=== PATIENT | female | born 1935 | race Caucasian/White ===

== ENCOUNTER 2017-08-23 11:43 | Emergency (ER) | payer MEDICARE, BC ==
[2017-08-23 11:58] VITALS: RESP 18; TEMP 98
[2017-08-23] MEDS ORDERED: SODIUM CHLORIDE 0.9% 500 ML IV STA (12:00)
--- NOTE | 2017-08-23 12:04 | ED ---
General Adult HPI - General Chief complaint: Recheck/Abnormal Lab/Rx Stated complaint: UTI Time Seen by Provider: 08/23/17 11:45 Source: patient, family, RN notes reviewed, old records reviewed Mode of arrival: EMS Limitations: physical limitation - History of Present Illness Initial comments: 81-year-old female presents for evaluation of fatigue and generalized weakness. Patient has been treated for a UTI over the past 2 days with Macrobid. 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 Patient states she has had subjective fever. She also complains of a mild cough. She has had one fall in the past week, she did receive x-rays at her primary care physician's office and was noted to have a small likely subacute fracture within the pelvis and she has outpatient follow- up with orthopedics regarding this fracture. She is nonambulatory at baseline. No vomiting, no diarrhea. - Related Data Home Medications Medication Instructions Recorded Confirmed Aspirin EC [Ecotrin] 325 mg PO DAILY 08/23/17 08/23/17 Atenolol [Tenormin] 50 mg PO BID 08/23/17 08/23/17 Calcium Carbonate [Calcium] 600 mg PO DAILY 08/23/17 08/23/17 Cholecalciferol (Vitamin D3) 2,000 unit PO DAILY 08/23/17 08/23/17 [Vitamin D3] Cranberry Fruit Concentrate 450 mg PO DAILY 08/23/17 08/23/17 [Cranberry] Gabapentin 600 mg PO TID 08/23/17 08/23/17 Nitrofurantoin Monohyd/M-Cryst 100 mg PO Q12HR 08/23/17 08/23/17 [Macrobid] Polyethylene Glycol 3350 [Miralax] 17 gm PO HS 08/23/17 08/23/17 Ranitidine HCl [Zantac] 150 mg PO BID 08/23/17 08/23/17 Super B Complex 1 tab PO DAILY 08/23/17 08/23/17 amLODIPine [Norvasc] 5 mg PO DAILY 08/23/17 08/23/17 Allergies Allergy/AdvReac Type Severity Reaction Status Date / Time Penicillins AdvReac Rash/Hives Verified 08/23/17 11:58 Sulfa (Sulfonamide AdvReac Rash/Hives Verified 08/23/17 11:58 Antibiotics) Review of Systems ROS Statement: Those systems with pertinent positive or pertinent negative responses have been documented in the HPI. ROS Other: All systems not noted in ROS Statement are negative. Past Medical History Past Medical History: CVA/TIA, GERD/Reflux, Hyperlipidemia, Hypertension Additional Past Medical History / Comment(s): uti, leg atrophy History of Any Multi-Drug Resistant Organisms: None Reported Past Surgical History: Appendectomy, Back Surgery Additional Past Surgical History / Comment(s): cervical, cataracts Past Psychological History: No Psychological Hx Reported Smoking Status: Never smoker Past Alcohol Use History: None Reported Past Drug Use History: None Reported General Exam Limitations: physical limitation General appearance: alert, in no apparent distress Head exam: Present: atraumatic, normocephalic Eye exam: Present: normal appearance, PERRL ENT exam: Present: normal exam Neck exam: Present: normal inspection. Absent: tenderness, meningismus Respiratory exam: Present: normal lung sounds bilaterally. Absent: respiratory distress, wheezes Cardiovascular Exam: Present: regular rate, normal rhythm GI/Abdominal exam: Present: soft, distended. Absent: tenderness Extremities exam: Present: other (Bilateral lower extremity atrophy and deformity, no edema warm bilaterally) Neurological exam: Present: alert, oriented X3, CN II-XII intact. Absent: motor sensory deficit Psychiatric exam: Present: normal affect, normal mood Skin exam: Present: warm, dry, intact. Absent: cyanosis, diaphoretic Course Vital Signs 08/23/17 11:43 Temperature 98.0 F Pulse Rate 88 Respiratory 18 Rate Blood Pressure 156/81 O2 Sat by Pulse 97 Oximetry Medical Decision Making - Medical Decision Making 81-year-old female presenting with concerns for continued UTI despite outpatient antibiotics. Patient complained of fatigue and generalized weakness. Laboratory studies were obtained, white blood cell count 10.7, hemoglobin 10.8. Electrolytes shows mild hyponatremia 132, creatinine normal influenza negative, chest x-ray negative for focal pneumonia. UA shows 8 white blood cells which in and 81 -year-old female who straight caths is essentially a negative urine, she is on Macrobid urine cultures from August 21 are positive for greater than 100,000 CFU per mL of E. coli and greater than 100, 000 CFU per mL enterococcus, both of these are susceptible to nitrofurantoin which is medication the patient is currently on. ANTONELLA of 32, this is discussed with the pharmacist and given normal kidney function nitrofurantoin is acceptable. Patient will continue her outpatient antibiotic, she will also continue MiraLAX for some constipation issues and will maintain her appointment both with her primary care physician and with orthopedics regarding her known pelvic fracture. - Lab Data Result diagrams: 08/23/17 12:41 08/23/17 12:41 Lab Results 08/23/17 08/23/17 08/23/17 Range/Units 12:32 12:41 12:41 WBC 10.7 H (3.8-10.6) k/uL RBC 3.37 L (3.80-5.40) m/uL Hgb 10.8 L (11.4-16.0) gm/dL Hct 31.5 L (34.0-46.0) % MCV 93.4 (80.0-100.0) fL MCH 32.1 (25.0-35.0) pg MCHC 34.4 (31.0-37.0) g/dL RDW 14.1 (11.5-15.5) % Plt Count 156 (150-450) k/uL Neutrophils % 82 % Lymphocytes % 7 % Monocytes % 8 % Eosinophils % 1 % Basophils % 1 % Neutrophils # 8.8 H (1.3-7.7) k/uL Lymphocytes # 0.7 L (1.0-4.8) k/uL Monocytes # 0.9 (0-1.0) k/uL Eosinophils # 0.1 (0-0.7) k/uL Basophils # 0.1 (0-0.2) k/uL PT (9.0-12.0) sec INR (<1.2) APTT (22.0-30.0) sec Sodium 132 L (137-145) mmol/L Potassium 4.0 (3.5-5.1) mmol/L Chloride 96 L (98-107) mmol/L Carbon Dioxide 26 (22-30) mmol/L Anion Gap 10 mmol/L BUN 19 H (7-17) mg/dL Creatinine 0.56 (0.52-1.04) mg/dL Est GFR (MDRD) Af Amer >60 (>60 ml/min/1.73 sqM) Est GFR (MDRD) Non-Af >60 (>60 ml/min/1.73 sqM) Glucose 122 H (74-99) mg/dL Plasma Lactic Acid Cole (0.7-2.0) mmol/L Calcium 9.9 (8.4-10.2) mg/dL Magnesium 1.8 (1.6-2.3) mg/dL Total Bilirubin 1.4 H (0.2-1.3) mg/dL AST 38 H (14-36) U/L ALT 40 (9-52) U/L Alkaline Phosphatase 59 (38-126) U/L Troponin I (0.000-0.034) ng/mL Total Protein 6.6 (6.3-8.2) g/dL Albumin 3.9 (3.5-5.0) g/dL Urine Color Urine Appearance (Clear) Urine pH (5.0-8.0) Ur Specific Lawson (1.001-1.035) Urine Protein (Negative) Urine Glucose (UA) (Negative) Urine Ketones (Negative) Urine Blood (Negative) Urine Nitrite (Negative) Urine Bilirubin (Negative) Urine Urobilinogen (<2.0) mg/dL Ur Leukocyte Esterase (Negative) Urine RBC (0-5) /hpf Urine WBC (0-5) /hpf Ur Squamous Epith Cells (0-4) /hpf Amorphous Sediment (None) /hpf Urine Bacteria (None) /hpf Urine Mucus (None) /hpf Influenza Type A RNA Not Detected (Not Detectd) Influenza Type B (PCR) Not Detected (Not Detectd) 08/23/17 08/23/17 08/23/17 Range/Units 12:41 12:41 12:41 WBC (3.8-10.6) k/uL RBC (3.80-5.40) m/uL Hgb (11.4-16.0) gm/dL Hct (34.0-46.0) % MCV (80.0-100.0) fL MCH (25.0-35.0) pg MCHC (31.0-37.0) g/dL RDW (11.5-15.5) % Plt Count (150-450) k/uL Neutrophils % % Lymphocytes % % Monocytes % % Eosinophils % % Basophils % % Neutrophils # (1.3-7.7) k/uL Lymphocytes # (1.0-4.8) k/uL Monocytes # (0-1.0) k/uL Eosinophils # (0-0.7) k/uL Basophils # (0-0.2) k/uL PT 10.9 (9.0-12.0) sec INR 1.1 (<1.2) APTT 23.2 (22.0-30.0) sec Sodium (137-145) mmol/L Potassium (3.5-5.1) mmol/L Chloride (98-107) mmol/L Carbon Dioxide (22-30) mmol/L Anion Gap mmol/L BUN (7-17) mg/dL Creatinine (0.52-1.04) mg/dL Est GFR (MDRD) Af Amer (>60 ml/min/1.73 sqM) Est GFR (MDRD) Non-Af (>60 ml/min/1.73 sqM) Glucose (74-99) mg/dL Plasma Lactic Acid Cole 1.0 (0.7-2.0) mmol/L Calcium (8.4-10.2) mg/dL Magnesium (1.6-2.3) mg/dL Total Bilirubin (0.2-1.3) mg/dL AST (14-36) U/L ALT (9-52) U/L Alkaline Phosphatase (38-126) U/L Troponin I 0.028 (0.000-0.034) ng/mL Total Protein (6.3-8.2) g/dL Albumin (3.5-5.0) g/dL Urine Color Urine Appearance (Clear) Urine pH (5.0-8.0) Ur Specific Lawson (1.001-1.035) Urine Protein (Negative) Urine Glucose (UA) (Negative) Urine Ketones (Negative) Urine Blood (Negative) Urine Nitrite (Negative) Urine Bilirubin (Negative) Urine Urobilinogen (<2.0) mg/dL Ur Leukocyte Esterase (Negative) Urine RBC (0-5) /hpf Urine WBC (0-5) /hpf Ur Squamous Epith Cells (0-4) /hpf Amorphous Sediment (None) /hpf Urine Bacteria (None) /hpf Urine Mucus (None) /hpf Influenza Type A RNA (Not Detectd) Influenza Type B (PCR) (Not Detectd) 08/23/17 Range/Units 13:28 WBC (3.8-10.6) k/uL RBC (3.80-5.40) m/uL Hgb (11.4-16.0) gm/dL Hct (34.0-46.0) % MCV (80.0-100.0) fL MCH (25.0-35.0) pg MCHC (31.0-37.0) g/dL RDW (11.5-15.5) % Plt Count (150-450) k/uL Neutrophils % % Lymphocytes % % Monocytes % % Eosinophils % % Basophils % % Neutrophils # (1.3-7.7) k/uL Lymphocytes # (1.0-4.8) k/uL Monocytes # (0-1.0) k/uL Eosinophils # (0-0.7) k/uL Basophils # (0-0.2) k/uL PT (9.0-12.0) sec INR (<1.2) APTT (22.0-30.0) sec Sodium (137-145) mmol/L Potassium (3.5-5.1) mmol/L Chloride (98-107) mmol/L Carbon Dioxide (22-30) mmol/L Anion Gap mmol/L BUN (7-17) mg/dL Creatinine (0.52-1.04) mg/dL Est GFR (MDRD) Af Amer (>60 ml/min/1.73 sqM) Est GFR (MDRD) Non-Af (>60 ml/min/1.73 sqM) Glucose (74-99) mg/dL Plasma Lactic Acid Cole (0.7-2.0) mmol/L Calcium (8.4-10.2) mg/dL Magnesium (1.6-2.3) mg/dL Total Bilirubin (0.2-1.3) mg/dL AST (14-36) U/L ALT (9-52) U/L Alkaline Phosphatase (38-126) U/L Troponin I (0.000-0.034) ng/mL Total Protein (6.3-8.2) g/dL Albumin (3.5-5.0) g/dL Urine Color Yellow Urine Appearance Cloudy H (Clear) Urine pH 7.0 (5.0-8.0) Ur Specific Lawson 1.015 (1.001-1.035) Urine Protein Trace H (Negative) Urine Glucose (UA) Negative (Negative) Urine Ketones Negative (Negative) Urine Blood Negative (Negative) Urine Nitrite Negative (Negative) Urine Bilirubin Negative (Negative) Urine Urobilinogen 2.0 (<2.0) mg/dL Ur Leukocyte Esterase Trace H (Negative) Urine RBC <1 (0-5) /hpf Urine WBC 8 H (0-5) /hpf Ur Squamous Epith Cells 6 H (0-4) /hpf Amorphous Sediment Occasional H (None) /hpf Urine Bacteria Rare H (None) /hpf Urine Mucus Rare H (None) /hpf Influenza Type A RNA (Not Detectd) Influenza Type B (PCR) (Not Detectd) Disposition Clinical Impression: UTI (urinary tract infection) Disposition: HOME SELF-CARE Condition: Fair Referrals: Corbin Browne DO [Primary Care Provider] - 1-2 days Angelo Baker DO [Doctor of Osteopathic Medicine] - 1-2 days Time of Disposition: 14:10
[2017-08-23 12:55] LABS: Basophils # (A) 0.1 k/uL (0-0.2); Basophils % (A) 1 %; Eosinophils # (A) 0.1 k/uL (0-0.7); Eosinophils % (A) 1 %; HCT 31.5 % (34.0-46.0); HGB 10.8 gm/dL (11.4-16.0); Lymphocytes # (A) 0.7 k/uL (1.0-4.8); Lymphocytes % (A) 7 %; MCH 32.1 pg (25.0-35.0); MCHC 34.4 g/dL (31.0-37.0); MCV 93.4 fL (80.0-100.0); Mean Platelet Volume 8.2; Monocytes # (A) 0.9 k/uL (0-1.0); Monocytes % (A) 8 %; Neutrophils # (A) 8.8 k/uL (1.3-7.7); Neutrophils % (A) 82 %; Platelet Count 156 k/uL (150-450); RBC 3.37 m/uL (3.80-5.40); RDW 14.1 % (11.5-15.5); WBC 10.7 k/uL (3.8-10.6)
[2017-08-23 13:06] LABS: ALT 40 U/L (9-52); AST 38 U/L (14-36); Albumin 3.9 g/dL (3.5-5.0); Alkaline Phosphatase 59 U/L (38-126); Anion Gap 10 mmol/L; Blood Urea Nitrogen 19 mg/dL (7-17); Calcium 9.9 mg/dL (8.4-10.2); Carbon Dioxide 26 mmol/L (22-30); Chloride 96 mmol/L (98-107); Glucose 122 mg/dL (74-99); Magnesium 1.8 mg/dL (1.6-2.3); Sodium 132 mmol/L (137-145); Total Bilirubin 1.4 mg/dL (0.2-1.3); Total Protein 6.6 g/dL (6.3-8.2)
[2017-08-23 13:11] LABS: INR 1.1 (<1.2); Partial Thromboplastin Time 23.2 sec (22.0-30.0); Prothrombin Time 10.9 sec (9.0-12.0)
--- NOTE | 2017-08-23 13:34 | XR ---
EXAMINATION TYPE: XR chest 2V DATE OF EXAM: 08/23/2017 HISTORY: Weakness. REFERENCE: NONE. FINDINGS: Heart is mildly enlarged. The lungs are overinflated. There are senescent changes within th e lungs. There is no focal pneumonia or edema. IMPRESSION: 1. COPD. 2. MILD CARDIOMEGALY.
[2017-08-23 14:03] LABS: Amorphous Sediment,Urine Occasional /hpf; Appearance,Urine Cloudy (Clear); Bacteria,Urine Rare /hpf; Bilirubin,Urine Negative (Negative); Blood,Urine Negative (Negative); Color,Urine Yellow; Glucose,Urine (UA) Negative (Negative); Ketones,Urine Negative (Negative); Leukocyte Esterase,Urine Trace (Negative); Mucus,Urine Rare /hpf; Nitrite,Urine Negative (Negative); Protein,Urine Trace (Negative); RBC,Urine <1 /hpf (0-5); Specific Gravity,Urine 1.015 (1.001-1.035); Squamous Epithelial Cell,Urine 6 /hpf (0-4); WBC,Urine 8 /hpf (0-5)
[2017-08-23 14:36] VITALS: BP 179/69; PULSE 74
== END 2017-08-23 14:34 | disposition home or self-care (01) ==
LOC: EC 11:43
DX: N39.0 Urinary tract infection, site not specified (principal); E87.1 Hypo-osmolality and hyponatremia; M62.562 Muscle wasting and atrophy, not elsewhere classified, left lower leg; M62.561 Muscle wasting and atrophy, not elsewhere classified, right lower leg; R53.83 Other fatigue; R53.1 Weakness; R50.9 Fever, unspecified; R05 Cough; I10 Essential (primary) hypertension; K21.9 Gastro-esophageal reflux disease without esophagitis; Z79.82 Long term (current) use of aspirin; Z79.899 Other long term (current) drug therapy; Z88.0 Allergy status to penicillin; Z88.2 Allergy status to sulfonamides
CPT/HCPCS: 36415; 71046; 80053; 81001; 83605; 83735; 84484; 85025; 85610; 85730; 87040; 87086; 87502; 96360; 96361; 99285

== ENCOUNTER → 2017-10-28 | Outpatient (CLI) | payer MEDICARE, BC ==
[2017-10-28 13:04] LABS: HCT 35.9 % (34.0-46.0); HGB 11.6 gm/dL (11.4-16.0); MCH 29.9 pg (25.0-35.0); MCHC 32.3 g/dL (31.0-37.0); MCV 92.7 fL (80.0-100.0); Platelet Count 282 k/uL (150-450); RBC 3.87 m/uL (3.80-5.40); WBC 7.7 k/uL (3.8-10.6)
[2017-10-28 20:25] LABS: Iron Saturation 17.73 (12.00-45.00)
== END | disposition home or self-care (01) ==
LOC: LABWHC1 12:42
PROVIDERS: ATTEND Family Medicine
DX: D64.9 Anemia, unspecified (principal)
CPT/HCPCS: 36415; 82728; 83540; 83550; 85027

== ENCOUNTER 2019-01-13 00:20 | Emergency (ER) | payer MEDICARE, BC, OTHER ==
[2019-01-13 00:57] VITALS: RESP 18; TEMP 98.1
[2019-01-13] MEDS ORDERED: DIPH,PERTUS(ACELL)TETVAC-LF 0.5 ML VIAL IM ONE (01:14)
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
--- NOTE | 2019-01-13 01:54 | CT ---
EXAM: CT Head Without Intravenous Contrast CLINICAL HISTORY: ITS.REASON CT Reason: fall TECHNIQUE: Axial computed tomography images of the head/brain without intravenous contrast. CTDI is 45 mGy and DLP is 1047 mGy-cm. This CT exam was performed using one or more of the following dose reduction techniques: automated exposure control, adjustment of the mA and/or kV according to patient size, and/or use of iterative reconstruction technique. COMPARISON: 09/02/17 CT head FINDINGS: Brain: No hemorrhage, large hypodensity, or mass effect. Chronic microvascular ischemic changes. Ventricles: No hydrocephalus. Age-appropriate cerebral volume loss. Bones/joints: Unremarkable. Soft tissues: Unremarkable. Sinuses: Unremarkable. Mastoid air cells: Clear. IMPRESSION: No acute hemorrhage, hydrocephalus, or mass effect. EXAM: CT Cervical Spine Without Intravenous Contrast CLINICAL HISTORY: ITS.REASON CT Reason: fall TECHNIQUE: Axial computed tomography images of the cervical spine without intravenous contrast. CTDI is 12 mGy and DLP is 317 mGy-cm. This CT exam was performed using one or more of the following dose reduction techniques: automated exposure control, adjustment of the mA and/or kV according to patient size, and/or use of iterative reconstruction technique. COMPARISON: No relevant prior studies available. FINDINGS: Vertebrae: No acute fracture. Discs/spinal canal/neural foramina: Severe multilevel degenerative disc disease. CPPD at the dens. Mild spinal canal stenosis at C6-7 secondary to 4 mm anterolisthesis. 2 mm anterolisthesis at C4-5. Soft tissues: Unremarkable. IMPRESSION: No acute fracture or subluxation.
[2019-01-13] MEDS ORDERED: LIDOCAINE 1% INJ 10MG/ML (20 ML MDV) SQ ONE (02:59)
[2019-01-13 05:00] VITALS: BP 181/86; PULSE 69
--- NOTE | 2019-01-14 04:58 | CDI ---
Documentation Clarification OP Dear Alf COOMBS MD Please do addendum to ED report for missing Physical examination. Thank you, Balbir Caballero Carrot Buncher If you have any questions, please contact Laboratory Asst at [phone] [facility]
== END 2019-01-13 04:58 | disposition home or self-care (01) ==
LOC: EC 00:20
DX: S01.81XA Laceration without foreign body of other part of head, initial encounter (principal); K21.9 Gastro-esophageal reflux disease without esophagitis; I10 Essential (primary) hypertension; Z23 Encounter for immunization; Z86.14 Personal history of Methicillin resistant Staphylococcus aureus infection; Z79.899 Other long term (current) drug therapy; Z88.0 Allergy status to penicillin; Z88.2 Allergy status to sulfonamides; Z86.73 Personal history of transient ischemic attack (TIA), and cerebral infarction without residual deficits; W05.0XXA Fall from non-moving wheelchair, initial encounter; Y92.129 Unspecified place in nursing home as the place of occurrence of the external cause
CPT/HCPCS: 99284; 12013; 90471; 72125; 70450; 90715; J2001

== ENCOUNTER 2019-01-16 16:14 | Inpatient (IN) | payer MEDICARE, BC, OTHER ==
--- NOTE | 2019-01-16 17:25 | ED ---
General Adult HPI - General Chief complaint: Weakness Stated complaint: Weakness Time Seen by Provider: 01/16/19 16:27 Source: patient, EMS, RN notes reviewed Mode of arrival: EMS Limitations: no limitations - History of Present Illness Initial comments: Dictation was produced using [employer] dictation software. please excuse any grammatical, word or spelling errors. Chief Complaint: 83-year-old female multiple comorbidities presents with generalized weakness. History of Present Illness: 83-year-old female she has multiple comorbidities. She presents today with generalized weakness. She was transferred to our emergency Department from residential. Patient recently just completed a course of antibiotics for severe urinary tract infection. 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 She requires frequent catheterizations. Patient is accompanied by daughter who states that she was placed in a wheelchair. She was seen dozing off and slouching forward. Patient reports that she does not have the strength to sit up. Patient denies any focal neurologic deficits. Daughter believes that patient's weakness is secondary to completion of antibiotics. Patient has history of what appears to be a PICC line in the right upper extremity His PICC line was used to administer IV medications. Chart review shows that patient was positive for Proteus seen on a urine culture from 14 days ago. Daughter reports the patient hasn't been her usual self and is been a little bit more confused than usual. The ROS documented in this emergency department record has been reviewed and confirmed by me. Those systems with pertinent positive or negative responses have been documented in the HPI. All other systems are other negative and/or noncontributory. PHYSICAL EXAM: General Impression: Alert and oriented x3, not in acute distress HEENT: Normocephalic atraumatic, extra-ocular movements intact, pupils equal and reactive to light bilaterally, mucous membranes moist. Cardiovascular: Heart regular rate and rhythm, S1&S2 audible, no murmurs, rubs or gallops Chest: Lungs clear to auscultation bilaterally, no rhonchi, no wheeze, no rales Abdomen: Bowel sounds present, abdomen soft, non-tender, non-distended, no organomegaly Musculoskeletal: Pulses present and equal in all extremities, no peripheral edema Motor: no focal deficits noted Neurological: CN II-XII grossly intact, no focal motor or sensory deficits noted Skin: Intact with no visualized rashes Psych: Normal affect and mood ED course: 83-year-old female presents with generalized weakness and mild mental status changes.. Signs upon arrival are within acceptable limits.Nursing was called patient just completed a course of ertapenem Laboratory evaluation obtained. CBC, coag panel, metabolic panel is unremarkable. Troponin is elevated 0.048. Urinalysis shows 8 white blood cells. Urine culture pending. Chest x-ray is nonacute. Pelvis x-ray and CT head is nonacute. CT angio obtained as patient had fallen recently and didn't exhibit signs of confusion to daughter. There is concern for delayed bleed. CT however is unremarkable. Chest x-ray shows cardiac mainly with mild in terstitial edema suggest CHF. Patient reevaluated bedside and denies any chest pain or shortness of breath currently. Clinical presentation is concerning for non-ST segment elevation MT. Patient given aspirin and started on heparin drip. We will have patient admitted with cardiology consultation. Discussed patient case with Dr. Welch who is willing to accept care for patient. EKG interpretation: Ventricular rate 64, sinus rhythm,. Interval to 22, QS 90, QTC 466. No [place] prolongation, no QTC prolongation, no ST or T-wave changes noted. EKG compared to Gen. 2017 showing no changes. Overall, this EKG is unremarkable - Related Data Home Medications Medication Instructions Recorded Confirmed Ranitidine HCl [Zantac] 150 mg PO BID@0600,2100 08/23/17 01/16/19 Acetaminophen Tab [Tylenol Tab] 650 mg PO Q6H PRN 01/16/19 01/16/19 Aspirin EC [Ecotrin] 325 mg PO DAILY@0901/16/19 01/16/19 Atenolol 100 mg PO DAILY@89901/16/19 01/16/19 Bethanechol Chloride 25 mg PO TID@1000,1300,1800 01/16/19 01/16/19 Calcium Carbonate/Vitamin D3 1 tab PO BID@0900,1700 01/16/19 01/16/19 [Calcium 600-Vit D3 400 [place]] Celecoxib [CeleBREX] 200 mg PO DAILY@0900 01/16/19 01/16/19 Ferrous Sulfate [Feosol] 325 mg PO DAILY@0601/16/19 01/16/19 Fexofenadine HCl 60 mg PO DAILY@0900 01/16/19 01/16/19 Furosemide [Lasix] 20 mg PO DAILY@0601/16/19 01/16/19 Gabapentin [Neurontin] 200 mg PO TID@0600,1300,2100 01/16/19 01/16/19 Levothyroxine Sodium [Synthroid] 75 mcg PO DAILY@0600 01/16/19 01/16/19 Lovastatin [Altoprev] 40 mg PO HS@2100 01/16/19 01/16/19 Multivitamins, Thera [Multivitamin 1 tab PO DAILY@0901/16/19 01/16/19 (formulary)] Potassium Chloride ER [K-Dur 20] 20 meq PO BID@0900,1700 01/16/19 01/16/19 Sertraline [Zoloft] 50 mg PO DAILY@0901/16/19 01/16/19 guaiFENesin-DM 100-10MG/5ML 10 ml PO Q4H PRN 01/16/19 01/16/19 [Robitussin DM] hydrALAZINE HCL [Apresoline] 25 mg PO DAILY PRN 01/16/19 01/16/19 Allergies Allergy/AdvReac Type Severity Reaction Status Date / Time ciprofloxacin [From Cipro] Allergy Unknown Verified 01/16/19 16:40 codeine Allergy Unknown Verified 01/16/19 16:40 morphine Allergy Unknown Verified 01/16/19 16:40 Penicillins Allergy Rash/Hives Verified 01/16/19 16:40 shellfish derived [Shellfish] Allergy Unknown Verified 01/16/19 16:40 strawberry Allergy Unknown Verified 01/16/19 16:40 Sulfa (Sulfonamide Allergy Rash/Hives Verified 01/16/19 16:40 Antibiotics) Review of Systems ROS Statement: Those systems with pertinent positive or pertinent negative responses have been documented in the HPI. ROS Other: All systems not noted in ROS Statement are negative. Past Medical History Past Medical History: CVA/TIA, GERD/Reflux, Hyperlipidemia, Hypertension, Osteoarthritis (OA) Additional Past Medical History / Comment(s): uti, leg atrophy, past blood clot after back sx. WOUND TO LT BUTTOCK, self caths for over 40 years History of Any Multi-Drug Resistant Organisms: ESBL, MRSA Date of last positivie culture/infection: ESBL 12/18/18 MRSA 03/14/18 MDRO Source:: MRSA / ESBL URINE Past Surgical History: Appendectomy, Back Surgery, Tonsillectomy Additional Past Surgical History / Comment(s): cervical spine sx, cataracts-lens implants Past Anesthesia/Blood Transfusion Reactions: Postoperative Nausea & Vomiting (PONV) Additional Past Anesthesia/Blood Transfusion Reaction / Comment(s): past blood transfusion-no reaction Past Psychological History: Depression Smoking Status: Never smoker Past Alcohol Use History: Occasional Past Drug Use History: None Reported - Past Family History Mother History Unknown: Yes Additional Family Medical History / Comment(s): mom in her sleep, unk cause Father Family Medical History: Myocardial Infarction (MT) General Exam Limitations: no limitations Course Vital Signs 01/16/19 01/16/19 01/16/19 16:16 16:30 17:00 Temperature 97.3 F L Pulse Rate 65 Respiratory 18 Rate Blood Pressure 123/67 123/67 119/75 O2 Sat by Pulse 100 98 98 Oximetry 01/16/19 01/16/19 01/16/19 17:30 18:00 18:30 Temperature Pulse Rate Respiratory 18 Rate Blood Pressure 126/79 130/73 124/66 O2 Sat by Pulse 100 97 100 Oximetry Medical Decision Making - Lab Data Result diagrams: 01/16/19 17:57 01/16/19 16:20 Lab Results 01/16/19 01/16/19 01/16/19 Range/Units 16:20 16:20 16:20 WBC (3.8-10.6) k/uL RBC (3.80-5.40) m/uL Hgb (11.4-16.0) gm/dL Hct (34.0-46.0) % MCV (80.0-100.0) fL MCH (25.0-35.0) pg MCHC (31.0-37.0) g/dL RDW (11.5-15.5) % Plt Count (150-450) k/uL Neutrophils % % Lymphocytes % % Monocytes % % Eosinophils % % Basophils % % Neutrophils # (1.3-7.7) k/uL Lymphocytes # (1.0-4.8) k/uL Monocytes # (0-1.0) k/uL Eosinophils # (0-0.7) k/uL Basophils # (0-0.2) k/uL PT 10.7 (9.0-12.0) sec INR 1.0 (<1.2) Sodium 137 (137-145) mmol/L Potassium 4.9 (3.5-5.1) mmol/L Chloride 104 (98-107) mmol/L Carbon Dioxide 24 (22-30) mmol/L Anion Gap 9 mmol/L BUN 31 H (7-17) mg/dL Creatinine 1.04 (0.52-1.04) mg/dL Est GFR (CKD-EPI)AfAm 57 (>60 ml/min/1.73 sqM) Est GFR (CKD-EPI)NonAf 49 (>60 ml/min/1.73 sqM) Glucose 105 H (74-99) mg/dL Plasma Lactic Acid Cole (0.7-2.0) mmol/L Calcium 10.1 (8.4-10.2) mg/dL Magnesium 2.0 (1.6-2.3) mg/dL Total Bilirubin 0.2 (0.2-1.3) mg/dL AST 34 (14-36) U/L ALT 20 (9-52) U/L Alkaline Phosphatase 103 (38-126) U/L Ammonia (<30) umol/L Troponin I (0.000-0.034) ng/mL NT-Pro-B Natriuret Pep pg/mL Total Protein 6.8 (6.3-8.2) g/dL Albumin 4.0 (3.5-5.0) g/dL Urine Color Urine Appearance (Clear) Urine pH (5.0-8.0) Ur Specific [place] (1.001-1.035) Urine Protein (Negative) Urine Glucose (UA) (Negative) Urine Ketones (Negative) Urine Blood (Negative) Urine Nitrite (Negative) Urine Bilirubin (Negative) Urine Urobilinogen (<2.0) mg/dL Ur Leukocyte Esterase (Negative) Urine RBC (0-5) /hpf Urine WBC (0-5) /hpf Ur Squamous Epith Cells (0-4) /hpf Urine Bacteria (None) /hpf Hyaline Casts (0-2) /lpf Urine Mucus (None) /hpf 01/16/19 01/16/19 01/16/19 Range/Units 16:20 17:28 17:57 WBC 7.4 (3.8-10.6) k/uL RBC 3.91 (3.80-5.40) m/uL Hgb 11.7 (11.4-16.0) gm/dL Hct 37.0 (34.0-46.0) % MCV 94.7 (80.0-100.0) fL MCH 30.0 (25.0-35.0) pg MCHC 31.7 (31.0-37.0) g/dL RDW 13.8 (11.5-15.5) % Plt Count 264 (150-450) k/uL Neutrophils % 74 % Lymphocytes % 12 % Monocytes % 6 % Eosinophils % 6 % Basophils % 0 % Neutrophils # 5.5 (1.3-7.7) k/uL Lymphocytes # 0.9 L (1.0-4.8) k/uL Monocytes # 0.5 (0-1.0) k/uL Eosinophils # 0.4 (0-0.7) k/uL Basophils # 0.0 (0-0.2) k/uL PT (9.0-12.0) sec INR (<1.2) Sodium (137-145) mmol/L Potassium (3.5-5.1) mmol/L Chloride (98-107) mmol/L Carbon Dioxide (22-30) mmol/L Anion Gap mmol/L BUN (7-17) mg/dL Creatinine (0.52-1.04) mg/dL Est GFR (CKD-EPI)AfAm (>60 ml/min/1.73 sqM) Est GFR (CKD-EPI)NonAf (>60 ml/min/1.73 sqM) Glucose (74-99) mg/dL Plasma Lactic Acid Cole 1.1 (0.7-2.0) mmol/L Calcium (8.4-10.2) mg/dL Magnesium (1.6-2.3) mg/dL Total Bilirubin (0.2-1.3) mg/dL AST (14-36) U/L ALT (9-52) U/L Alkaline Phosphatase (38-126) U/L Ammonia <9 (<30) umol/L Troponin I 0.048 H* (0.000-0.034) ng/mL NT-Pro-B Natriuret Pep pg/mL Total Protein (6.3-8.2) g/dL Albumin (3.5-5.0) g/dL Urine Color Urine Appearance (Clear) Urine pH (5.0-8.0) Ur Specific [place] (1.001-1.035) Urine Protein (Negative) Urine Glucose (UA) (Negative) Urine Ketones (Negative) Urine Blood (Negative) Urine Nitrite (Negative) Urine Bilirubin (Negative) Urine Urobilinogen (<2.0) mg/dL Ur Leukocyte Esterase (Negative) Urine RBC (0-5) /hpf Urine WBC (0-5) /hpf Ur Squamous Epith Cells (0-4) /hpf Urine Bacteria (None) /hpf Hyaline Casts (0-2) /lpf Urine Mucus (None) /hpf 01/16/19 01/16/19 Range/Units 17:57 18:30 WBC (3.8-10.6) k/uL RBC (3.80-5.40) m/uL Hgb (11.4-16.0) gm/dL Hct (34.0-46.0) % MCV (80.0-100.0) fL MCH (25.0-35.0) pg MCHC (31.0-37.0) g/dL RDW (11.5-15.5) % Plt Count (150-450) k/uL Neutrophils % % Lymphocytes % % Monocytes % % Eosinophils % % Basophils % % Neutrophils # (1.3-7.7) k/uL Lymphocytes # (1.0-4.8) k/uL Monocytes # (0-1.0) k/uL Eosinophils # (0-0.7) k/uL Basophils # (0-0.2) k/uL PT (9.0-12.0) sec INR (<1.2) Sodium (137-145) mmol/L Potassium (3.5-5.1) mmol/L Chloride (98-107) mmol/L Carbon Dioxide (22-30) mmol/L Anion Gap mmol/L BUN (7-17) mg/dL Creatinine (0.52-1.04) mg/dL Est GFR (CKD-EPI)AfAm (>60 ml/min/1.73 sqM) Est GFR (CKD-EPI)NonAf (>60 ml/min/1.73 sqM) Glucose (74-99) mg/dL Plasma Lactic Acid Cole (0.7-2.0) mmol/L Calcium (8.4-10.2) mg/dL Magnesium (1.6-2.3) mg/dL Total Bilirubin (0.2-1.3) mg/dL AST (14-36) U/L ALT (9-52) U/L Alkaline Phosphatase (38-126) U/L Ammonia (<30) umol/L Troponin I (0.000-0.034) ng/mL NT-Pro-B Natriuret Pep 1120 pg/mL Total Protein (6.3-8.2) g/dL Albumin (3.5-5.0) g/dL Urine Color Light Yellow Urine Appearance Clear (Clear) Urine pH 5.5 (5.0-8.0) Ur Specific [place] 1.010 (1.001-1.035) Urine Protein Negative (Negative) Urine Glucose (UA) Negative (Negative) Urine Ketones Negative (Negative) Urine Blood Negative (Negative) Urine Nitrite Negative (Negative) Urine Bilirubin Negative (Negative) Urine Urobilinogen <2.0 (<2.0) mg/dL Ur Leukocyte Esterase Moderate H (Negative) Urine RBC 1 (0-5) /hpf Urine WBC 8 H (0-5) /hpf Ur Squamous Epith Cells 2 (0-4) /hpf Urine Bacteria Rare H (None) /hpf Hyaline Casts 1 (0-2) /lpf Urine Mucus Rare H (None) /hpf Disposition Clinical Impression: NSTEMI (non-ST elevated myocardial infarction) Disposition: ADMITTED IP TO THIS [facility] Condition: Fair Referrals: Lynn Harris MD [Primary Care Provider] - 1-2 days Decision Time: 20:55
[2019-01-16 17:34] LABS: Prothrombin Time 10.7 sec (9.0-12.0)
[2019-01-16 17:35] LABS: Calcium 10.1 mg/dL (8.4-10.2); Potassium 4.9 mmol/L (3.5-5.1); Total Bilirubin 0.2 mg/dL (0.2-1.3); Total Protein 6.8 g/dL (6.3-8.2)
[2019-01-16 17:46] LABS: Ammonia <9 umol/L (<30); Lactic Acid, Venous 1.1 mmol/L (0.7-2.0)
[2019-01-16 18:03] LABS: Basophils % (A) 0 %; Eosinophils # (A) 0.4 k/uL (0-0.7); Eosinophils % (A) 6 %; HGB 11.7 gm/dL (11.4-16.0); Lymphocytes # (A) 0.9 k/uL (1.0-4.8); Lymphocytes % (A) 12 %; MCHC 31.7 g/dL (31.0-37.0); MCV 94.7 fL (80.0-100.0); Mean Platelet Volume 6.8; Monocytes # (A) 0.5 k/uL (0-1.0); Monocytes % (A) 6 %; Neutrophils # (A) 5.5 k/uL (1.3-7.7); Neutrophils % (A) 74 %; Platelet Count 264 k/uL (150-450); RBC 3.91 m/uL (3.80-5.40); RDW 13.8 % (11.5-15.5); WBC 7.4 k/uL (3.8-10.6)
--- NOTE | 2019-01-16 18:06 | XR ---
EXAMINATION TYPE: XR pelvis AP view DATE OF EXAM: 01/16/2019 CLINICAL HISTORY: Increased weakness and pelvic pain TECHNIQUE: A single AP view of the pelvis is obtained. COMPARISON: CT abdomen and pelvis September 02, 2017 FINDINGS: Osseous structures are demineralized which is noted to lower radiographic sensitivity. The re is no acute fracture/dislocation evident in the pelvis. There are old healed fractures through the right superior and inferior pelvic rami. The sacroiliac joints appear symmetric and unremarkable. Mo derate superior joint space loss in both hips is redemonstrated with mild to moderate acetabular spur ring The overlying soft tissue appears unremarkable. IMPRESSION: There are old fractures right superior and inferior pelvic rami. No new acute fracture c learly seen.
--- NOTE | 2019-01-16 18:08 | XR ---
EXAMINATION TYPE: XR chest 2V DATE OF EXAM: 01/16/2019 COMPARISON: Chest x-ray September 02, 2017 HISTORY: Fall injury with pain. TECHNIQUE: Frontal and lateral views of the chest are obtained. FINDINGS: Low lung volumes and cardiomegaly with atherosclerotic and ectatic aorta is redemonstrated. Tracheal deviation to the right is noted . Some increased markings bilaterally without new focal co nsolidation, pleural effusion, or pneumothorax. The osseous structures are demineralized. Degenerativ e change throughout the spine and both shoulders is present. IMPRESSION: Low lung volumes and cardiomegaly with mild interstitial edema suspected. Correlate clin ically for fluid overload state and/or CHF exacerbation
--- NOTE | 2019-01-16 18:12 | CT ---
EXAMINATION TYPE: CT brain cspine wo con DATE OF EXAM: 01/16/2019 COMPARISON: CT brain and cervical spine 3 days ago HISTORY: Pt fall. Bruising bilateral orbits CT DLP: 1217 mGycm. Automated Exposure Control for Dose Reduction was Utilized. TECHNIQUE: CT scan of the head and cervical spine are performed without contrast. FINDINGS: There is no acute intracranial hemorrhage or midline shift identified. Diffuse ventricula r and sulcal prominence is redemonstrated. The calvarium is intact. The globes are intact and the vis ualized sinuses are clear. Cervical spine is visualized in its entirety from C1 through upper thoracic levels and demonstrates s table alignment without evidence of acute fracture or dislocation. There is slight grade 1 retrolisth esis of T1 on T2 and C6 on C7 redemonstrated with grade 1 anterolisthesis C3 on C4 and C4 on C5 again seen. Osseous structures are demineralized. There is advanced disc space narrowing C5-C6 level. Ther e is moderate to advanced disc space narrowing with moderate anterior spurring C6-C7 level. There is [id number] disc space narrowing and spurring C7-T1 level. There is multilevel disc space narrow ing and spurring in the upper thoracic spine. Prevertebral soft tissue appears within normal limits. The C1-C2 articulation shows left greater than right spurring and narrowing on the coronal images. There is marked thickening of the posterior longitudinal ligament at foramen magnum effacing anterior spinal canal. Axial images show multilevel uncovertebral facet degenerative changes contributing to multilevel neural foraminal narrowing. There is ossific fusion bilateral posterior C3-C4 elements red emonstrated. Moderate multilevel anterior spurring is again seen. Lung apices show peripheral reticul ation and fibrosis. Moderate calcified plaque bilateral carotid bulb level, right greater than the le ft is redemonstrated. IMPRESSION: 1. There is no acute fracture or dislocation evident in the cervical spine. Multilevel spondylolisthe sis and degenerative changes as detailed above without significant interval change. 2. No acute intracranial hemorrhage or midline shift is seen. Moderate diffuse cerebral atrophy and c hronic small vessel ischemic change is redemonstrated.
[2019-01-16] MEDS ORDERED: ASPIRIN 81 MG PO STA (18:46)
[2019-01-16 19:05] LABS: Appearance,Urine Clear (Clear); Bacteria,Urine Rare /hpf; Bilirubin,Urine Negative (Negative); Blood,Urine Negative (Negative); Color,Urine Light Yellow; Glucose,Urine (UA) Negative (Negative); Hyaline Casts,Urine 1 /lpf (0-2); Ketones,Urine Negative (Negative); Leukocyte Esterase,Urine Moderate (Negative); Mucus,Urine Rare /hpf; Nitrite,Urine Negative (Negative); PH, Urine 5.5 (5.0-8.0); Protein,Urine Negative (Negative); RBC,Urine 1 /hpf (0-5); Squamous Epithelial Cell,Urine 2 /hpf (0-4); Urobilinogen,Urine <2.0 mg/dL (<2.0); WBC,Urine 8 /hpf (0-5)
[2019-01-16] MEDS ORDERED: HEPARIN SODIUM,PORCINE 5,000 UNIT/ML 1 ML VIAL IV PRN (20:04)
[2019-01-16] MEDS ORDERED: HEPARIN SODIUM,PORCINE 5,000 UNIT/ML 1 ML VIAL IV ONE (20:04)
[2019-01-16] MEDS: HEPARIN SOD,PORK IN 0.45% NACL 25,000 UNIT in 0.45% NACL 1 250ML.BAG IV SCH (20:52)
[2019-01-16] MEDS ORDERED: NITROGLYCERIN SL TABS 0.4 MG TAB SUBLINGUAL PRN (20:55)
[2019-01-17] MEDS ORDERED: ACETAMINOPHEN TAB 325 MG TAB PO PRN ×2 (00:16→12:09)
[2019-01-17 01:33] LABS: Cholesterol 154 mg/dL (<200); HDL Cholesterol 41 mg/dL (40-60); LDL Cholesterol,Calculated 80 mg/dL (0-99); Triglycerides 165 mg/dL (<150)
[2019-01-17] MEDS: FUROSEMIDE 20 MG TAB PO SCH (06:24)
[2019-01-17 08:11] VITALS: RESP 20
[2019-01-17] MEDS: ASPIRIN 325 MG TAB PO SCH (08:11)
[2019-01-17] MEDS: ATENOLOL 50 MG TAB PO SCH (08:11)
--- NOTE | 2019-01-17 08:35 | P.CRDCN ---
History of Present Illness Consult date: 01/17/19 Requesting physician: Lynn Harris Reason for Consult (text): Abnormal troponins Chief complaint: Weakness History of present illness: This is a pleasant 83-year-old female with history of hypertension, hyperlipidemia, who had a recent fall earlier this month, she incurred significant amount of ecchymosis around the right orbital area. Does have family history of coronary artery disease but herself has never had any cardiac issues in the past. She presents to the hospital on this occasion with symptoms of weakness and generalized malaise, she denies any chest discomfort, no nausea, she does state that approximately a week ago she was dealing with some diarrhea. Patient does have chronic UTIs for which she has been receiving IV antibiotics and since then in general has not been feeling well. Chest x-ray was performed on admission here which did not reveal any acute findings. CT of the brain was performed which did not reveal any acute changes. No acute fractures in the pelvis area. EKG shows a normal sinus rhythm with nonspecific ST-T wave changes. Repeat EKG this morning shows a normal sinus rhythm with first-degree AV block and nonspecific changes Blood pressure 148/60 with a heart rate in the 70s, 98% on room air. White blood cell count 7.4, hemoglobin 11.7, platelet count 264. Sodium 137, potassium 4.9, BUN 31 and creatinine 1.0. BNP level 1120. Troponin is 0.048, 0.041, 0.053. Urine shows moderate amount of leukocyte Estrace. At the time of my examination this morning, patient has no complaints other than she just feels mildly weak. Past Medical History Past Medical History: CVA/TIA, GERD/Reflux, Hyperlipidemia, Hypertension, Osteoarthritis (OA) Additional Past Medical History / Comment(s): uti, leg atrophy, past blood clot after back sx. self caths for over 40 years,RECENT FALL @ [facility], SUTURES TO R FOREHEAD AND STERI STRIPS TO LEFT FOREARM. History of Any Multi-Drug Resistant Organisms: ESBL, MRSA Date of last positivie culture/infection: ESBL 12/18/18 MRSA 03/14/18 MDRO Source:: MRSA / ESBL URINE Past Surgical History: Appendectomy, Back Surgery, Tonsillectomy Additional Past Surgical History / Comment(s): cervical spine sx, cataracts-lens implants Past Anesthesia/Blood Transfusion Reactions: Postoperative Nausea & Vomiting (PONV) Additional Past Anesthesia/Blood Transfusion Reaction / Comment(s): past blood transfusion-no reaction Past Psychological History: Depression Additional Psychological History / Comment(s): PT CURRENTLY LIVES AT [facility]. Smoking Status: Never smoker Past Alcohol Use History: Occasional Past Drug Use History: None Reported - Past Family History Mother History Unknown: Yes Additional Family Medical History / Comment(s): mom in her sleep, unk cause Father Family Medical History: Myocardial Infarction ([place]) Medications and Allergies Home Medications Medication Instructions Recorded Confirmed Type Ranitidine HCl [Zantac] 150 mg PO BID@0600,2100 08/23/17 01/16/19 History Acetaminophen Tab [Tylenol Tab] 650 mg PO Q6H PRN 01/16/19 01/16/19 History Aspirin EC [Ecotrin] 325 mg PO DAILY@0901/16/19 01/16/19 History Atenolol 100 mg PO DAILY@0901/16/19 01/16/19 History Bethanechol Chloride 25 mg PO TID@1000,1300,1800 01/16/19 01/16/19 History Calcium Carbonate/Vitamin D3 1 tab PO BID@0900,1700 01/16/19 01/16/19 History [Calcium 600-Vit D3 400 Caplet] Celecoxib [CeleBREX] 200 mg PO DAILY@89901/16/19 01/16/19 History Ferrous Sulfate [Feosol] 325 mg PO DAILY@59901/16/19 01/16/19 History Fexofenadine HCl 60 mg PO DAILY@0901/16/19 01/16/19 History Furosemide [Lasix] 20 mg PO DAILY@59901/16/19 01/16/19 History Gabapentin [Neurontin] 200 mg PO TID@0600,1300,2100 01/16/19 01/16/19 History Levothyroxine Sodium [Synthroid] 75 mcg PO DAILY@59901/16/19 01/16/19 History Lovastatin [Altoprev] 40 mg PO HS@209901/16/19 01/16/19 History Multivitamins, Thera [Multivitamin 1 tab PO DAILY@0900 01/16/19 01/16/19 History (formulary)] Potassium Chloride ER [K-Dur 20] 20 meq PO BID@0900,1700 01/16/19 01/16/19 History Sertraline [Zoloft] 50 mg PO DAILY@0900 01/16/19 01/16/19 History guaiFENesin-DM 100-10MG/5ML 10 ml PO Q4H PRN 01/16/19 01/16/19 History [Robitussin DM] hydrALAZINE HCL [Apresoline] 25 mg PO DAILY PRN 01/16/19 01/16/19 History Allergies Allergy/AdvReac Type Severity Reaction Status Date / Time ciprofloxacin [From Cipro] Allergy Unknown Verified 01/16/19 16:40 codeine Allergy Unknown Verified 01/16/19 16:40 morphine Allergy Unknown Verified 01/16/19 16:40 Penicillins Allergy Rash/Hives Verified 01/16/19 16:40 shellfish derived [Shellfish] Allergy Unknown Verified 01/16/19 16:40 strawberry Allergy Unknown Verified 01/16/19 16:40 Sulfa (Sulfonamide Allergy Rash/Hives Verified 01/16/19 16:40 Antibiotics) Physical Exam Vitals: Vital Signs Temp Pulse Pulse Resp BP BP Pulse Ox 01/17/19 07:45 98.0 F 70 20 149/67 98 01/17/19 03:08 97.5 F L 65 24 136/81 92 L 01/17/19 00:00 64 18 01/16/19 23:30 97.8 F 67 18 160/67 98 01/16/19 21:30 69 18 125/77 100 01/16/19 20:30 16 143/82 01/16/19 20:00 17 137/69 01/16/19 19:30 16 139/79 01/16/19 18:30 18 124/66 100 01/16/19 18:00 130/73 97 01/16/19 17:30 126/79 100 01/16/19 17:00 119/75 98 01/16/19 16:30 123/67 98 01/16/19 16:16 97.3 F L 65 18 123/67 100 Intake and Output 01/16/19 01/17/19 01/17/19 22:59 06:59 14:59 Intake Total 64.653 Output Total 400 700 Balance -400 -635.347 Intake: Intake, IV Titration 64.653 Amount Heparin Sod,Pork in 0.45% 64.653 NaCl 25,000 unit In 0.45 % NaCl 1 250ml.bag @ 12 UNITS/KG/HR 7.403 mls/hr IV .Q24H [facility] Rx#: [id number] Output: Urine 400 700 Straight 400 Other: Voiding Method Self-Catheterization Weight 61.689 kg 63.5 kg PHYSICAL EXAMINATION: GENERAL: 83-year-old female in no acute distress at the time of my examination HEENT: Head is atraumatic, normocephalic. Significant ecchymosis noted to the facial area primarily in the right orbital area. Pupils equal, round. Sclera anicteric. Conjunctiva are clear. Mucous membranes of the mouth are moist. Neck is supple. There is no elevated jugular venous pressure. No carotid bruit is heard. HEART EXAMINATION: Heart S1 and S2 with soft systolic murmur is heard CHEST EXAMINATION: Lungs are clear with mild diminished air entry to the bases. ABDOMEN: Soft, nontender. Bowel sounds are heard. No organomegaly noted. EXTREMITIES: 2+ peripheral pulses with no evidence of peripheral edema and no calf tenderness noted. PICC line in place to right arm antecubital area NEUROLOGIC patient is awake, alert and oriented 3 . . Results 01/16/19 17:57 01/16/19 16:20 Cardiac Enzymes 01/16/19 01/16/19 01/16/19 Range/Units 16:20 16:20 22:32 AST 34 (14-36) U/L Troponin I 0.048 H* 0.041 H* (0.000-0.034) ng/mL 01/17/19 Range/Units 03:38 AST (14-36) U/L Troponin I 0.053 H* (0.000-0.034) ng/mL Coagulation 01/16/19 01/17/19 Range/Units 16:20 02:05 PT 10.7 (9.0-12.0) sec APTT 101.6 H* (22.0-30.0) sec Lipids 01/16/19 Range/Units 16:20 Triglycerides 165 H (<150) mg/dL Cholesterol 154 (<200) mg/dL HDL Cholesterol 41 (40-60) mg/dL CBC 01/16/19 Range/Units 17:57 WBC 7.4 (3.8-10.6) k/uL RBC 3.91 (3.80-5.40) m/uL Hgb 11.7 (11.4-16.0) gm/dL Hct 37.0 (34.0-46.0) % Plt Count 264 (150-450) k/uL Comprehensive Metabolic Panel 01/16/19 Range/Units 16:20 Sodium 137 (137-145) mmol/L Potassium 4.9 (3.5-5.1) mmol/L Chloride 104 (98-107) mmol/L Carbon Dioxide 24 (22-30) mmol/L BUN 31 H (7-17) mg/dL Creatinine 1.04 (0.52-1.04) mg/dL Glucose 105 H (74-99) mg/dL Calcium 10.1 (8.4-10.2) mg/dL AST 34 (14-36) U/L ALT 20 (9-52) U/L Alkaline Phosphatase 103 (38-126) U/L Total Protein 6.8 (6.3-8.2) g/dL Albumin 4.0 (3.5-5.0) g/dL Current Medications Generic Name Dose Route Start Last Admin Trade Name Freq PRN Reason Stop Dose Admin Acetaminophen 650 mg 01/17/19 00:16 01/17/19 00:19 Tylenol Tab PO 650 mg Q4HR PRN Administration Fever and/ or Pain Aspirin 325 mg 01/17/19 09:00 01/17/19 08:11 Aspirin PO 325 mg DAILY DANA Administration Atenolol 100 mg 01/17/19 09:00 01/17/19 08:11 Tenormin PO 100 mg DAILY@0900 DANA Administration Furosemide 20 mg 01/17/19 06:00 01/17/19 06:24 Lasix PO 20 mg DAILY@0600 DANA Administration Heparin Sodium (Porcine) 0 unit 01/16/19 20:04 Heparin IV PER PROTOCOL PRN Low PTT Protocol Heparin Sodium/Sodium Chloride 250 mls @ 7.403 mls/hr 01/16/19 20:15 01/17/19 05:36 25,000 unit/ Sodium Chloride IV 7.13 units/kg/hr .Q24H DANA 4.4 mls/hr Titration Protocol 12 UNITS/KG/HR Nitroglycerin 0.4 mg 01/16/19 20:55 Nitrostat SUBLINGUAL Q5M PRN Chest Pain Intake and Output 01/16/19 01/17/19 01/17/19 22:59 06:59 14:59 Intake Total 64.653 Output Total 400 700 Balance -400 -635.347 Intake: Intake, IV Titration 64.653 Amount Heparin Sod,Pork in 0.45% 64.653 NaCl 25,000 unit In 0.45 % NaCl 1 250ml.bag @ 12 UNITS/KG/HR 7.403 mls/hr IV .Q24H [facility] Rx#: [id number] Output: Urine 400 700 Straight 400 Other: Voiding Method Self-Catheterization Weight 61.689 kg 63.5 kg 01/16/19 17:57 01/16/19 16:20 EKG Interpretations (text) EKG shows normal sinus rhythm with first-degree AV block and nonspecific ST-T wave changes Assessment and Plan Plan: Assessment and plan #1 symptoms of generalized weakness and malaise, with evidence of abnormality in troponin, 0.048, 0.041, 0.053. No significant rise and fall pattern noted. EKG shows normal sinus rhythm with nonspecific ST-T wave changes. #2 hypertension #3 hyperlipidemia #4 chronic UTIs, PICC line in place for IV antibiotics #5 hypothyroidism, recently diagnosed Plan Troponin trend does not appear to have a significant rise and fall pattern, however cannot completely rule out underlying coronary artery disease in this 83-year-old female. Her troponins in the past have been normal. We will obtain an echocardiogram with Doppler study. Continue IV heparin at this time along with aspirin which we will decrease to 81 mg daily. It is recommended, the rory ent is willing to undergo any procedures to rule out coronary artery disease. Further recommendations to follow. DNP note has been reviewed, I agree with a documented findings and plan of care. Patient was seen and examined.
[2019-01-17] MEDS ORDERED: hydrALAZINE HCL 25 MG TAB PO PRN (12:09)
[2019-01-17] MEDS ORDERED: LORATADINE 10 MG TAB PO PRN (12:09)
--- NOTE | 2019-01-17 12:50 | P.HPIM ---
History of Present Illness H&P Date: 01/17/19 This is an 83-year-old female patient of Dr. Harris long-term resident at [facility] with history of hypertension, hyperlipidemia, lower extremity paraplegia non-ambulatory, neurogenic bladder, recent treatment for Proteus urinary tract infection [id number] with midline and IV antibiotics with Invanz 1 gm daily for 10 days, completed on 01/15. The patient has been on a bladder training regime at the alf but she does require 3 person assist to a commode chair. It appears that she has had other falls prior to this. On January 13, patient came into [facility] emergency center after a fall out of her wheelchair hitting her face on the ground and complaining of headache. CAT scan of the brain showed no acute hemorrhage hydrocephalus or mass effect. CT of the cervical spine showed no acute fracture or subluxation. She sustained a 4 cm facial laceration of the right brow which was sutured and patient was discharged back to [facility]. Suture removal is to occur in 7-10 days. Patient now presents to [facility] due to mental status changes and generalized weakness and malaise. No chest pain. No shortness of breath. Chest x-ray did not show any acute findings. CAT scan of the brain did not reveal any acute findings. No acute fracture of the pelvic area. EKG was a sinus rhythm with nonspecific ST-T wave changes. Repeat EKG this morning is a sinus rhythm with a first-degree AV block and nonspecific changes. Blood pressure 148/60 with a hear t rate in the 70s, 98% on room air. White blood cell count 7.4, hemoglobin 11.7, platelet count 264. Sodium 137, potassium 4.9, BUN 31 and creatinine 1.0. BNP level 1120. Troponin is 0.048, 0.041, 0.053. Urine shows moderate amount of leukocyte Estrace. At the time of my examination this morning, patient has no complaints other than she just feels mildly weak. The patient was admitted to the cardiac stepdown unit and cardiology consult requested. Patient is currently on a heparin drip. Review of Systems Constitutional: Reports fatigue, Reports lethargy, Reports malaise, Denies anorexia, Denies chills, Denies fever, Denies poor appetite, Denies weight loss Ears, nose, mouth and throat: Denies dysphagia, Denies nasal congestion, Denies nasal discharge, Denies vertigo Cardiovascular: Denies chest pain, Denies decreased exercise tolerance, Denies dyspnea on exertion, Denies edema, Denies leg edema, Denies lightheadedness, Denies syncope Respiratory: Denies cough, Denies cough with sputum, Denies dyspnea, Denies excessive sputum, Denies hemoptysis, Denies home oxygen, Denies snoring Gastrointestinal: Denies abdominal pain, Denies constipation, Denies diarrhea, Denies loss of appetite, Denies nausea, Denies vomiting Genitourinary: Denies dysuria, Denies urgency, Denies urinary frequency Musculoskeletal: Reports frequent falls, Reports gait dysfunction, Reports muscle weakness, Denies myalgias Integumentary: Reports darkening of skin, Denies pruritus, Denies rash Neurological: Reports change in mentation, Reports confusion, Reports gait dysfunction, Denies change in speech, Denies seizures Psychiatric: Denies anxiety, Denies depression Endocrine: Denies fatigue, Denies weight change Past Medical History Past Medical History: CVA/TIA, GERD/Reflux, Hyperlipidemia, Hypertension, Osteoarthritis (OA) Additional Past Medical History / Comment(s): uti, leg atrophy, past blood clot after back sx. self caths for over 40 years,RECENT FALL @ [facility], SUTURES TO R FOREHEAD AND STERI STRIPS TO LEFT FOREARM. History of Any Multi-Drug Resistant Organisms: ESBL, MRSA Date of last positivie culture/infection: ESBL 12/18/18 MRSA 03/14/18 MDRO Source:: MRSA / ESBL URINE Past Surgical History: Appendectomy, Back Surgery, Tonsillectomy Additional Past Surgical History / Comment(s): cervical spine sx, cataracts-lens implants Past Anesthesia/Blood Transfusion Reactions: Postoperative Nausea & Vomiting (PONV) Additional Past Anesthesia/Blood Transfusion Reaction / Comment(s): past blood transfusion-no reaction Past Psychological History: Depression Additional Psychological History / Comment(s): PT CURRENTLY LIVES AT [facility] ON THE [place]. Smoking Status: Never smoker Past Alcohol Use History: Occasional Past Drug Use History: None Reported - Past Family History Mother History Unknown: Yes Additional Family Medical History / Comment(s): mom in her sleep, unk cause Father Family Medical History: Myocardial Infarction ([place]) Medications and Allergies Home Medications Medication Instructions Recorded Confirmed Type Ranitidine HCl [Zantac] 150 mg PO BID@0600,2100 08/23/17 01/16/19 History Acetaminophen Tab [Tylenol Tab] 650 mg PO Q6H PRN 01/16/19 01/16/19 History Aspirin EC [Ecotrin] 325 mg PO DAILY@0901/16/19 01/16/19 History Atenolol 100 mg PO DAILY@0901/16/19 01/16/19 History Bethanechol Chloride 25 mg PO TID@1000,1300,1800 01/16/19 01/16/19 History Calcium Carbonate/Vitamin D3 1 tab PO BID@0900,1700 01/16/19 01/16/19 History [Calcium 600-Vit D3 400 Caplet] Celecoxib [CeleBREX] 200 mg PO DAILY@0901/16/19 01/16/19 History Ferrous Sulfate [Feosol] 325 mg PO DAILY@0601/16/19 01/16/19 History Fexofenadine HCl 60 mg PO DAILY@0901/16/19 01/16/19 History Furosemide [Lasix] 20 mg PO DAILY@59901/16/19 01/16/19 History Gabapentin [Neurontin] 200 mg PO TID@0600,1300,2100 01/16/19 01/16/19 History Levothyroxine Sodium [Synthroid] 75 mcg PO DAILY@59901/16/19 01/16/19 History Lovastatin [Altoprev] 40 mg PO HS@209901/16/19 01/16/19 History Multivitamins, Thera [Multivitamin 1 tab PO DAILY@0901/16/19 01/16/19 History (formulary)] Potassium Chloride ER [K-Dur 20] 20 meq PO BID@0900,1700 01/16/19 01/16/19 History Sertraline [Zoloft] 50 mg PO DAILY@0901/16/19 01/16/19 History guaiFENesin-DM 100-10MG/5ML 10 ml PO Q4H PRN 01/16/19 01/16/19 History [Robitussin DM] hydrALAZINE HCL [Apresoline] 25 mg PO DAILY PRN 01/16/19 01/16/19 History Allergies Allergy/AdvReac Type Severity Reaction Status Date / Time ciprofloxacin [From Cipro] Allergy Unknown Verified 01/16/19 16:40 codeine Allergy Unknown Verified 01/16/19 16:40 morphine Allergy Unknown Verified 01/16/19 16:40 Penicillins Allergy Rash/Hives Verified 01/16/19 16:40 shellfish derived [Shellfish] Allergy Unknown Verified 01/16/19 16:40 strawberry Allergy Unknown Verified 01/16/19 16:40 Sulfa (Sulfonamide Allergy Rash/Hives Verified 01/16/19 16:40 Antibiotics) Physical Exam Vitals: Vital Signs Temp Pulse Pulse Resp BP BP Pulse Ox 01/17/19 07:45 98.0 F 70 20 149/67 98 01/17/19 03:08 97.5 F L 65 24 136/81 92 L 01/17/19 00:00 64 18 01/16/19 23:30 97.8 F 67 18 160/67 98 01/16/19 21:30 69 18 125/77 100 01/16/19 20:30 16 143/82 01/16/19 20:00 17 137/69 01/16/19 19:30 16 139/79 01/16/19 18:30 18 124/66 100 01/16/19 18:00 130/73 97 01/16/19 17:30 126/79 100 01/16/19 17:00 119/75 98 01/16/19 16:30 123/67 98 01/16/19 16:16 97.3 F L 65 18 123/67 100 Intake and Output 01/16/19 01/17/19 01/17/19 22:59 06:59 14:59 Intake Total 64.653 257.5 Output Total 400 700 Balance -400 -635.347 257.5 Intake: Intake, IV Titration 64.653 27.5 Amount Heparin Sod,Pork in 0.45% 64.653 27.5 NaCl 25,000 unit In 0.45 % NaCl 1 250ml.bag @ 12 UNITS/KG/HR 7.403 mls/hr IV .Q24H [facility] Rx#: [id number] Oral 230 Output: Urine 400 700 Straight 400 Other: Voiding Method Self-Catheterization Weight 61.689 kg 63.5 kg Gen: This is an 83-year-old female. She is resting in bed and appears to be comfortable and in no acute distress. HEENT: Significant ecchymosis to the right orbital area including the nasal bridge and scientology regions, normocephalic. Pupils equal, round. Sclerae is anicteric. NECK: Supple. No JVD. No lymphadenopathy. No thyromegaly. LUNGS: Clear to auscultation. No wheezes or rhonchi. No intercostal retraction s. HEART: Regular rate and rhythm. Systolic murmur. ABDOMEN: Soft. Bowel sounds are present. No masses. No tenderness. EXTREMITIES: No pedal edema. No calf tenderness. Dorsalis pedis +2 bilateral ly. Midline to the right arm. NEUROLOGICAL: Patient is awake, alert and oriented x3. Cranial nerves 2 through 12 are grossly intact. Results CBC & Chem 7: 01/18/19 05:53 01/18/19 05:53 Labs: Abnormal Lab Results - Last 24 Hours (Table) 01/16/19 01/16/19 01/16/19 Range/Units 16:20 16:20 16:20 Lymphocytes # (1.0-4.8) k/uL APTT (22.0-30.0) sec BUN 31 H (7-17) mg/dL Glucose 105 H (74-99) mg/dL Troponin I 0.048 H* (0.000-0.034) ng/mL Triglycerides 165 H (<150) mg/dL Ur Leukocyte Esterase (Negative) Urine WBC (0-5) /hpf Urine Bacteria (None) /hpf Urine Mucus (None) /hpf 01/16/19 01/16/19 01/16/19 Range/Units 17:57 18:30 22:32 Lymphocytes # 0.9 L (1.0-4.8) k/uL APTT (22.0-30.0) sec BUN (7-17) mg/dL Glucose (74-99) mg/dL Troponin I 0.041 H* (0.000-0.034) ng/mL Triglycerides (<150) mg/dL Ur Leukocyte Esterase Moderate H (Negative) Urine WBC 8 H (0-5) /hpf Urine Bacteria Rare H (None) /hpf Urine Mucus Rare H (None) /hpf 01/17/19 01/17/19 01/17/19 Range/Units 02:05 03:38 10:44 Lymphocytes # (1.0-4.8) k/uL APTT 101.6 H* 30.4 H (22.0-30.0) sec BUN (7-17) mg/dL Glucose (74-99) mg/dL Troponin I 0.053 H* (0.000-0.034) ng/mL Triglycerides (<150) mg/dL Ur Leukocyte Esterase (Negative) Urine WBC (0-5) /hpf Urine Bacteria (None) /hpf Urine Mucus (None) /hpf Microbiology - Last 24 Hours (Table) 01/16/19 18:30 Urine Culture - Preliminary Urine,Catheterized Thrombosis Risk Factor Assmnt - DVT/VTE Prophylaxis DVT/VTE Prophylaxis: Pharmacologic Prophylaxis ordered - Choose All That Apply Each Risk Factor Represents 3 Points: Age 75 years or older Each Risk Factor Represents 5 Points: Acute spinal cord injury (paralysis) (< 1 month) Thrombosis Risk Factor Assessment Total Risk Factor Score: 8 Thrombosis Risk Factor Assessment Level: High Risk Assessment and Plan Plan: 1. Non-ST elevated myocardial infarction, no complaints of chest pain. Patient is on a heparin drip. Cardiology consult appreciated. Echocardiogram ordered. 2. Metabolic encephalopathy with change in baseline mental status possibly related to recent UTI or recent head trauma. 3. Closed head injury with laceration to the right orbit with negative CAT scan of the head and cervical spine. Sutures are to be removed in 7-10 days from January 13. 4. Recent treatment for Proteus multidrug resistant UTI. Patient has midline in place to the right arm. 5. Hypertension. Continue atenolol 100 mg daily, Lasix 20 mg daily, hydralazine 25 mg daily as needed for systolic blood pressure greater than 160. 6. Neurogenic bladder with urinary retention. Continue bethanechol 0.5 mg 3 times daily. Patient has been straight cathed times one. She may need to have Rodriguez catheter placed. 7. Lower extremity paraplegia, patient is normally bed bound/wheelchair bound and requires three-person assist. Continue gabapentin 200 mg 3 times daily 8. Gastroesophageal reflux disease and GI prophylaxis. Continue Pepcid. 9. Hypothyroidism. Continue levothyroxine 75 g daily. 10. Recurrent depression. Continue Zoloft 50 mg daily. 11. DVT prophylaxis. Patient on heparin drip. CODE STATUS: Full code, advanced directive papers on chart. Patient will be admitted to the hospital for a minimum of 2 night stay. Discharge plan: Return to [facility]. PT and OT evaluations. Impression and plan of care have been directed as dictated by the signing physician. Monika Saldivar nurse practitioner acting as scribe for signing physician.
--- NOTE | 2019-01-17 13:21 | ECHOF ---
Referral Reason:assess lvf MEASUREMENTS -------- HEIGHT: 170.2 cm WEIGHT: 63.0 kg BP: 149/67 IVSd: 1.5 cm (0.6 - 1.1) Z0 IVSd: 0.783 Z IVSd: 3.112 LVIDd: 4.6 cm (3.9 - 5.3) EDV(Teich): 96 ml Z0 LVIDd: 4.793 Z LVIDd: -0.461 LVPWd: 1.3 cm (0.6 - 1.1) Z0 LVPWd: 0.725 zLVPWd: 2.923 LVIDs: 2.8 cm ESV(Teich): 30 ml EF(Teich): 69 % %FS: 38 % Z0 LVIDs: 2.967 Z LVIDs: -0.386 Ao Diam: 4.0 cm (2.0 - 3.7) AV Cusp: 1.8 cm (1.5 - 2.6) D-E Excursion: 1.1 cm E-F Pima: 0.07 m/s FINDINGS -------- Sinus rhythm. This was a technically adequate study. The left ventricular size is normal. There is moderate concentric left ventricular hypertrophy. O verall left ventricular systolic function is normal with, an EF between 55 - 60 %. Sigmoid shaped s eptum with focal hypertrophy of the basal septum. The remaining wall thickness is normal. The right ventricle is normal in size. The left atrial size is normal. The right atrial size is normal. There is mild aortic valve sclerosis. There is mild aortic regurgitation. There is no evidence of aortic stenosis. Moderate mitral annular calcification present. Mild mitral regurgitation is present. Mild tricuspid regurgitation present. Trace/mild (physiologic) pulmonic regurgitation. There is no pericardial effusion. CONCLUSIONS -------- 1. Sinus rhythm. 2. This was a technically adequate study. 3. There is moderate concentric left ventricular hypertrophy. 4. Overall left ventricular systolic function is normal with, an EF between 55 - 60 %. 5. The left atrial size is normal. 6. There is mild aortic valve sclerosis. 7. There is mild aortic regurgitation. 8. Moderate mitral annular calcification present. 9. Mild mitral regurgitation is present. 10. Mild tricuspid regurgitation present. 11. Trace/mild (physiologic) pulmonic regurgitation. 12. There is no pericardial effusion. ZOO VETERINARIAN: Emiliano Winter RDCS T
[2019-01-17] MEDS: POTASSIUM CHLORIDE ER 20 MEQ TAB.ER PO SCH (14:52)
[2019-01-17] MEDS: CALCIUM CARB-VIT D 500MG-200UN 1 EACH TAB PO SCH (14:52)
[2019-01-17] MEDS: BETHANECHOL 25 MG TAB PO SCH ×2 (14:52→17:38)
[2019-01-17] MEDS: GABAPENTIN 100 MG CAP PO SCH ×2 (14:52→20:19)
--- NOTE | 2019-01-17 16:37 | P.GSCN ---
History of Present Illness Consult date: 01/17/19 Reason for Consult: Urinary retention and inability to insert Rodriguez catheter History of present illness: Patient is an 83-year-old female admitted on 01/16 for evaluation of a change in mentation. There was initially some concern that she may have suffered a myocardial infarction but her troponins have been within the normal range. The patient has a history of incomplete bladder emptying and was noted to have over 500 mL when bladder scanned this afternoon. Multiple attempts were made to insert a Rodriguez catheter and this proved unsuccessful. I was asked to see the patient for further evaluation. The patient has a history of chronic urinary retention and was last seen by me in 2013. At that time she was managed with self-catheterization and she did this up until approximately 1 year ago when she began having difficulty holding the catheter. Since then she has been cared for at the [facility]. She is bladder scanned at night and if she has less then 300 mL a catheter was not inserted but if there is more than 300 mL she is in and out cathed. There have been times when they have been unable to insert a catheter but the majority of the time this is not difficult. When the patient came through the emergency room yesterday evening she was in and out cathed for 400 mL. The patient has a history of recurrent urinary tract infections associated with catheterization. She was last treated with IV antibiotics due to a Proteus mirabilis urinary tract infection and the antibiotics were finished on 01/15. She's had no gross hematuria. She denies any suprapubic pain at the present time. Review of Systems - Constitutional Reports lethargy, Denies chills, Denies fever - Gastrointestinal Denies abdominal pain, Denies constipation - Genitourinary Genitourinary: Reports as per HPI Past Medical History Past Medical History: CVA/TIA, GERD/Reflux, Hyperlipidemia, Hypertension, Osteoarthritis (OA) Additional Past Medical History / Comment(s): uti, leg atrophy, past blood clot after back sx. self caths for over 40 years,RECENT FALL @ [facility], SUTURES TO R FOREHEAD AND STERI STRIPS TO LEFT FOREARM. History of Any Multi-Drug Resistant Organisms: ESBL, MRSA Year Discovered:: ESBL 12/18/18 MRSA 03/14/18 MDRO Source:: MRSA / ESBL URINE Past Surgical History: Appendectomy, Back Surgery, Tonsillectomy Additional Past Surgical History / Comment(s): cervical spine sx, cataracts-lens implants Past Anesthesia/Blood Transfusion Reactions: Postoperative Nausea & Vomiting (PONV) Additional Past Anesthesia/Blood Transfusion Reaction / Comm: past blood transf usion-no reaction Past Psychological History: Depression Additional Psychological History / Comment(s): PT CURRENTLY LIVES AT [facility]. Smoking Status: Never smoker Past Alcohol Use History: Occasional Past Drug Use History: None Reported - Past Family History Mother History Unknown: Yes Additional Family Medical History / Comment(s): mom in her sleep, unk cause Father Family Medical History: Myocardial Infarction ([place]) Medications and Allergies Home Medications Medication Instructions Recorded Confirmed Type Ranitidine HCl [Zantac] 150 mg PO BID@0600,2100 08/23/17 01/16/19 History Acetaminophen Tab [Tylenol Tab] 650 mg PO Q6H PRN 01/16/19 01/16/19 History Aspirin EC [Ecotrin] 325 mg PO DAILY@89901/16/19 01/16/19 History Atenolol 100 mg PO DAILY@89901/16/19 01/16/19 History Bethanechol Chloride 25 mg PO TID@1000,1300,1800 01/16/19 01/16/19 History Calcium Carbonate/Vitamin D3 1 tab PO BID@0900,1700 01/16/19 01/16/19 History [Calcium 600-Vit D3 400 Caplet] Celecoxib [CeleBREX] 200 mg PO DAILY@89901/16/19 01/16/19 History Ferrous Sulfate [Feosol] 325 mg PO DAILY@59901/16/19 01/16/19 History Fexofenadine HCl 60 mg PO DAILY@89901/16/19 01/16/19 History Furosemide [Lasix] 20 mg PO DAILY@59901/16/19 01/16/19 History Gabapentin [Neurontin] 200 mg PO TID@0600,1300,2100 01/16/19 01/16/19 History Levothyroxine Sodium [Synthroid] 75 mcg PO DAILY@59901/16/19 01/16/19 History Lovastatin [Altoprev] 40 mg PO HS@209901/16/19 01/16/19 History Multivitamins, Thera [Multivitamin 1 tab PO DAILY@0900 01/16/19 01/16/19 History (formulary)] Potassium Chloride ER [K-Dur 20] 20 meq PO BID@0900,1700 01/16/19 01/16/19 History Sertraline [Zoloft] 50 mg PO DAILY@0900 01/16/19 01/16/19 History guaiFENesin-DM 100-10MG/5ML 10 ml PO Q4H PRN 01/16/19 01/16/19 History [Robitussin DM] hydrALAZINE HCL [Apresoline] 25 mg PO DAILY PRN 01/16/19 01/16/19 History Allergies Allergy/AdvReac Type Severity Reaction Status Date / Time ciprofloxacin [From Cipro] Allergy Unknown Verified 01/16/19 16:40 codeine Allergy Unknown Verified 01/16/19 16:40 morphine Allergy Unknown Verified 01/16/19 16:40 Penicillins Allergy Rash/Hives Verified 01/16/19 16:40 shellfish derived [Shellfish] Allergy Unknown Verified 01/16/19 16:40 strawberry Allergy Unknown Verified 01/16/19 16:40 Sulfa (Sulfonamide Allergy Rash/Hives Verified 01/16/19 16:40 Antibiotics) Surgical - Exam Vital Signs Temp Pulse Resp BP Pulse Ox 97.3 F L 65 18 123/67 100 01/16/19 16:16 01/16/19 16:16 01/16/19 16:16 01/16/19 16:16 01/16/19 16:16 - General well developed, well nourished, no distress - Abdomen Abdomen: soft, non tender - Genitourinary normal external genitalia, other (Urethral meatus was not visible but could be palpated.) Results - Labs 01/16/19 17:57 01/16/19 16:20 Abnormal Lab Results - Last 24 Hours (Table) 01/16/19 01/16/19 01/16/19 Range/Units 16:20 16:20 16:20 Lymphocytes # (1.0-4.8) k/uL APTT (22.0-30.0) sec BUN 31 H (7-17) mg/dL Glucose 105 H (74-99) mg/dL Troponin I 0.048 H* (0.000-0.034) ng/mL Triglycerides 165 H (<150) mg/dL Ur Leukocyte Esterase (Negative) Urine WBC (0-5) /hpf Urine Bacteria (None) /hpf Urine Mucus (None) /hpf 01/16/19 01/16/19 01/16/19 Range/Units 17:57 18:30 22:32 Lymphocytes # 0.9 L (1.0-4.8) k/uL APTT (22.0-30.0) sec BUN (7-17) mg/dL Glucose (74-99) mg/dL Troponin I 0.041 H* (0.000-0.034) ng/mL Triglycerides (<150) mg/dL Ur Leukocyte Esterase Moderate H (Negative) Urine WBC 8 H (0-5) /hpf Urine Bacteria Rare H (None) /hpf Urine Mucus Rare H (None) /hpf 01/17/19 01/17/19 01/17/19 Range/Units 02:05 03:38 10:44 Lymphocytes # (1.0-4.8) k/uL APTT 101.6 H* 30.4 H (22.0-30.0) sec BUN (7-17) mg/dL Glucose (74-99) mg/dL Troponin I 0.053 H* (0.000-0.034) ng/mL Triglycerides (<150) mg/dL Ur Leukocyte Esterase (Negative) Urine WBC (0-5) /hpf Urine Bacteria (None) /hpf Urine Mucus (None) /hpf Microbiology - Last 24 Hours (Table) 01/16/19 18:30 Urine Culture - Preliminary Urine,Catheterized Diabetes panel 01/16/19 01/16/19 Range/Units 16:20 16:20 Sodium 137 (137-145) mmol/L Potassium 4.9 (3.5-5.1) mmol/L Chloride 104 (98-107) mmol/L Carbon Dioxide 24 (22-30) mmol/L BUN 31 H (7-17) mg/dL Creatinine 1.04 (0.52-1.04) mg/dL Glucose 105 H (74-99) mg/dL Calcium 10.1 (8.4-10.2) mg/dL AST 34 (14-36) U/L ALT 20 (9-52) U/L Alkaline Phosphatase 103 (38-126) U/L Total Protein 6.8 (6.3-8.2) g/dL Albumin 4.0 (3.5-5.0) g/dL Triglycerides 165 H (<150) mg/dL HDL Cholesterol 41 (40-60) mg/dL Calcium panel 01/16/19 Range/Units 16:20 Calcium 10.1 (8.4-10.2) mg/dL Albumin 4.0 (3.5-5.0) g/dL Pituitary panel 01/16/19 Range/Units 16:20 Sodium 137 (137-145) mmol/L Potassium 4.9 (3.5-5.1) mmol/L Chloride 104 (98-107) mmol/L Carbon Dioxide 24 (22-30) mmol/L BUN 31 H (7-17) mg/dL Creatinine 1.04 (0.52-1.04) mg/dL Glucose 105 H (74-99) mg/dL Calcium 10.1 (8.4-10.2) mg/dL Adrenal panel 01/16/19 Range/Units 16:20 Sodium 137 (137-145) mmol/L Potassium 4.9 (3.5-5.1) mmol/L Chloride 104 (98-107) mmol/L Carbon Dioxide 24 (22-30) mmol/L BUN 31 H (7-17) mg/dL Creatinine 1.04 (0.52-1.04) mg/dL Glucose 105 H (74-99) mg/dL Calcium 10.1 (8.4-10.2) mg/dL Total Bilirubin 0.2 (0.2-1.3) mg/dL AST 34 (14-36) U/L ALT 20 (9-52) U/L Alkaline Phosphatase 103 (38-126) U/L Total Protein 6.8 (6.3-8.2) g/dL Albumin 4.0 (3.5-5.0) g/dL Assessment and Plan Assessment: The patient has a history of chronic urinary retention which is most likely related to a hypotonic bladder. I was able to successfully insert a 16-Georgian Rodriguez catheter which drained approximately 1000 mL of urine which was initially clear. The urinalysis obtained through the emergency room did not suggest a urinary tract infection at the present time. There is no easy option for the patient's chronic urinary retention. An indwelling catheter is more likely to result in recurrent urinary tract in fections then catheterization once each night and so it would be preferable to remove the Rodriguez catheter prior to discharging the patient. Recent studies have not shown any benefit of bethanechol as far as improving bladder emptying.
[2019-01-17] MEDS: FAMOTIDINE 20 MG TAB PO SCH (20:19)
[2019-01-17] MEDS: HEPARIN SOD,PORK IN 0.45% NACL 25,000 UNIT in 0.45% NACL 1 250ML.BAG IV SCH (20:22)
[2019-01-17] MEDS ORDERED: ATORVASTATIN 10 MG TAB PO SCH (21:00)
[2019-01-18] MEDS: GABAPENTIN 100 MG CAP PO SCH (05:19)
[2019-01-18] MEDS: FUROSEMIDE 20 MG TAB PO SCH (05:20)
[2019-01-18] MEDS: FAMOTIDINE 20 MG TAB PO SCH (05:20)
[2019-01-18] MEDS: HEPARIN SOD,PORK IN 0.45% NACL 25,000 UNIT in 0.45% NACL 1 250ML.BAG IV SCH (05:47)
[2019-01-18] MEDS ORDERED: FERROUS SULFATE 325 MG TAB PO SCH (06:00)
[2019-01-18] MEDS ORDERED: LEVOTHYROXINE 75 MCG TAB PO SCH (06:00)
[2019-01-18 06:26] LABS: Basophils % (A) 0 %; Eosinophils # (A) 0.5 k/uL (0-0.7); Eosinophils % (A) 6 %; HCT 33.6 % (34.0-46.0); HGB 10.9 gm/dL (11.4-16.0); Lymphocytes # (A) 1.3 k/uL (1.0-4.8); Lymphocytes % (A) 14 %; MCH 31.5 pg (25.0-35.0); MCHC 32.6 g/dL (31.0-37.0); MCV 96.6 fL (80.0-100.0); Mean Platelet Volume 7.3; Monocytes # (A) 0.6 k/uL (0-1.0); Monocytes % (A) 6 %; Neutrophils # (A) 6.6 k/uL (1.3-7.7); Neutrophils % (A) 72 %; Platelet Count 255 k/uL (150-450); RBC 3.48 m/uL (3.80-5.40); RDW 14.4 % (11.5-15.5); WBC 9.2 k/uL (3.8-10.6)
[2019-01-18 06:57] LABS: African American GFR (CKD) >90 (>60 ml/min/1.73 sqM); Anion Gap 9 mmol/L; Blood Urea Nitrogen 22 mg/dL (7-17); Calcium 9.3 mg/dL (8.4-10.2); Carbon Dioxide 21 mmol/L (22-30); Chloride 103 mmol/L (98-107); Glucose 90 mg/dL (74-99); Sodium 133 mmol/L (137-145)
[2019-01-18 08:59] VITALS: TEMP 98.8
[2019-01-18] MEDS ORDERED: SERTRALINE 50 MG TAB PO SCH (09:00)
[2019-01-18] MEDS ORDERED: MULTIVITAMINS, THERA 1 EACH TAB PO SCH (09:00)
--- NOTE | 2019-01-18 09:13 | P.DS ---
Providers Date of admission: 01/16/19 20:55 Expected date of discharge: 01/18/19 Attending physician: Lynn Harris Consults: 01/16/19 20:55 Consult Physician Urgent Consulting Provider: Elver Oliver Consult Reason/Comments: nstemi Do you want consulting provider notified?: Yes 01/17/19 15:17 Consult Physician Stat Consulting Provider: Harley Lane Consult Reason/Comments: Patient needs Rodriguez PÉREZ Do you want consulting provider notified?: Yes Primary care physician: Lynn Harris [facility] Course: This is an 83-year-old female patient of Dr. Harris long-term resident at [facility] with history of hypertension, hyperlipidemia, lower extremity paraplegia non-ambulatory, neurogenic bladder, recent treatment for Proteus urinary tract infection [id number] with midline and IV antibiotics with Invanz 1 gm daily for 10 days, completed on 01/15. The patient has been on a bladder training regime at the halfway but she does require 3 person assist to a commode chair. It appears that she has had other falls prior to this. On January 13, patient came into [facility] emergency center after a fall out of her wheelchair hitting her face on the ground and complaining of headache. CAT scan of the brain showed no acute hemorrhage hydrocephalus or mass effect. CT of the cervical spine showed no acute fracture or subluxation. She sustained a 4 cm facial laceration of the right brow which was sutured and patient was discharged back to [facility]. Suture removal is to occur in 7-10 days. Patient now presents to [facility] due to mental status changes and generalized weakness and malaise. No chest pain. No shortness of breath. Chest x-ray did not show any acute findings. CAT scan of the brain did not reveal any acute findings. No acute fracture of the pelvic area. EKG was a sinus rhythm with nonspecific ST-T wave changes. Repeat EKG this morning is a sinus rhythm with a first-degree AV block and nonspecific changes. Blood pressure 148/60 with a heart rate in the 70s, 98% on room air. White blood cell count 7.4, hemoglobin 11.7, platelet count 264. Sodium 137, potassium 4.9, BUN 31 and creatinine 1.0. BNP level 1120. Troponin is 0.048, 0.041, 0.053. Urine shows moderate amount of leukocyte Estrace. At the time of my examination this morning, patient has no complaints other than she just feels mildly weak. The patient was admitted to the cardiac stepdown unit and cardiology consult requested. Patient is currently on a heparin drip. 01/18: Yesterday afternoon, patient had bladder scan with 530 post void and multiple nurses attempted to place Rodriguez catheter. A consult was placed with urology and Rodriguez catheter was placed. We will plan for her to follow-up with them as an outpatient. Dr. Ramon has recommended discontinuing the Rodriguez as she is more to have recurrent urinary tract infections. We will plan for this to be done at the halfway. He also notes that recent studies have not shown any benefit of bethanechol in improving bladder emptying which will be discontinued. Daughter is concerned the patient had increased confusion most likely due to hospital setting, closed head injury and etc. She also relates that patient is not sleeping at nighttime. Melatonin will be added. Urine cultures growing 100,000 colonies of group D enterococcus and patient will be seen placed on Ceftin. Cardiology has reevaluated the patient is morning and they do not have any plan for heart catheterization. We'll plan medical management. We have started the patient on Imdur. The patient will be discharged back to [facility] today. Discharge diagnoses: 1. Non-ST elevated myocardial infarction. 2. Metabolic encephalopathy with change in baseline mental status possibly related to recent UTI or recent head trauma, lack of sleep and change in environment. 3. Closed head injury with laceration to the right orbit with negative CAT scan of the head and cervical spine. Sutures are to be removed in 7-10 days from January 13. 4. Recent treatment for Proteus multidrug resistant UTI. Patient has midline in place to the right arm. 5. Hypertension. 6. Neurogenic bladder with urinary retention. 7. Lower extremity paraplegia, patient is normally bed bound/wheelchair bound and requires three-person assist. 8. Gastroesophageal reflux disease 9. Hypothyroidism. 10. Recurrent depression. Discharge plan: Return to [facility]. Impression and plan of care have been directed as dictated by the signing physician. Monika Saldivar nurse practitioner acting as scribe for signing physician. Patient Condition at Discharge: Good Plan - Discharge Summary New Discharge Prescriptions: New Cefuroxime [Ceftin] 250 mg PO BID #14 tablet Isosorbide Mononitrate ER [Imdur] 30 mg PO DAILY #30 tab Melatonin 6 mg PO HS tablet Continue Ranitidine HCl [Zantac] 150 mg PO BID@0600,2100 hydrALAZINE HCL [Apresoline] 25 mg PO DAILY PRN PRN Reason: SBP>160 guaiFENesin-DM 100-10MG/5ML [Robitussin DM] 10 ml PO Q4H PRN PRN Reason: Cough Acetaminophen Tab [Tylenol] 650 mg PO Q6H PRN PRN Reason: Pain Gabapentin [Neurontin] 200 mg PO TID@0600,1300,2100 Potassium Chloride ER [K-Dur 20] 20 meq PO BID@0900,1700 Calcium Carbonate/Vitamin D3 [Calcium 600-Vit D3 400 Caplet] 1 tab PO BID@0900,1700 Sertraline [Zoloft] 50 mg PO DAILY@0900 Multivitamins, Thera [Multivitamin (formulary)] 1 tab PO DAILY@0900 Lovastatin [Altoprev] 40 mg PO HS@2100 Levothyroxine Sodium [Synthroid] 75 mcg PO DAILY@0600 Furosemide [Lasix] 20 mg PO DAILY@0600 Fexofenadine HCl 60 mg PO DAILY@0900 Ferrous Sulfate [Iron (65 MG Elemental)] 325 mg PO DAILY@0600 Celecoxib [CeleBREX] 200 mg PO DAILY@0900 Atenolol 100 mg PO DAILY@0900 Aspirin EC [Ecotrin] 325 mg PO DAILY@0900 Discontinued Bethanechol Chloride 25 mg PO TID@1000,1300,1800 Discharge Medication List Ranitidine HCl [Zantac] 150 mg PO BID@0600,2100 08/23/17 [History] Acetaminophen Tab [Tylenol] 650 mg PO Q6H PRN 01/16/19 [History] Aspirin EC [Ecotrin] 325 mg PO DAILY@0900 01/16/19 [History] Atenolol 100 mg PO DAILY@0900 01/16/19 [History] Calcium Carbonate/Vitamin D3 [Calcium 600-Vit D3 400 Caplet] 1 tab PO BID@090 0,1700 01/16/19 [History] Celecoxib [CeleBREX] 200 mg PO DAILY@0900 01/16/19 [History] Ferrous Sulfate [Iron (65 MG Elemental)] 325 mg PO DAILY@0600 01/16/19 [History] Fexofenadine HCl 60 mg PO DAILY@0900 01/16/19 [History] Furosemide [Lasix] 20 mg PO DAILY@0601/16/19 [History] Gabapentin [Neurontin] 200 mg PO TID@0600,1300,2100 01/16/19 [History] Levothyroxine Sodium [Synthroid] 75 mcg PO DAILY@0601/16/19 [History] Lovastatin [Altoprev] 40 mg PO HS@209901/16/19 [History] Multivitamins, Thera [Multivitamin (formulary)] 1 tab PO DAILY@0901/16/19 [History] Potassium Chloride ER [K-Dur 20] 20 meq PO BID@0900,1700 01/16/19 [History] Sertraline [Zoloft] 50 mg PO DAILY@0901/16/19 [History] guaiFENesin-DM 100-10MG/5ML [Robitussin DM] 10 ml PO Q4H PRN 01/16/19 [History] hydrALAZINE HCL [Apresoline] 25 mg PO DAILY PRN 01/16/19 [History] Cefuroxime [Ceftin] 250 mg PO BID #14 tablet 01/18/19 [Rx] Isosorbide Mononitrate ER [Imdur] 30 mg PO DAILY #30 tab 01/18/19 [Rx] Melatonin 6 mg PO HS tablet 01/18/19 [Rx] Follow up Appointment(s)/Referral(s): Lynn Harris MD [Primary Care Provider] - 1 Week (at [facility]) Ash Ramon MD [STAFF PHYSICIAN] - 1 Week Discharge Disposition: TRANSFER TO SNF/ECF
[2019-01-18] MEDS: CALCIUM CARB-VIT D 500MG-200UN 1 EACH TAB PO SCH (09:24)
[2019-01-18] MEDS: ATENOLOL 50 MG TAB PO SCH (09:24)
[2019-01-18] MEDS: ASPIRIN 325 MG TAB PO SCH (09:24)
[2019-01-18] MEDS: POTASSIUM CHLORIDE ER 20 MEQ TAB.ER PO SCH (09:24)
[2019-01-18] MEDS: BETHANECHOL 25 MG TAB PO SCH (09:25)
[2019-01-18 12:12] VITALS: BP 109/65; PULSE 58
--- NOTE | 2019-01-18 12:46 | P.PN ---
Subjective Progress Note Date: 01/18/19 This is a pleasant 83-year-old female with history of hypertension, hyperlipidemia, who had a recent fall earlier this month, she incurred significant amount of ecchymosis around the right orbital area. Does have family history of coronary artery disease but herself has never had any cardiac issues in the past. She presents to the hospital on this occasion with symptoms of weakness and generalized malaise, she denies any chest discomfort, no nausea, she does state that approximately a week ago she was dealing with some diarrhea. Patient does have chronic UTIs for which she has been receiving IV antibiotics and since then in general has not been feeling well. Chest x-ray was performed on admission here which did not reveal any acute findings. CT of the brain was performed which did not reveal any acute changes. No acute fractures in the pelvis area. EKG shows a normal sinus rhythm with nonspecific ST-T wave changes. Repeat EKG this morning shows a normal sinus rhythm with first-degree AV block and nonspecific changes Blood pressure 148/60 with a heart rate in the 70s, 98% on room air. White blood cell count 7.4, hemoglobin 11.7, platelet count 264. Sodium 137, potassium 4.9, BUN 31 and creatinine 1.0. BNP level 1120. Troponin is 0.048, 0.041, 0.053. Urine shows moderate amount of leukocyte Estrace. At the time of my examination this morning, patient has no complaints other than she just feels mildly weak. 01/18/2019 Patient was seen and examined this morning, quite confused. According to the daughter throughout the night she became more and more confused. Able to use all of her extremities. Blood pressure 110/60 with a heart rate in the 50s to 60s, 97% on room air. White blood cell count 9.2, hemoglobin 10.9, platelet count 255. Sodium 133, potassium 4.0, BUN 22 and creatinine 0.5. Echocardiogram with Doppler study was performed which revealed an ejection fraction of 55-60%. Objective - Vital Signs Vital signs: Vital Signs Temp 98.8 F 01/18/19 08:00 Pulse 58 L 01/18/19 12:11 Resp 20 01/18/19 12:11 BP 109/65 01/18/19 12:11 Pulse Ox 97 01/18/19 12:11 Intake & Output 0601/18/19 01/18/19 18:59 06:59 18:59 Intake Total 482.076 780.816 Output Total 1231 1100 Balance -748.924 -319.184 Weight 62 kg Intake: Intake, IV Titration 72.076 80.816 Amount Heparin Sod,Pork in 0.45% 72.076 80.816 NaCl 25,000 unit In 0.45 % NaCl 1 250ml.bag @ 12 UNITS/KG/HR 7.403 mls/hr IV .Q24H [facility] Rx#: [id number] Oral 410 700 Output: Urine 700 1100 Straight 400 Post Void Residual 531 Other: Voiding Method Self-Catheterization Indwelling Catheter - Exam PHYSICAL EXAMINATION: GENERAL: 83-year-old female in no acute distress at the time of my examination HEENT: Head is atraumatic, normocephalic. Significant ecchymosis noted to the facial area primarily in the right orbital area. Pupils equal, round. Sclera anicteric. Conjunctiva are clear. Mucous membranes of the mouth are moist. Neck is supple. There is no elevated jugular venous pressure. No carotid bruit is heard. HEART EXAMINATION: Heart S1 and S2 with soft systolic murmur is heard CHEST EXAMINATION: Lungs are clear with mild diminished air entry to the bases. ABDOMEN: Soft, nontender. Bowel sounds are heard. No organomegaly noted. EXTREMITIES: 2+ peripheral pulses with no evidence of peripheral edema and no calf tenderness noted. PICC line in place to right arm antecubital area NEUROLOGIC patient is awake, alert and oriented X1 . - Labs CBC & Chem 7: 01/18/19 05:53 01/18/19 05:53 Labs: Abnormal Lab Results - Last 24 Hours (Table) 01/17/19 01/18/19 01/18/19 Range/Units 17:54 02:17 05:53 RBC 3.48 L (3.80-5.40) m/uL Hgb 10.9 L (11.4-16.0) gm/dL Hct 33.6 L (34.0-46.0) % APTT 40.2 H 59.2 H (22.0-30.0) sec Sodium (137-145) mmol/L Carbon Dioxide (22-30) mmol/L BUN (7-17) mg/dL 01/18/19 Range/Units 05:53 RBC (3.80-5.40) m/uL Hgb (11.4-16.0) gm/dL Hct (34.0-46.0) % APTT (22.0-30.0) sec Sodium 133 L (137-145) mmol/L Carbon Dioxide 21 L (22-30) mmol/L BUN 22 H (7-17) mg/dL Microbiology - Last 24 Hours (Table) 01/16/19 18:30 Urine Culture - Preliminary Urine,Catheterized Group D Enterococcus Assessment and Plan Plan: Assessment and plan #1 symptoms of generalized weakness and malaise, with evidence of abnormality in troponin, 0.048, 0.041, 0.053. No significant rise and fall pattern noted. EKG shows normal sinus rhythm with nonspecific ST-T wave changes. #2 hypertension #3 hyperlipidemia #4 chronic UTIs, PICC line in place for IV antibiotics #5 hypothyroidism, recently diagnosed Plan Echocardiogram with Doppler study revealed a normal left ventricular systolic function. From cardiology's perspective we recommend to continue this patient on current medications. She may be transferred back to the [facility] once cleared by her primary. DNP note has been reviewed, I agree with a documented findings and plan of care. Patient was seen and examined.
[2019-01-18] MEDS ORDERED: MELATONIN 3 MG TABLET PO SCH (21:00)
== END 2019-01-18 14:25 | DRG 280 ==
LOC: EC 16:14 → 3SCARD 20:55
PROVIDERS: ADMIT Family Medicine; ATTEND Family Medicine
DX: I21.4 Non-ST elevation (NSTEMI) myocardial infarction (principal); G93.41 Metabolic encephalopathy; G82.20 Paraplegia, unspecified; N39.0 Urinary tract infection, site not specified; F33.9 Major depressive disorder, recurrent, unspecified; N31.2 Flaccid neuropathic bladder, not elsewhere classified; I10 Essential (primary) hypertension; E78.5 Hyperlipidemia, unspecified; Z16.24 Resistance to multiple antibiotics; B96.4 Proteus (mirabilis) (morganii) as the cause of diseases classified elsewhere; W05.0XXA Fall from non-moving wheelchair, initial encounter; S09.90XA Unspecified injury of head, initial encounter; R53.1 Weakness; I44.0 Atrioventricular block, first degree; Z86.73 Personal history of transient ischemic attack (TIA), and cerebral infarction without residual deficits; K21.9 Gastro-esophageal reflux disease without esophagitis; M19.90 Unspecified osteoarthritis, unspecified site; Z96.1 Presence of intraocular lens; H26.9 Unspecified cataract; R11.2 Nausea with vomiting, unspecified; Z82.49 Family history of ischemic heart disease and other diseases of the circulatory system; Z79.82 Long term (current) use of aspirin; Z79.1 Long term (current) use of non-steroidal anti-inflammatories (NSAID); Z79.899 Other long term (current) drug therapy; Z79.890 Hormone replacement therapy; R33.8 Other retention of urine; Z99.3 Dependence on wheelchair; Z74.01 Bed confinement status; E03.9 Hypothyroidism, unspecified; Z87.440 Personal history of urinary (tract) infections; S01.111D Laceration without foreign body of right eyelid and periocular area, subsequent encounter
CPT/HCPCS: 36415; 51701; 70450; 71046; 72125; 72170; 80048; 80053; 80061; 81001; 82140; 83605; 83735; 83880; 84484; 85025; 85610; 85730; 87077; 87086; 87186; 93005; 93306; 96365; 96376; 99285

== ENCOUNTER 2019-03-28 00:42 | Emergency (ER) | payer MEDICARE, BC, OTHER ==
[2019-03-28] MEDS ORDERED: ACETAMINOPHEN TAB 325 MG TAB PO STA (01:10)
[2019-03-28] MEDS ORDERED: SODIUM CHLORIDE 0.9% 500 ML 500 ML IV ONE (01:10)
[2019-03-28 01:30] LABS: Basophils # (A) 0.1 k/uL (0-0.2); Basophils % (A) 1 %; Eosinophils # (A) 0.5 k/uL (0-0.7); Eosinophils % (A) 6 %; HCT 33.1 % (34.0-46.0); HGB 10.8 gm/dL (11.4-16.0); Lymphocytes % (A) 12 %; MCH 30.4 pg (25.0-35.0); MCHC 32.7 g/dL (31.0-37.0); MCV 92.9 fL (80.0-100.0); Mean Platelet Volume 7.3; Monocytes # (A) 0.6 k/uL (0-1.0); Monocytes % (A) 7 %; Neutrophils # (A) 5.7 k/uL (1.3-7.7); Neutrophils % (A) 72 %; Platelet Count 257 k/uL (150-450); RBC 3.56 m/uL (3.80-5.40); RDW 15.1 % (11.5-15.5)
[2019-03-28 01:39] LABS: INR 0.9 (<1.2); Partial Thromboplastin Time 26.7 sec (22.0-30.0); Prothrombin Time 9.9 sec (9.0-12.0)
[2019-03-28 02:02] LABS: ALT 40 U/L (9-52); AST 32 U/L (14-36); African American GFR (CKD) 81 (>60 ml/min/1.73 sqM); Albumin 3.7 g/dL (3.5-5.0); Alkaline Phosphatase 125 U/L (38-126); Anion Gap 9 mmol/L; Blood Urea Nitrogen 39 mg/dL (7-17); Calcium 9.8 mg/dL (8.4-10.2); Carbon Dioxide 26 mmol/L (22-30); Chloride 99 mmol/L (98-107); Glucose 93 mg/dL (74-99); Potassium 5.4 mmol/L (3.5-5.1); Sodium 134 mmol/L (137-145); Total Bilirubin <0.1 mg/dL (0.2-1.3); Total Protein 6.6 g/dL (6.3-8.2)
--- NOTE | 2019-03-28 02:06 | ED ---
Fall HPI - General Chief Complaint: Fall Stated Complaint: Fall,head injury Time Seen by Provider: 03/28/19 00:50 Source: EMS Mode of arrival: EMS - History of Present Illness Initial Comments: 83-year-old female patient presents to the emergency department today for evaluation after experiencing a fall. Patient states she is in her wheelchair going to the bathroom. Patient states she is unsure how it happened but she fell forward out of the wheelchair striking her head. She denies any loss of consciousness. States she is currently experiencing intermittent headache and right hip pain. States takes an adult aspirin daily. She denies any neck or back pain. Denies any abdominal pain, chest pain, nausea, or vomiting. Denies any numbness or tingling to her extremities. Daughter is present and states that patient has a problem maintaining her balance in the wheelchair when she leans forward. Patient denies any shortness of breath, dizziness, weakness, or difficulties with bowel movements or urination. She is currently receiving IV antibiotics through a PICC line to her left upper arm for urinary tract infection. - Related Data Home Medications Medication Instructions Recorded Confirmed Ranitidine HCl [Zantac] 150 mg PO BID@0600,2100 08/23/17 01/16/19 Acetaminophen Tab [Tylenol] 650 mg PO Q6H PRN 01/16/19 01/16/19 Aspirin EC [Ecotrin] 325 mg PO DAILY@89901/16/19 01/16/19 Atenolol 100 mg PO DAILY@89901/16/19 01/16/19 Calcium Carbonate/Vitamin D3 1 tab PO BID@0900,1700 01/16/19 01/16/19 [Calcium 600-Vit D3 400 Caplet] Celecoxib [CeleBREX] 200 mg PO DAILY@89901/16/19 01/16/19 Ferrous Sulfate [Iron (65 MG 325 mg PO DAILY@59901/16/19 01/16/19 Elemental)] Fexofenadine HCl 60 mg PO DAILY@89901/16/19 01/16/19 Furosemide [Lasix] 20 mg PO DAILY@59901/16/19 01/16/19 Gabapentin [Neurontin] 200 mg PO TID@0600,1300,2100 01/16/19 01/16/19 Levothyroxine Sodium [Synthroid] 75 mcg PO DAILY@0600 01/16/19 01/16/19 Lovastatin [Altoprev] 40 mg PO HS@2100 01/16/19 01/16/19 Multivitamins, Thera [Multivitamin 1 tab PO DAILY@0900 01/16/19 01/16/19 (formulary)] Potassium Chloride ER [K-Dur 20] 20 meq PO BID@0900,1700 01/16/19 01/16/19 Sertraline [Zoloft] 50 mg PO DAILY@0900 01/16/19 01/16/19 guaiFENesin-DM 100-10MG/5ML 10 ml PO Q4H PRN 01/16/19 01/16/19 [Robitussin DM] hydrALAZINE HCL [Apresoline] 25 mg PO DAILY PRN 01/16/19 01/16/19 Previous Rx's Medication Instructions Recorded Cefuroxime [Ceftin] 250 mg PO BID #14 tablet 01/18/19 Isosorbide Mononitrate ER [Imdur] 30 mg PO DAILY #30 tab 01/18/19 Melatonin 6 mg PO HS tablet 01/18/19 Allergies Allergy/AdvReac Type Severity Reaction Status Date / Time ciprofloxacin [From Cipro] Allergy Unknown Verified 03/28/19 00:47 codeine Allergy Unknown Verified 03/28/19 00:47 morphine Allergy Unknown Verified 03/28/19 00:47 Penicillins Allergy Rash/Hives Verified 03/28/19 00:47 shellfish derived [Shellfish] Allergy Unknown Verified 03/28/19 00:47 strawberry Allergy Unknown Verified 03/28/19 00:47 Sulfa (Sulfonamide Allergy Rash/Hives Verified 03/28/19 00:47 Antibiotics) Review of Systems ROS Statement: Those systems with pertinent positive or pertinent negative responses have been documented in the HPI. ROS Other: All systems not noted in ROS Statement are negative. Past Medical History Past Medical History: CVA/TIA, GERD/Reflux, Hyperlipidemia, Hypertension, Osteoarthritis (OA) Additional Past Medical History / Comment(s): uti, leg atrophy, past blood clot after back sx. self caths for over 40 years,RECENT FALL @ [facility], SUTURES TO R FOREHEAD AND STERI STRIPS TO LEFT FOREARM. History of Any Multi-Drug Resistant Organisms: ESBL, MRSA Date of last positivie culture/infection: ESBL 03/19/19 MRSA 03/14/18 MDRO Source:: MRSA / ESBL URINE Past Surgical History: Appendectomy, Back Surgery, Tonsillectomy Additional Past Surgical History / Comment(s): cervical spine sx, cataracts-lens implants Past Anesthesia/Blood Transfusion Reactions: Postoperative Nausea & Vomiting (PONV) Additional Past Anesthesia/Blood Transfusion Reaction / Comment(s): past blood transfusion-no reaction Past Psychological History: Depression Smoking Status: Never smoker Past Alcohol Use History: Occasional Past Drug Use History: None Reported - Past Family History Mother History Unknown: Yes Additional Family Medical History / Comment(s): mom in her sleep, unk cause Father Family Medical History: Myocardial Infarction ([place]) General Exam Limitations: physical limitation General appearance: alert, in no apparent distress, other (This is a well- developed, well-nourished elderly female patient in no acute distress. Vital signs upon presentation are temperature 97.9F, pulse 62, respirations 18, blood pressure 151/89, pulse ox 99% on room air.) Head exam: Present: other (Patient has hematoma noted to the central forehead, no bony step-off or deformity noted to palpation around the site) Eye exam: Present: normal appearance, PERRL, EOMI. Absent: scleral icterus, conjunctival injection, periorbital swelling ENT exam: Present: normal exam, normal oropharynx, mucous membranes moist Neck exam: Present: normal inspection, full ROM, other (Nontender, no step-off, no deformity to firm midline palpation of the posterior cervical spine. Full range of motion without pain or limitation.). Absent: tenderness, meningismus, lymphadenopathy Respiratory exam: Present: normal lung sounds bilaterally. Absent: respiratory distress, wheezes, rales, rhonchi, stridor Cardiovascular Exam: Present: regular rate, normal rhythm, normal heart sounds. Absent: systolic murmur, diastolic murmur, rubs, gallop, clicks GI/Abdominal exam: Present: soft, normal bowel sounds. Absent: distended, tenderness, guarding, rebound, rigid Extremities exam: Present: normal inspection, full ROM, normal capillary refill, other (Skin to the lower extremities is pink, warm, dry. Cap refills less than 3 seconds. Pedal and posttibial pulses 2+ and equal bilaterally.). Absent: tenderness, pedal edema, joint swelling, calf tenderness Back exam: Present: normal inspection, other (Nontender, no step-off, no deformity to firm midline palpation of the thoracic and lumbar vertebrae. Full range of motion without pain or limitation.). Absent: vertebral tenderness Neurological exam: Present: alert, oriented X3, CN II-XII intact Psychiatric exam: Present: normal affect, normal mood Skin exam: Present: warm, dry, intact, normal color. Absent: rash Course Vital Signs 03/28/19 03/28/19 00:43 02:05 Temperature 97.9 F Pulse Rate 62 61 Respiratory 18 18 Rate Blood Pressure 151/89 127/74 O2 Sat by Pulse 99 99 Oximetry Medical Decision Making - Medical Decision Making 83-year-old female patient presents to the emergency department today for evaluation of right hip pain and had injury after experiencing a fall at her long-term care facility. Physical examination did reveal a contusion to the center of the forehead. Patient also exhibited right hip pain. Neurovascular status intact. CT brain C-spine was obtained showed no acute osseous abnormalities but did show a rounded structure over the communicating artery which could be aneurysm. No evidence for acute intracranial hemorrhage. X-ray of the pelvis and right hip was obtained and did show an abnormality at the right inferior pubic ramus. This was compared to x-ray image obtained of the pelvis and Magy, this appears similar. Patient will be discharged back to [facility] on the [place]. Did discuss all findings with the patient and her daughter. They're instructed to follow-up the primary care physician for recheck in 1-2 days. They're instructed to discuss further imaging of the brain to rule out aneurysm. Return parameters were discussed in detail. They verbalize understanding and agree with this plan. - Lab Data Result diagrams: 03/28/19 01:10 03/28/19 01:10 Lab Results 03/28/19 03/28/19 03/28/19 Range/Units 01:10 01:10 01:10 WBC 8.0 (3.8-10.6) k/uL RBC 3.56 L (3.80-5.40) m/uL Hgb 10.8 L (11.4-16.0) gm/dL Hct 33.1 L (34.0-46.0) % MCV 92.9 (80.0-100.0) fL MCH 30.4 (25.0-35.0) pg MCHC 32.7 (31.0-37.0) g/dL RDW 15.1 (11.5-15.5) % Plt Count 257 (150-450) k/uL Neutrophils % 72 % Lymphocytes % 12 % Monocytes % 7 % Eosinophils % 6 % Basophils % 1 % Neutrophils # 5.7 (1.3-7.7) k/uL Lymphocytes # 1.0 (1.0-4.8) k/uL Monocytes # 0.6 (0-1.0) k/uL Eosinophils # 0.5 (0-0.7) k/uL Basophils # 0.1 (0-0.2) k/uL PT 9.9 (9.0-12.0) sec INR 0.9 (<1.2) APTT 26.7 (22.0-30.0) sec Sodium 134 L (137-145) mmol/L Potassium 5.4 H (3.5-5.1) mmol/L Chloride 99 (98-107) mmol/L Carbon Dioxide 26 (22-30) mmol/L Anion Gap 9 mmol/L BUN 39 H (7-17) mg/dL Creatinine 0.78 (0.52-1.04) mg/dL Est GFR (CKD-EPI)AfAm 81 (>60 ml/min/1.73 sqM) Est GFR (CKD-EPI)NonAf 70 (>60 ml/min/1.73 sqM) Glucose 93 (74-99) mg/dL Calcium 9.8 (8.4-10.2) mg/dL Total Bilirubin <0.1 L (0.2-1.3) mg/dL AST 32 (14-36) U/L ALT 40 (9-52) U/L Alkaline Phosphatase 125 (38-126) U/L Troponin I (0.000-0.034) ng/mL Total Protein 6.6 (6.3-8.2) g/dL Albumin 3.7 (3.5-5.0) g/dL 03/28/19 Range/Units 01:10 WBC (3.8-10.6) k/uL RBC (3.80-5.40) m/uL Hgb (11.4-16.0) gm/dL Hct (34.0-46.0) % MCV (80.0-100.0) fL MCH (25.0-35.0) pg MCHC (31.0-37.0) g/dL RDW (11.5-15.5) % Plt Count (150-450) k/uL Neutrophils % % Lymphocytes % % Monocytes % % Eosinophils % % Basophils % % Neutrophils # (1.3-7.7) k/uL Lymphocytes # (1.0-4.8) k/uL Monocytes # (0-1.0) k/uL Eosinophils # (0-0.7) k/uL Basophils # (0-0.2) k/uL PT (9.0-12.0) sec INR (<1.2) APTT (22.0-30.0) sec Sodium (137-145) mmol/L Potassium (3.5-5.1) mmol/L Chloride (98-107) mmol/L Carbon Dioxide (22-30) mmol/L Anion Gap mmol/L BUN (7-17) mg/dL Creatinine (0.52-1.04) mg/dL Est GFR (CKD-EPI)AfAm (>60 ml/min/1.73 sqM) Est GFR (CKD-EPI)NonAf (>60 ml/min/1.73 sqM) Glucose (74-99) mg/dL Calcium (8.4-10.2) mg/dL Total Bilirubin (0.2-1.3) mg/dL AST (14-36) U/L ALT (9-52) U/L Alkaline Phosphatase (38-126) U/L Troponin I <0.012 (0.000-0.034) ng/mL Total Protein (6.3-8.2) g/dL Albumin (3.5-5.0) g/dL - EKG Data -: EKG Interpreted by Me EKG Comments: EKG obtained at 0109 shows sinus bradycardia with a first-degree AV block. Vent ricular rate is 55, GA interval 236, QRS duration 106, QT 474, QTC 453. No evidence of ST elevation or depression. - Radiology Data Radiology results: report reviewed, image reviewed CT head without contrast was obtained. Report was reviewed in its entirety. Impression by Dr. Martinez shows no acute intracranial findings. Rounded structure unexpected region of anterior communicating artery. Differential includes aneurysm. CT C-spine without contrast is obtained. Report was reviewed in its entirety. Impression by Dr. Martinez shows no acute fracture. Chronic findings do not appear significant change compared to the previous study. One view of the pelvis and 2 views of the right hip are obtained. Report reviewed in its entirety. Impression by Dr. Webster shows moderate bilateral hip osteoarthrosis. There is irregularity of the right inferior by mouth medically miss. Cannot rule out fracture versus degenerative changes. Disposition Clinical Impression: Head injury, Brain aneurysm, Strain of right hip Disposition: HOME SELF-CARE Condition: Good Instructions (If sedation given, give patient instructions): Fall Prevention f or Older Adults (ED), Head Injury (ED), Hip Pain (ED) Additional Instructions: Take Tylenol for pain control. Follow-up through primary care physician for recheck in 1-2 days. Discuss finding of possible brain aneurysm on non-contrast CT, recommend follow up imaging if warranted. Return to the emergency department immediately for any new, worsening, or concerning symptoms. Is patient prescribed a controlled substance at d/c from ED?: No Referrals: Lynn Harris MD [Primary Care Provider] - 1-2 days Time of Disposition: 03:19
--- NOTE | 2019-03-28 02:55 | CT ---
EXAM: CT Head Without Intravenous Contrast CLINICAL HISTORY: ITS.REASON CT Reason: Pain TECHNIQUE: Axial computed tomography images of the head/brain without intravenous contrast. This CT exam was performed using one or more of the following dose reduction techniques: automated exposure control, adjustment of the mA and/or kV according to patient size, and/or use of iterative reconstruction technique. DLP is 1321.7 mGy-cm (combined dose for CT head and C-spine). COMPARISON: January 16, 2019 FINDINGS: Brain: No hemorrhage. No mass effect. Involutional changes. White matter hypodensities. Mitchell white junction preserved. Ventricles: Age appropriate Bones/joints: No acute fracture. Soft tissues: Scalp injury. Sinuses: Well aerated as visualized. Mastoid air cells: Well aerated as visualized. Other findings: Rounded structure expected region of anterior communicating artery. May represent aneurysm, example image 22/201. IMPRESSION: No acute intracranial findings. Rounded structure in expected region of anterior communicating artery. Differential includes aneurysm , example image 22/201. EXAM: CT Cervical Spine Without Intravenous Contrast CLINICAL HISTORY: ITS.REASON CT Reason: Pain TECHNIQUE: Axial computed tomography images of the cervical spine without intravenous contrast. This CT exam was performed using one or more of the following dose reduction techniques: automated exposure control, adjustment of the mA and/or kV according to patient size, and/or use of iterative reconstruction technique. COMPARISON: No relevant prior studies available. FINDINGS: No acute fracture. Degenerative changes, areas of ankylosis, hypertrophy of the craniocervical ligaments with some narrowing of the craniocervical junction, stable areas of mild listhesis and other unchanged findings. IMPRESSION: No acute fracture. Chronic findings do not appear significantly changed compared to the previous study.
--- NOTE | 2019-03-28 03:05 | XR ---
EXAM: XR Pelvis Complete, 3 or More Views CLINICAL HISTORY: ITS.REASON XR Reason: Pain TECHNIQUE: Frontal and lateral or oblique views of the pelvis. COMPARISON: No relevant prior studies available. IMPRESSION: 1. Moderate bilateral hip osteoarthrosis. 2. There is irregularity of the right inferior pubic ramus. Cannot rule out fracture versus degenerative changes.
[2019-03-28 03:24] VITALS: BP 145/82; PULSE 56; RESP 17; TEMP 97.8
== END 2019-03-28 03:57 | disposition home or self-care (01) ==
LOC: EC 00:42
DX: S76.011A Strain of muscle, fascia and tendon of right hip, initial encounter (principal); S00.83XA Contusion of other part of head, initial encounter; I67.1 Cerebral aneurysm, nonruptured; K21.9 Gastro-esophageal reflux disease without esophagitis; E78.5 Hyperlipidemia, unspecified; I10 Essential (primary) hypertension; M19.90 Unspecified osteoarthritis, unspecified site; F32.9 Major depressive disorder, single episode, unspecified; Z86.73 Personal history of transient ischemic attack (TIA), and cerebral infarction without residual deficits; Z86.14 Personal history of Methicillin resistant Staphylococcus aureus infection; Z79.1 Long term (current) use of non-steroidal anti-inflammatories (NSAID); Z79.890 Hormone replacement therapy; Z79.82 Long term (current) use of aspirin; Z79.899 Other long term (current) drug therapy; Z88.1 Allergy status to other antibiotic agents; Z88.5 Allergy status to narcotic agent; Z88.0 Allergy status to penicillin; Z91.013 Allergy to seafood; Z91.018 Allergy to other foods; Z88.2 Allergy status to sulfonamides; W05.0XXA Fall from non-moving wheelchair, initial encounter; Y92.89 Other specified places as the place of occurrence of the external cause
CPT/HCPCS: 36415; 70450; 72125; 73502; 80053; 84484; 85025; 85610; 85730; 93005; 99285

== ENCOUNTER 2019-03-31 21:57 | Observation (INO) | payer MEDICARE, BC, OTHER ==
--- NOTE | 2019-03-31 22:18 | ED ---
General Adult HPI - General Stated complaint: Dizziness - History of Present Illness Initial comments: Yessenia is a pleasant 83-year-old female who is brought to the emergency departm ent today by EMS for evaluation of multiple complaints. Physician who cares for the patient and the senior care reports that yesterday the patient seemed to be hallucinating, she wasn't acting like herself, there is concerned that she may be becoming dehydrated or have a urinary tract infection. Throughout the day today the patient did not get out of bed much, patient states that when she tried getting out of bed she felt somewhat lightheaded but felt better whenever she laid down. Patient also reported that she felt as though there is a band around her lower chest and upper abdomen which she describes as feeling like there is a belt tightening around her lower chest. Patient reports she's experienced something similar to this intermittently in the past but is been significantly worse today than usual. Patient denies any shortness of breath, nausea or vomiting that she's had decreased appetite and decreased activity level. - Related Data Home Medications Medication Instructions Recorded Confirmed Ranitidine HCl [Zantac] 150 mg PO BID@0600,2100 08/23/17 03/31/19 Acetaminophen Tab [Tylenol] 650 mg PO Q6H PRN 01/16/19 03/31/19 Aspirin EC [Ecotrin] 325 mg PO DAILY@89901/16/19 03/31/19 Atenolol 100 mg PO DAILY@89901/16/19 03/31/19 Calcium Carbonate/Vitamin D3 1 tab PO BID@0900,1700 01/16/19 03/31/19 [Calcium 600-Vit D3 400 Caplet] Celecoxib [CeleBREX] 200 mg PO DAILY@89901/16/19 03/31/19 Ferrous Sulfate [Iron (65 MG 325 mg PO DAILY@59901/16/19 03/31/19 Elemental)] Fexofenadine HCl 60 mg PO DAILY@89901/16/19 03/31/19 Furosemide [Lasix] 20 mg PO DAILY@59901/16/19 03/31/19 Gabapentin [Neurontin] 200 mg PO TID@0600,1300,2100 01/16/19 03/31/19 Levothyroxine Sodium [Synthroid] 75 mcg PO DAILY@59901/16/19 03/31/19 Lovastatin [Altoprev] 40 mg PO HS@2100 01/16/19 03/31/19 Multivitamins, Thera [Multivitamin 1 tab PO DAILY@0900 01/16/19 03/31/19 (formulary)] Potassium Chloride ER [K-Dur 20] 20 meq PO BID@0900,1700 01/16/19 03/31/19 Sertraline [Zoloft] 50 mg PO DAILY@0900 01/16/19 03/31/19 Ertapenem [INVanz] 1 gm IVPB DAILY@1500 03/31/19 03/31/19 Isosorbide Mononitrate ER [Imdur] 30 mg PO HS@2100 03/31/19 03/31/19 hydrALAZINE HCL [Apresoline] 50 mg PO BID@0900,2100 03/31/19 03/31/19 Previous Rx's Medication Instructions Recorded Melatonin 6 mg PO HS tablet 01/18/19 Allergies Allergy/AdvReac Type Severity Reaction Status Date / Time ciprofloxacin [From Cipro] Allergy Unknown Verified 03/31/19 22:35 codeine Allergy Unknown Verified 03/31/19 22:35 morphine Allergy Unknown Verified 03/31/19 22:35 Penicillins Allergy Rash/Hives Verified 03/31/19 22:35 shellfish derived [Shellfish] Allergy Unknown Verified 03/31/19 22:35 strawberry Allergy Unknown Verified 03/31/19 22:35 Sulfa (Sulfonamide Allergy Rash/Hives Verified 03/31/19 22:35 Antibiotics) Review of Systems ROS Statement: Those systems with pertinent positive or pertinent negative responses have been documented in the HPI. ROS Other: All systems not noted in ROS Statement are negative. Past Medical History Past Medical History: CVA/TIA, GERD/Reflux, Hyperlipidemia, Hypertension, Osteoarthritis (OA) Additional Past Medical History / Comment(s): uti, leg atrophy, past blood clot after back sx. self caths for over 40 years,RECENT FALL @ [facility], SUTURES TO R FOREHEAD AND STERI STRIPS TO LEFT FOREARM. History of Any Multi-Drug Resistant Organisms: ESBL, MRSA Date of last positivie culture/infection: ESBL 03/19/19 MRSA 03/14/18 MDRO Source:: MRSA / ESBL URINE Past Surgical History: Appendectomy, Back Surgery, Tonsillectomy Additional Past Surgical History / Comment(s): cervical spine sx, cataracts-lens implants Past Anesthesia/Blood Transfusion Reactions: Postoperative Nausea & Vomiting (PONV) Additional Past Anesthesia/Blood Transfusion Reaction / Comment(s): past blood transfusion-no reaction Past Psychological History: Depression Smoking Status: Never smoker Past Alcohol Use History: Occasional Past Drug Use History: None Reported - Past Family History Mother History Unknown: Yes Additional Family Medical History / Comment(s): mom in her sleep, unk cause Father Family Medical History: Myocardial Infarction ([place]) General Exam - General Exam Comments Initial Comments: Physical Exam GENERAL: Patient is well-developed and well-nourished. Patient is nontoxic and well- hydrated and is in no distress. HENT: Normocephalic Well healing contusion on the forehead EYES: PERRL, EOMI PULMONARY: Unlabored respirations. No audible rales rhonchi or wheezing was noted. CARDIOVASCULAR: There is a regular rate and rhythm without any murmurs gallops or rubs. ABDOMEN: Soft and nontender with normal bowel sounds. SKIN: Skin is clear with no lesions or rashes and otherwise unremarkable. : Deferred NEUROLOGIC: Patient is alert and oriented x3. Moving all extremities spontaneously Cranial nerves II through XII grossly intact MUSCULOSKELETAL: Normal extremities with adequate strength and full range of motion. No lower extremity swelling or edema. No calf tenderness. PSYCHIATRIC: Normal psychiatric evaluation. Course Vital Signs 03/31/19 03/31/19 04/01/19 22:13 23:36 00:37 Temperature 94.6 F L 97.5 F L Pulse Rate 60 60 64 Respiratory 18 18 18 Rate Blood Pressure 198/103 182/99 195/106 O2 Sat by Pulse 98 98 96 Oximetry 04/01/19 04/01/19 02:07 02:18 Temperature Pulse Rate 63 60 Respiratory 18 18 Rate Blood Pressure 186/100 152/84 O2 Sat by Pulse 97 95 Oximetry Medical Decision Making - Medical Decision Making The patient was seen and evaluated, history was obtained from the patient, daughter bedside as well as patient's physician Dr. Harris who is very familiar with the patient. Labs and imaging were ordered given the patient is having hypertension and dizziness a computed tomography scan of CT angiography of the head were ordered. CT and CT angiography with unchanged anterior commune indicating artery aneurysm Labs the patient's baseline Urinalysis with no signs of urinary tract infection Given the patient is having bandlike chest pressure has advanced age Dr. Harris recommended admission for echocardiogram and serial labs Admission orders were placed Patient did receive 1 nitro which improved her blood pressure while in the emergency department - Lab Data Result diagrams: 03/31/19 22:16 03/31/19 22:16 Lab Results 03/31/19 03/31/19 03/31/19 Range/Units 22:16 22:16 22:16 WBC 6.1 (3.8-10.6) k/uL RBC 3.77 L (3.80-5.40) m/uL Hgb 11.7 (11.4-16.0) gm/dL Hct 35.8 (34.0-46.0) % MCV 95.0 (80.0-100.0) fL MCH 31.1 (25.0-35.0) pg MCHC 32.7 (31.0-37.0) g/dL RDW 15.3 (11.5-15.5) % Plt Count 258 (150-450) k/uL Neutrophils % 60 % Lymphocytes % 21 % Monocytes % 9 % Eosinophils % 8 % Basophils % 1 % Neutrophils # 3.6 (1.3-7.7) k/uL Lymphocytes # 1.3 (1.0-4.8) k/uL Monocytes # 0.5 (0-1.0) k/uL Eosinophils # 0.5 (0-0.7) k/uL Basophils # 0.1 (0-0.2) k/uL PT 9.8 (9.0-12.0) sec INR 0.9 (<1.2) APTT 28.0 (22.0-30.0) sec Sodium 134 L (137-145) mmol/L Potassium 5.5 H (3.5-5.1) mmol/L Chloride 98 (98-107) mmol/L Carbon Dioxide 28 (22-30) mmol/L Anion Gap 8 mmol/L BUN 27 H (7-17) mg/dL Creatinine 0.75 (0.52-1.04) mg/dL Est GFR (CKD-EPI)AfAm 84 (>60 ml/min/1.73 sqM) Est GFR (CKD-EPI)NonAf 73 (>60 ml/min/1.73 sqM) Glucose 120 H (74-99) mg/dL Plasma Lactic Acid Cole (0.7-2.0) mmol/L Calcium 10.2 (8.4-10.2) mg/dL Magnesium 2.1 (1.6-2.3) mg/dL Total Bilirubin 0.2 (0.2-1.3) mg/dL AST 33 (14-36) U/L ALT 30 (9-52) U/L Alkaline Phosphatase 114 (38-126) U/L Troponin I (0.000-0.034) ng/mL Total Protein 6.8 (6.3-8.2) g/dL Albumin 3.9 (3.5-5.0) g/dL Lipase 123 (23-300) U/L Urine Color Urine Appearance (Clear) Urine pH (5.0-8.0) Ur Specific [place] (1.001-1.035) Urine Protein (Negative) Urine Glucose (UA) (Negative) Urine Ketones (Negative) Urine Blood (Negative) Urine Nitrite (Negative) Urine Bilirubin (Negative) Urine Urobilinogen (<2.0) mg/dL Ur Leukocyte Esterase (Negative) Urine RBC (0-5) /hpf Urine WBC (0-5) /hpf Ur Squamous Epith Cells (0-4) /hpf Urine Bacteria (None) /hpf 03/31/19 03/31/19 04/01/19 Range/Units 22:16 22:16 01:06 WBC (3.8-10.6) k/uL RBC (3.80-5.40) m/uL Hgb (11.4-16.0) gm/dL Hct (34.0-46.0) % MCV (80.0-100.0) fL MCH (25.0-35.0) pg MCHC (31.0-37.0) g/dL RDW (11.5-15.5) % Plt Count (150-450) k/uL Neutrophils % % Lymphocytes % % Monocytes % % Eosinophils % % Basophils % % Neutrophils # (1.3-7.7) k/uL Lymphocytes # (1.0-4.8) k/uL Monocytes # (0-1.0) k/uL Eosinophils # (0-0.7) k/uL Basophils # (0-0.2) k/uL PT (9.0-12.0) sec INR (<1.2) APTT (22.0-30.0) sec Sodium (137-145) mmol/L Potassium (3.5-5.1) mmol/L Chloride (98-107) mmol/L Carbon Dioxide (22-30) mmol/L Anion Gap mmol/L BUN (7-17) mg/dL Creatinine (0.52-1.04) mg/dL Est GFR (CKD-EPI)AfAm (>60 ml/min/1.73 sqM) Est GFR (CKD-EPI)NonAf (>60 ml/min/1.73 sqM) Glucose (74-99) mg/dL Plasma Lactic Acid Cole 1.1 (0.7-2.0) mmol/L Calcium (8.4-10.2) mg/dL Magnesium (1.6-2.3) mg/dL Total Bilirubin (0.2-1.3) mg/dL AST (14-36) U/L ALT (9-52) U/L Alkaline Phosphatase (38-126) U/L Troponin I <0.012 (0.000-0.034) ng/mL Total Protein (6.3-8.2) g/dL Albumin (3.5-5.0) g/dL Lipase (23-300) U/L Urine Color Light Yellow Urine Appearance Clear (Clear) Urine pH 7.5 (5.0-8.0) Ur Specific [place] 1.019 (1.001-1.035) Urine Protein Negative (Negative) Urine Glucose (UA) Negative (Negative) Urine Ketones Negative (Negative) Urine Blood Negative (Negative) Urine Nitrite Negative (Negative) Urine Bilirubin Negative (Negative) Urine Urobilinogen <2.0 (<2.0) mg/dL Ur Leukocyte Esterase Small H (Negative) Urine RBC <1 (0-5) /hpf Urine WBC 2 (0-5) /hpf Ur Squamous Epith Cells 1 (0-4) /hpf Urine Bacteria Rare H (None) /hpf Disposition Clinical Impression: Brain aneurysm, Chest pain Disposition: ADMITTED IP TO THIS [facility] Condition: Stable
[2019-03-31] MEDS ORDERED: SODIUM CHLORIDE 0.9% 1,000 ML IV ONE (22:31)
[2019-03-31 22:44] LABS: Basophils # (A) 0.1 k/uL (0-0.2); Basophils % (A) 1 %; Eosinophils # (A) 0.5 k/uL (0-0.7); Eosinophils % (A) 8 %; HCT 35.8 % (34.0-46.0); HGB 11.7 gm/dL (11.4-16.0); Lymphocytes # (A) 1.3 k/uL (1.0-4.8); Lymphocytes % (A) 21 %; MCH 31.1 pg (25.0-35.0); MCHC 32.7 g/dL (31.0-37.0); Mean Platelet Volume 7.1; Monocytes # (A) 0.5 k/uL (0-1.0); Monocytes % (A) 9 %; Neutrophils # (A) 3.6 k/uL (1.3-7.7); Neutrophils % (A) 60 %; Platelet Count 258 k/uL (150-450); RBC 3.77 m/uL (3.80-5.40); RDW 15.3 % (11.5-15.5); WBC 6.1 k/uL (3.8-10.6)
[2019-03-31 22:51] LABS: Albumin 3.9 g/dL (3.5-5.0); Calcium 10.2 mg/dL (8.4-10.2); Magnesium 2.1 mg/dL (1.6-2.3); Potassium 5.5 mmol/L (3.5-5.1); Total Bilirubin 0.2 mg/dL (0.2-1.3); Total Protein 6.8 g/dL (6.3-8.2)
[2019-03-31 23:00] LABS: INR 0.9 (<1.2); Prothrombin Time 9.8 sec (9.0-12.0)
--- NOTE | 2019-03-31 23:17 | XR ---
EXAM: XR Chest, 2 Views CLINICAL HISTORY: Chest pain. TECHNIQUE: Frontal and lateral views of the chest. COMPARISON: 01/16/2019. FINDINGS: Lungs: There is prominence of central pulmonary vasculature. Subsegmental atelectasis at the left lung base is noted. Pleural space: Interstitial prominence is noted. Small left pleural effusion is noted. No pneumothorax. Heart: There is cardiomegaly. Mediastinum: Unremarkable. Bones/joints: Mild to moderate degenerative disc disease of the thoracic spine is noted. Other findings: . There is mild hypoaeration. IMPRESSION: Congestive heart failure.
--- NOTE | 2019-03-31 23:36 | CT ---
EXAM: CT Head Without Intravenous Contrast CLINICAL HISTORY: Headache. TECHNIQUE: Axial computed tomography images of the head/brain without intravenous contrast. CTDI is 65.3 mGy and DLP is 391.5 mGy-cm. This CT exam was performed using one or more of the following dose reduction techniques: automated exposure control, adjustment of the mA and/or kV according to patient size, and/or use of iterative reconstruction technique. COMPARISON: 03/28/2019. FINDINGS: Brain: Age-related atrophy and small vessel disease of aging. No abnormal extra-axial collection. No hemorrhage. Midline shift: No midline shift or mass-effect. Ventricles: Unremarkable. No ventriculomegaly. Bones/joints: Unremarkable. No acute fracture. Soft tissues: Unremarkable. Vasculature: A 0.7 x 0.5 cm ovoid structure is noted at the expected location of the anterior communicating artery suggestive of an aneurysm. Sinuses: Bony skull and mastoid air cells are unremarkable. Mild chronic left maxillary sinusitis is noted. Mastoid air cells: Unremarkable as visualized. No mastoid effusion. IMPRESSION: Age-related atrophy and small vessel disease of aging. Findings suggestive of a 0.7 cm aneurysm arising from the expected location of the anterior communicating artery of the [place]. Magnetic resonance angiography of the brain is advised for follow-up.
--- NOTE | 2019-03-31 23:53 | CT ---
EXAM: CT Angiography Head Without And With Intravenous Contrast CLINICAL HISTORY: : Pain TECHNIQUE: Axial computed tomographic angiography images of the head without and with intravenous contrast using CT angiography protocol. CTDI is 48.8 mGy and DLP is 430.5 mGy-cm. This CT exam was performed using one or more of the following dose reduction techniques: automated exposure control, adjustment of the mA and/or kV according to patient size, and/or use of iterative reconstruction technique. MIP reconstructed images were created and reviewed. Coronal and sagittal reformatted images were created and reviewed. COMPARISON: No relevant prior studies available. FINDINGS: VASCULATURE: Right internal carotid artery: No acute findings. Intracranial segment is patent with no significant stenosis. No aneurysm. 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 No occlusion or significant stenosis. No aneurysm. Right middle cerebral artery: Unremarkable. No occlusion or significant stenosis. No aneurysm. Right posterior cerebral artery: Persistent origin with an atretic P1 segment suspected No occlusion or significant stenosis. No aneurysm. Right vertebral artery: Unremarkable as visualized. Left internal carotid artery: No acute findings. Intracranial segment is patent with no significant stenosis. No aneurysm. Left anterior cerebral artery: Unremarkable. No occlusion or significant stenosis. No aneurysm. Left middle cerebral artery: Unremarkable. No occlusion or significant stenosis. No aneurysm. Left posterior cerebral artery: Unremarkable. No occlusion or significant stenosis. No aneurysm. Left vertebral artery: Unremarkable as visualized. Basilar artery: Unremarkable. No occlusion or significant stenosis. No aneurysm. 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 Otherwise unremarkable CTA of the brain EXAM: CT Angiography Neck With Intravenous Contrast CLINICAL HISTORY: : Pain TECHNIQUE: Axial computed tomographic angiography images of the neck with intravenous contrast using CT angiography protocol. CTDI is 9.3 mGy and DLP is 91.5 mGy-cm. This CT exam was performed using one or more of the following dose reduction techniques: automated exposure control, adjustment of the mA and/or kV according to patient size, and/or use of iterative reconstruction technique. MIP reconstructed images were created and reviewed. Coronal and sagittal reformatted images were created and reviewed. COMPARISON: No relevant prior studies available. FINDINGS: VASCULATURE: Right common carotid artery: Unremarkable. No significant stenosis. No dissection or occlusion. Right internal carotid artery: Unremarkable. Extracranial segment is patent with no significant stenosis. No dissection or occlusion. Right external carotid artery: Unremarkable. No occlusion. Right vertebral artery: Unremarkable. No significant stenosis. No dissection or occlusion. Left common carotid artery: Unremarkable. No significant stenosis. No dissection or occlusion. Left internal carotid artery: Unremarkable. Extracranial segment is patent with no significant stenosis. No dissection or occlusion. Left external carotid artery: Unremarkable. No occlusion. Left vertebral artery: Unremarkable. No significant stenosis. No dissection or occlusion. NECK: Bones/joints: No acute fracture. No dislocation. Soft tissues: Prominence of the interstitial markings in the lung apices bilaterally CAROTID STENOSIS REFERENCE USING NASCET CRITERIA: % ICA stenosis = (1 - narrowest ICA diameter/diameter of distal cervical ICA) x 100. Mild - <50% stenosis. Moderate - 50-69% stenosis. Severe - 70-94% stenosis. Near occlusion - 95-99% stenosis. Occluded - 100% stenosis. IMPRESSION: No significant stenosis left or right common or internal carotid arteries. Unremarkable appearance vertebral arteries.
[2019-04-01 01:19] LABS: Appearance,Urine Clear (Clear); Bacteria,Urine Rare /hpf; Bilirubin,Urine Negative (Negative); Blood,Urine Negative (Negative); Color,Urine Light Yellow; Glucose,Urine (UA) Negative (Negative); Ketones,Urine Negative (Negative); Leukocyte Esterase,Urine Small (Negative); Nitrite,Urine Negative (Negative); PH, Urine 7.5 (5.0-8.0); Protein,Urine Negative (Negative); RBC,Urine <1 /hpf (0-5); Specific Gravity,Urine 1.019 (1.001-1.035); Squamous Epithelial Cell,Urine 1 /hpf (0-4); Urobilinogen,Urine <2.0 mg/dL (<2.0)
[2019-04-01] MEDS: SODIUM CHLORIDE 0.9% 1,000 ML IV STA ×2 (01:22→02:05)
[2019-04-01] MEDS ORDERED: NITROGLYCERIN SL TABS 0.4 MG TAB SUBLINGUAL PRN (01:27)
[2019-04-01] MEDS ORDERED: NITROGLYCERIN OINT 1 INCH/GM PACKET TOPICAL SCH (04:19)
[2019-04-01] MEDS: hydrALAZINE HCL 50 MG TAB PO SCH ×3 (04:51→16:37)
[2019-04-01 05:44] LABS: Appearance,Urine Cloudy (Clear); Bilirubin,Urine Negative (Negative); Blood,Urine Negative (Negative); Color,Urine Light Yellow; Glucose,Urine (UA) Negative (Negative); Ketones,Urine Negative (Negative); Leukocyte Esterase,Urine Trace (Negative); Mucus,Urine Rare /hpf; Nitrite,Urine Negative (Negative); PH, Urine 7.5 (5.0-8.0); Protein,Urine Negative (Negative); RBC,Urine 1 /hpf (0-5); Renal Epithelial Cells,Urine 3 /hpf (0); Specific Gravity,Urine 1.019 (1.001-1.035); Squamous Epithelial Cell,Urine 4 /hpf (0-4); Urobilinogen,Urine <2.0 mg/dL (<2.0)
[2019-04-01] MEDS ORDERED: ACETAMINOPHEN TAB 325 MG TAB PO PRN (08:01)
[2019-04-01] MEDS ORDERED: FUROSEMIDE 20 MG TAB PO SCH (08:30)
[2019-04-01] MEDS ORDERED: ATENOLOL 50 MG TAB PO SCH (09:00)
[2019-04-01] MEDS ORDERED: ASPIRIN 325 MG TAB PO SCH (09:00)
[2019-04-01] MEDS ORDERED: ERTAPENEM 1 GM in SODIUM CHLORIDE 0.9% 50 ML IVPB SCH (09:00)
[2019-04-01] MEDS ORDERED: MULTIVITAMINS, THERA 1 EACH TAB PO SCH (09:00)
[2019-04-01] MEDS ORDERED: LORATADINE 10 MG TAB PO SCH (09:00)
[2019-04-01] MEDS ORDERED: SERTRALINE 50 MG TAB PO SCH (09:00)
[2019-04-01] MEDS ORDERED: MELOXICAM 7.5 MG TAB PO SCH (09:00)
[2019-04-01] MEDS: POTASSIUM CHLORIDE ER 20 MEQ TAB.ER PO SCH ×2 (09:02→14:16)
--- NOTE | 2019-04-01 09:14 | P.HPIM ---
History of Present Illness H&P Date: 04/01/19 Chief Complaint: Dizziness This is an 83-year-old female patient of Dr. Harris long-term resident at [facility] with history of hypertension, hyperlipidemia, lower extremity paraplegia non-ambulatory, neurogenic bladder, hospitalization in January 2019 for non-ST elevated myocardial infarction along, frequent urinary tract infections with jujkw-[id number] organisms requiring IV antibiotics. The patient has been on a bladder training regime at the long-term and requires 3 person assist to a commode chair. Patient gives history of 2 recent falls and for one of those she came into the emergency center on March [address] of the head and C-spine and x-rays of the right hip which were all negative for acute findings. Patient was transferred back to the long-term. On March 19, urinalysis was sent was found to have leukoesterase large, wbc's 151, bacteria many. Patient was given 1 dose of Invanz on March 23. She has a midline placed in the left arm and she started a course of Invanz on March 26 as the urine culture came back positive for ESBL E. coli. Yesterday, patient states that she got up in the morning was feeling quite dizzy in the room was spinning. In general she was not feeling her normal self. She did complain of abdominal pain/chest pain as a band across the upper abdomen lower chest. She was having some confusion yesterday. Patient was not acting like herself, not eating or drinking.. Patient has had ongoing problems with urinary retention and she states that she was not able to urinate all day yesterday and Rodriguez catheter was placed last evening. Patient was transferred to [facility] emergency ce nter for evaluation. She was found to be hypertensive up to 198/103. Patient was given Nitropaste and 2 L of IV fluid. Sodium was 134, potassium 5.5, troponin 0.012 and 0.013. Urinalysis was clear with leukoesterase small, bacteria rare. Chest x-ray positive for congestive heart failure. CAT scan of the brain showed a direct related atrophy and small vessel ischemic changes. There is a 0.7 cm aneurysm arising from the [place]. 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 CT angiogram of the neck revealed no significant stenosis left or right common or internal carotid arteries. Unremarkable appearance of the vertebral arteries. Patient was admitted to the selective care unit, resumed on her home medications and consult requested with infectious disease and cardiology. Echocardiogram has been ordered. Blood cultures status received. Blood pressure is improved this morning at 145/82, pulse ox is 100% on room air, heart rate in the 50s and 60s, afebrile. shelter monitor has been a sinus rhythm. Review of Systems Constitutional: Reports fatigue, Reports malaise, Reports poor appetite, Reports weakness, Denies anorexia, Denies chills, Denies fever Ears, nose, mouth and throat: Reports vertigo, Denies dysphagia, Denies mouth pain, Denies nasal congestion, Denies nasal discharge Cardiovascular: Denies chest pain, Denies decreased exercise tolerance, Denies dyspnea on exertion, Denies edema, Denies leg edema, Denies lightheadedness, Denies shortness of breath, Denies syncope Respiratory: Denies congestion, Denies cough, Denies cough with sputum, Denies dyspnea, Denies excessive sputum, Denies hemoptysis, Denies home oxygen, Denies wheezing Gastrointestinal: Reports abdominal pain, Reports loss of appetite, Denies diarrhea, Denies nausea, Denies vomiting Genitourinary: Reports difficulty voiding, Denies flank pain, Denies urinary frequency Musculoskeletal: Reports frequent falls, Reports gait dysfunction, Reports m uscle weakness Integumentary: Reports color changes, Denies pruritus, Denies rash, Denies wounds Neurological: Reports vertigo, Denies ataxia, Denies change in mentation, Denies change in speech, Denies seizures, Denies syncope Psychiatric: Denies anxiety, Denies depression Endocrine: Denies fatigue, Denies weight change Past Medical History Past Medical History: CVA/TIA, GERD/Reflux, Hyperlipidemia, Hypertension, Osteoarthritis (OA) Additional Past Medical History / Comment(s): uti, leg atrophy, past blood clot after back sx. self caths for over 40 years,RECENT FALL @ [facility], SUTURES TO R FOREHEAD AND STERI STRIPS TO LEFT FOREARM. History of Any Multi-Drug Resistant Organisms: ESBL, MRSA Date of last positivie culture/infection: ESBL 03/19/19 MRSA 03/14/18 MDRO Source:: MRSA / ESBL URINE Past Surgical History: Appendectomy, Back Surgery, Tonsillectomy Additional Past Surgical History / Comment(s): cervical spine sx, cataracts-lens implants Past Anesthesia/Blood Transfusion Reactions: Postoperative Nausea & Vomiting (PONV) Additional Past Anesthesia/Blood Transfusion Reaction / Comment(s): past blood transfusion-no reaction Past Psychological History: Depression Additional Psychological History / Comment(s): PT CURRENTLY LIVES AT [facility]. Smoking Status: Never smoker Past Alcohol Use History: Occasional Past Drug Use History: None Reported - Past Family History Mother History Unknown: Yes Additional Family Medical History / Comment(s): mom in her sleep, unk cause Father Family Medical History: Myocardial Infarction ([place]) Medications and Allergies Home Medications Medication Instructions Recorded Confirmed Type Ranitidine HCl [Zantac] 150 mg PO BID@0600,209908/23/17 03/31/19 History Acetaminophen Tab [Tylenol] 650 mg PO Q6H PRN 01/16/19 03/31/19 History Aspirin EC [Ecotrin] 325 mg PO DAILY@0901/16/19 03/31/19 History Atenolol 100 mg PO DAILY@0901/16/19 03/31/19 History Calcium Carbonate/Vitamin D3 1 tab PO BID@0900,1700 01/16/19 03/31/19 History [Calcium 600-Vit D3 400 [place]] Celecoxib [CeleBREX] 200 mg PO DAILY@0901/16/19 03/31/19 History Ferrous Sulfate [Iron (65 MG 325 mg PO DAILY@59901/16/19 03/31/19 History Elemental)] Fexofenadine HCl 60 mg PO DAILY@0901/16/19 03/31/19 History Furosemide [Lasix] 20 mg PO DAILY@59901/16/19 03/31/19 History Gabapentin [Neurontin] 200 mg PO TID@0600,1300,209901/16/19 03/31/19 History Levothyroxine Sodium [Synthroid] 75 mcg PO DAILY@59901/16/19 03/31/19 History Lovastatin [Altoprev] 40 mg PO HS@209901/16/19 03/31/19 History Multivitamins, Thera [Multivitamin 1 tab PO DAILY@0900 01/16/19 03/31/19 History (formulary)] Potassium Chloride ER [K-Dur 20] 20 meq PO BID@0900,1700 01/16/19 03/31/19 History Sertraline [Zoloft] 50 mg PO DAILY@0900 01/16/19 03/31/19 History Melatonin 6 mg PO HS tablet 01/18/19 03/31/19 Rx Ertapenem [INVanz] 1 gm IVPB DAILY@1500 03/31/19 03/31/19 History Isosorbide Mononitrate ER [Imdur] 30 mg PO HS@2100 03/31/19 03/31/19 History hydrALAZINE HCL [Apresoline] 50 mg PO BID@0900,2100 03/31/19 03/31/19 History Allergies Allergy/AdvReac Type Severity Reaction Status Date / Time ciprofloxacin [From Cipro] Allergy Unknown Verified 03/31/19 22:35 codeine Allergy Unknown Verified 03/31/19 22:35 morphine Allergy Unknown Verified 03/31/19 22:35 Penicillins Allergy Rash/Hives Verified 03/31/19 22:35 shellfish derived [Shellfish] Allergy Unknown Verified 03/31/19 22:35 strawberry Allergy Unknown Verified 03/31/19 22:35 Sulfa (Sulfonamide Allergy Rash/Hives Verified 03/31/19 22:35 Antibiotics) Physical Exam Vitals: Vital Signs Temp Pulse Pulse Resp BP BP Pulse Ox 04/01/19 07:34 97.6 F 64 16 115/61 95 04/01/19 06:41 112/64 04/01/19 03:36 97.6 F 67 16 194/91 95 04/01/19 02:18 60 18 152/84 95 04/01/19 02:07 63 18 186/100 97 04/01/19 00:37 64 18 195/106 96 03/31/19 23:36 97.5 F L 60 18 182/99 98 03/31/19 22:13 94.6 F L 60 18 198/103 98 Intake and Output 03/31/19 04/01/19 04/01/19 22:59 06:59 14:59 Output Total 1000 Balance -1000 Output: Urine 1000 Other: Voiding Method Self-Catheterization Self-Catheterization Weight 63.503 kg Gen: This is an 83-year-old female. She is resting in bed and appears to be comfortable and in no acute distress. HEENT: Significant ecchymosis to the right orbital area including the nasal bridge and forehead, normocephalic. Pupils equal, round. Sclerae is anicteric. NECK: Supple. No JVD. No lymphadenopathy. No thyromegaly. LUNGS: Diminished bilaterally. No intercostal retractions. HEART: Regular rate and rhythm. Systolic murmur. ABDOMEN: Soft. Bowel sounds are present. No masses. No tenderness. No suprapubic tenderness, no flank tenderness. Rodriguez catheter draining denis urine. EXTREMITIES: No pedal edema. No calf tenderness. Dorsalis pedis +2 bilatera lly. Midline to the right arm. NEUROLOGICAL: Patient is awake, alert and oriented x3. Cranial nerves 2 through 12 are grossly intact. Results CBC & Chem 7: 03/31/19 22:16 03/31/19 22:16 Labs: Abnormal Lab Results - Last 24 Hours (Table) 03/31/19 03/31/19 04/01/19 Range/Units 22:16 22:16 01:06 RBC 3.77 L (3.80-5.40) m/uL Sodium 134 L (137-145) mmol/L Potassium 5.5 H (3.5-5.1) mmol/L BUN 27 H (7-17) mg/dL Glucose 120 H (74-99) mg/dL Urine Appearance (Clear) Ur Leukocyte Esterase Small H (Negative) Urine Bacteria Rare H (None) /hpf Urine Mucus (None) /hpf 04/01/19 Range/Units 05:30 RBC (3.80-5.40) m/uL Sodium (137-145) mmol/L Potassium (3.5-5.1) mmol/L BUN (7-17) mg/dL Glucose (74-99) mg/dL Urine Appearance Cloudy H (Clear) Ur Leukocyte Esterase Trace H (Negative) Urine Bacteria (None) /hpf Urine Mucus Rare H (None) /hpf Thrombosis Risk Factor Assmnt - DVT/VTE Prophylaxis DVT/VTE Prophylaxis: Pharmacologic Prophylaxis ordered - Choose All That Apply Any of the Below Risk Factors Present?: Yes Each Factor Represents 1 point: Swollen legs (current) Each Risk Factor Represents 2 Points: Patient confined to bed Each Risk Factor Represents 3 Points: Age 75 years or older, History of DVT/PE Other congenital or acquired thrombophilia - If yes, enter type in comment: No Thrombosis Risk Factor Assessment Total Risk Factor Score: 9 Thrombosis Risk Factor Assessment Level: High Risk Assessment and Plan Plan: 1. 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 Patient will be started on prednisone 40 mg daily for 3 day taper. Start meclizine twice daily. Orthostatic vital signs will be checked flat and sitting as patient is unable to stand. 2. Chest pain. Cardiology consult. If no change from previous echocardiogram, no further cardiac workup and cardiology is following on an as-needed basis. Transferred to [facility]. 3. ESBL E. coli UTI, probable catheter associated due to history of urinary retention, under treatment with midline placement in the left arm and Invanz since March 26. Continue Invanz. Consult with infectious disease to obtain du ration of antibiotics. 4. Brain aneurysm, known. Patient has MRI of the brain scheduled as an out patient that was arranged by the long-term. We will ask for a consult with Dr. Harp for any other recommendations. 5. Recent non-ST elevated myocardial infarction January 2019. Continue aspirin, L ipitor, atenolol, Imdur, nitroglycerin sublingual as needed. 6. Frequent falls, CAT scan of the brain, CAT scan of the cervical spine and right hip all negative for acute findings. 7. History of closed head injury with laceration to the right orbit January 13. 8. History of Proteus multidrug resistant UTI, completed treatment in January. 9. Hypertension, uncontrolled. Continue atenolol 100 mg daily, Lasix 20 mg daily, hydralazine 50 mg 3 times daily. 10. Neurogenic bladder with urinary retention. Rodriguez catheter has been placed. 11. Lower extremity paraplegia, patient is normally bed bound/wheelchair bound and requires three-person assist. Continue gabapentin 200 mg 3 times daily 12. Gastroesophageal reflux disease and GI prophylaxis. Continue Pepcid. 13. Hypothyroidism. Continue levothyroxine 75 g daily. 14. Recurrent depression. Continue Zoloft 50 mg daily. 15. DVT prophylaxis. Hold heparin subcu due to brain aneurysm. CESILIA loya. Patient will be admitted to the hospital for a minimum of 2 night stay. Discharge plan: Return to [facility] on Thursday. Impression and plan of care have been directed as dictated by the signing physician. Monika Saldivar nurse practitioner acting as scribe for signing physician.
[2019-04-01] MEDS: CALCIUM CARBONATE 500 MG CHEWABLE PO SCH ×2 (09:17→16:36)
--- NOTE | 2019-04-01 09:36 | P.CRDCN ---
History of Present Illness Consult date: 04/01/19 Requesting physician: Lynn Harris Reason for Consult (text): chest pain, htn Chief complaint: dizziness, weakness, fatigue History of present illness: This is a pleasant 83-year-old female patient who resides in an extended care facility. She has a history of CVA, GERD, hyperlipidemia, hypertension, memory impairment and recent falls. Presented to the emergency department from [facility] due to significant dizziness and apparent bandlike pressure around her upper abdomen and lower chest. According to the patient, she slept later than usual yesterday was feeling quite tired and was more weak than usual. [facility]aph at the extended care facility helped her stand to get in her wheelchair to go to the bathroom and she became very dizzy stating that she felt as if the room was spinning. Computed tomography scan on admission showed age-related atrophy and small vessel disease of aging, findings suggestive of a 0.7 cm aneurysm arising from the anterior communicating artery of the [place] of [place] and advised MRA for follow-up. 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 EKG on admission shows sinus rhythm with first-degree AV block. Laboratory values on admission showed a sodium of 134, potassium 5.5, BUN 27 and creatinine of 0.75. Troponins have been negative 2. Left pressure on admission was initially e levated but his well-controlled this morning. Medications currently include hydralazine 50 mg by mouth twice a day, potassium chloride 20 mEq twice a day, lovastatin 40 mg daily at bedtime, levothyroxine 75 mg daily, isosorbide mononitrate ER 30 mg by mouth daily at bedtime, Lasix 20 mg by mouth daily, aspirin 325 mg by mouth daily and atenolol 100 mg by mouth daily. Upon examination, patient is resting completely embedded. She denies current complaints of dizziness and denies any complaints of chest discomfort. She denies complaints of shortness of breath, palpitations, orthopnea, PND, syncope, or edema. She did have a 2-D echo with Doppler in January of this year which showed normal LV systolic function with ejection fraction between 55-60%, mild aortic sclerosis, mild AR, mild MR and mild TR. Past Medical History Past Medical History: CVA/TIA, GERD/Reflux, Hyperlipidemia, Hypertension, Osteoarthritis (OA) Additional Past Medical History / Comment(s): uti, leg atrophy, past blood clot after back sx. self caths for over 40 years,RECENT FALL @ [facility], SUTURES TO R FOREHEAD AND STERI STRIPS TO LEFT FOREARM. History of Any Multi-Drug Resistant Organisms: ESBL, MRSA Date of last positivie culture/infection: ESBL 03/19/19 MRSA 03/14/18 MDRO Source:: MRSA / ESBL URINE Past Surgical History: Appendectomy, Back Surgery, Tonsillectomy Additional Past Surgical History / Comment(s): cervical spine sx, cataracts-lens implants Past Anesthesia/Blood Transfusion Reactions: Postoperative Nausea & Vomiting (PONV) Additional Past Anesthesia/Blood Transfusion Reaction / Comment(s): past blood transfusion-no reaction Past Psychological History: Depression Additional Psychological History / Comment(s): PT CURRENTLY LIVES AT [facility] [address]. Smoking Status: Never smoker Past Alcohol Use History: Occasional Past Drug Use History: None Reported - Past Family History Mother History Unknown: Yes Additional Family Medical History / Comment(s): mom in her sleep, unk cause Father Family Medical History: Myocardial Infarction ([place]) Medications and Allergies Home Medications Medication Instructions Recorded Confirmed Type Ranitidine HCl [Zantac] 150 mg PO BID@0600,2100 08/23/17 03/31/19 History Acetaminophen Tab [Tylenol] 650 mg PO Q6H PRN 01/16/19 03/31/19 History Aspirin EC [Ecotrin] 325 mg PO DAILY@0900 01/16/19 03/31/19 History Atenolol 100 mg PO DAILY@89901/16/19 03/31/19 History Calcium Carbonate/Vitamin D3 1 tab PO BID@0900,1700 01/16/19 03/31/19 History [Calcium 600-Vit D3 400 Caplet] Celecoxib [CeleBREX] 200 mg PO DAILY@89901/16/19 03/31/19 History Ferrous Sulfate [Iron (65 MG 325 mg PO DAILY@59901/16/19 03/31/19 History Elemental)] Fexofenadine HCl 60 mg PO DAILY@0900 01/16/19 03/31/19 History Furosemide [Lasix] 20 mg PO DAILY@59901/16/19 03/31/19 History Gabapentin [Neurontin] 200 mg PO TID@0600,1300,2100 01/16/19 03/31/19 History Levothyroxine Sodium [Synthroid] 75 mcg PO DAILY@0600 01/16/19 03/31/19 History Lovastatin [Altoprev] 40 mg PO HS@2100 01/16/19 03/31/19 History Multivitamins, Thera [Multivitamin 1 tab PO DAILY@0900 01/16/19 03/31/19 History (formulary)] Potassium Chloride ER [K-Dur 20] 20 meq PO BID@0900,1700 01/16/19 03/31/19 History Sertraline [Zoloft] 50 mg PO DAILY@0900 01/16/19 03/31/19 History Melatonin 6 mg PO HS tablet 01/18/19 03/31/19 Rx Ertapenem [INVanz] 1 gm IVPB DAILY@1500 03/31/19 03/31/19 History Isosorbide Mononitrate ER [Imdur] 30 mg PO HS@2100 03/31/19 03/31/19 History hydrALAZINE HCL [Apresoline] 50 mg PO BID@0900,2100 03/31/19 03/31/19 History Allergies Allergy/AdvReac Type Severity Reaction Status Date / Time ciprofloxacin [From Cipro] Allergy Unknown Verified 03/31/19 22:35 codeine Allergy Unknown Verified 03/31/19 22:35 morphine Allergy Unknown Verified 03/31/19 22:35 Penicillins Allergy Rash/Hives Verified 03/31/19 22:35 shellfish derived [Shellfish] Allergy Unknown Verified 03/31/19 22:35 strawberry Allergy Unknown Verified 03/31/19 22:35 Sulfa (Sulfonamide Allergy Rash/Hives Verified 03/31/19 22:35 Antibiotics) Physical Exam Vitals: Vital Signs Temp Pulse Pulse Resp BP BP Pulse Ox 04/01/19 07:34 97.6 F 64 16 115/61 95 04/01/19 06:41 112/64 04/01/19 03:36 97.6 F 67 16 194/91 95 04/01/19 02:18 60 18 152/84 95 04/01/19 02:07 63 18 186/100 97 04/01/19 00:37 64 18 195/106 96 03/31/19 23:36 97.5 F L 60 18 182/99 98 03/31/19 22:13 94.6 F L 60 18 198/103 98 Intake and Output 03/31/19 04/01/19 04/01/19 22:59 06:59 14:59 Output Total 1000 Balance -1000 Output: Urine 1000 Other: Voiding Method Self-Catheterization Self-Catheterization Weight 63.503 kg PHYSICAL EXAMINATION: HEENT: Head is atraumatic, normocephalic. Pupils equal, round. Neck is supple. There is no elevated jugular venous pressure. HEART EXAMINATION: Heart sounds regular, S1 and S2 soft systolic murmur. CHEST EXAMINATION: Lungs are clear to auscultation and precussion. No chest wall tenderness is noted on palpation or with deep breathing. ABDOMEN: Soft, nontender. Bowel sounds are heard. No organomegaly noted. EXTREMITIES: 2+ peripheral pulses with no evidence of peripheral edema and no calf tenderness noted. NEUROLOGIC patient is awake, alert and oriented x3 with some short-term memory loss noted. Results 03/31/19 22:16 03/31/19 22:16 Cardiac Enzymes 03/31/19 03/31/19 04/01/19 Range/Units 22:16 22:16 04:03 AST 33 (14-36) U/L Troponin I <0.012 0.013 (0.000-0.034) ng/mL Coagulation 03/31/19 Range/Units 22:16 PT 9.8 (9.0-12.0) sec APTT 28.0 (22.0-30.0) sec CBC 03/31/19 Range/Units 22:16 WBC 6.1 (3.8-10.6) k/uL RBC 3.77 L (3.80-5.40) m/uL Hgb 11.7 (11.4-16.0) gm/dL Hct 35.8 (34.0-46.0) % Plt Count 258 (150-450) k/uL Comprehensive Metabolic Panel 03/31/19 Range/Units 22:16 Sodium 134 L (137-145) mmol/L Potassium 5.5 H (3.5-5.1) mmol/L Chloride 98 (98-107) mmol/L Carbon Dioxide 28 (22-30) mmol/L BUN 27 H (7-17) mg/dL Creatinine 0.75 (0.52-1.04) mg/dL Glucose 120 H (74-99) mg/dL Calcium 10.2 (8.4-10.2) mg/dL AST 33 (14-36) U/L ALT 30 (9-52) U/L Alkaline Phosphatase 114 (38-126) U/L Total Protein 6.8 (6.3-8.2) g/dL Albumin 3.9 (3.5-5.0) g/dL Current Medications Generic Name Dose Route Start Last Admin Trade Name Freq PRN Reason Stop Dose Admin Acetaminophen 650 mg 04/01/19 08:01 Tylenol Tab PO Q6H PRN Mild Pain Aspirin 325 mg 04/01/19 09:00 Aspirin PO DAILY@0900 [facility] Atenolol 100 mg 04/01/19 09:00 Tenormin PO DAILY@0900 [facility] Atorvastatin Calcium 10 mg 04/01/19 21:00 Lipitor PO HS@2100 [facility] Calcium Carbonate/Glycine 500 mg 04/01/19 09:00 Tums PO BID@0900,1700 [facility] Famotidine 20 mg 04/01/19 21:00 Pepcid PO BID@0600,2100 [facility] Furosemide 20 mg 04/01/19 08:30 Lasix PO DAILY@0600 [facility] Gabapentin 200 mg 04/01/19 13:00 Neurontin PO TID@0600,1300,2100 [facility] Hydralazine HCl 50 mg 04/01/19 04:30 04/01/19 04:51 Apresoline PO 50 mg TID [facility] Administration Ertapenem 1 gm/ Sodium 50 mls @ 100 mls/hr 04/01/19 09:00 Chloride IVPB 04/07/19 23:00 DAILY [facility] Isosorbide Mononitrate 30 mg 04/01/19 21:00 Imdur PO HS@2100 [facility] Levothyroxine Sodium 75 mcg 04/02/19 06:00 Synthroid PO DAILY@0600 [facility] Loratadine 10 mg 04/01/19 09:00 Claritin PO DAILY@0900 [facility] Melatonin 6 mg 04/01/19 21:00 Melatonin PO HS [facility] Meloxicam 7.5 mg 04/01/19 09:00 Mobic PO DAILY@0900 [facility] Multivitamins 1 each 04/01/19 09:00 Theragran PO DAILY@0900 [facility] Nitroglycerin 0.4 mg 04/01/19 01:27 04/01/19 02:04 Nitrostat SUBLINGUAL 0.4 mg Q5M PRN Administration Chest Pain Potassium Chloride 20 meq 04/01/19 09:00 04/01/19 09:02 K-Dur 20 PO Not Given BID@0900,1700 DANA Sertraline HCl 50 mg 04/01/19 09:00 Zoloft PO DAILY@0900 DANA Intake and Output 03/31/19 04/01/19 04/01/19 22:59 06:59 14:59 Output Total 1000 Balance -1000 Output: Urine 1000 Other: Voiding Method Self-Catheterization Self-Catheterization Weight 63.503 kg 03/31/19 22:16 03/31/19 22:16 EKG Interpretations (text) Sinus rhythm with first-degree AV block Assessment and Plan Assessment: #1 symptom of dizziness and possible bandlike pressure around the upper abdomen lower chest #2 hypertension #3 weakness and fatigue #4 hyperlipidemia #5 hypothyroidism Plan: From cardiology's perspective, we will review 2-D echo ordered by primary. If there is no change from previous echocardiogram no further cardiac workup at this time. Will follow the patient on an as-needed basis. Please do not hesitate to contact us with questions. NEWS CORRESPONDENT note has been reviewed, I agree with a documented findings and plan of care. Patient was seen and examined.
--- NOTE | 2019-04-01 10:00 | ECHOF ---
Referral Reason:chest pain MEASUREMENTS -------- HEIGHT: 170.2 cm WEIGHT: 63.5 kg BP: IVSd: 1.4 cm (0.6 - 1.1) LVIDd: 2.9 cm (3.9 - 5.3) LVPWd: 1.4 cm (0.6 - 1.1) IVSs: 1.6 cm LVIDs: 1.8 cm LVPWs: 2.1 cm LAESV Index (A-L): 45.10 ml/m Ao Diam: 3.5 cm (2.0 - 3.7) AV Cusp: 1.4 cm (1.5 - 2.6) LA Diam: 2.6 cm (2.7 - 3.8) MV EXCURSION: 11.800 mm (> 18.000) MV EF SLOPE: 50 mm/s (70 - 150) EPSS: 0.5 cm MV E George: 1.08 m/s MV DecT: 164 ms MV A George: 1.10 m/s MV E/A Ratio: 0.98 AR PHT: 825 ms RAP: 5.00 mmHg RVSP: 45.24 mmHg FINDINGS -------- Sinus rhythm. This was a technically good study. The left ventricular size is normal. There is moderate concentric left ventricular hypertrophy. O verall left ventricular systolic function is normal with, an EF between 55 - 60 %. Increased LAP Gr verena 2 Diastolic Dysfunction. The right ventricle is normal in size. LA is severely dilated >40 ml/m2 The right atrial size is normal. Interatrial and interventricular septum intact. Aortic valve is trileaflet and is mildly thickened. There is mild aortic regurgitation. The mitral valve is normal. The mitral valve leaflets are mildly thickened. Mild mitral regurgita tion is present. Moderate tricuspid regurgitation present. There is mild pulmonary hypertension. The right ventric ular systolic pressure, as measured by Doppler, is 45.24mmHg. There is no pulmonic regurgitation present. The aortic root size is normal. Normal inferior vena cava with normal inspiratory collapse consistent with estimated right atrial pre ssure of 5 mmHg. There is no pericardial effusion. CONCLUSIONS -------- 1. Sinus rhythm. 2. This was a technically good study. 3. The left ventricular size is normal. 4. There is moderate concentric left ventricular hypertrophy. 5. Overall left ventricular systolic function is normal with, an EF between 55 - 60 %. 6. Increased LAP Grade 2 Diastolic Dysfunction. 7. The right ventricle is normal in size. 8. LA is severely dilated >40 ml/m2 9. The right atrial size is normal. 10. Interatrial and interventricular septum intact. 11. Aortic valve is trileaflet and is mildly thickened. 12. There is mild aortic regurgitation. 13. The mitral valve is normal. 14. The mitral valve leaflets are mildly thickened. 15. Mild mitral regurgitation is present. 16. Moderate tricuspid regurgitation present. 17. There is mild pulmonary hypertension. 18. The right ventricular systolic pressure, as measured by Doppler, is 45.24mmHg. 19. There is no pulmonic regurgitation present. 20. The aortic root size is normal. 21. Normal inferior vena cava with normal inspiratory collapse consistent with estimated right atrial pressure of 5 mmHg. 22. There is no pericardial effusion. PLANT MECHANIC: Susan Forrest RDCS
[2019-04-01] MEDS ORDERED: MECLIZINE 12.5 MG TAB PO PRN (11:54)
[2019-04-01] MEDS ORDERED: FLUTICASONE 50MCG/SPRAY NASAL 16GM EA NOSTRIL SCH (12:00)
[2019-04-01] MEDS ORDERED: GABAPENTIN 100 MG CAP PO SCH (13:00)
--- NOTE | 2019-04-01 13:28 | P.DS ---
Providers Date of admission: 04/01/19 01:27 Expected date of discharge: 04/01/19 Attending physician: Lynn Harris Consults: 04/01/19 01:27 Consult Physician Urgent Consulting Provider: [facility] Consult Reason/Comments: chest pain, htn Do you want consulting provider notified?: Yes, Notify in am 04/01/19 04:18 Consult Physician Routine Consulting Provider: Maurice Murrieta Consult Reason/Comments: Recent UTI Do you want consulting provider notified?: Yes, Notify in am 04/01/19 11:51 Consult Physician Routine Consulting Provider: Kirsten Harp Consult Reason/Comments: brain aneursym Do you want consulting provider notified?: Yes 04/01/19 11:58 Consult Physician Routine Consulting Provider: Dereje Brito Consult Reason/Comments: ESBL on Invanz at [facility] Do you want consulting provider notified?: Yes Primary care physician: Lynn Harris [facility] Hospital Course: This is an 83-year-old female patient of Dr. Harris long-term resident at [facility] with history of hypertension, hyperlipidemia, lower extremity paraplegia non-ambulatory, neurogenic bladder, hospitalization in January 2019 for non-ST elevated myocardial infarction along, frequent urinary tract infections with [id number] organisms requiring IV antibiotics. The patient has been on a bladder training regime at the intermediate and requires 3 person assist to a commode chair. Patient gives history of 2 recent falls and for one of those she came into the emergency center on March [address] of the head and C-spine and x-rays of the right hip which were all negative for acute findings. Patient was transferred back to the intermediate. On March 19, urinalysis was sent was found to have leukoesterase large, wbc's 151, bacteria many. Patient was given 1 dose of Invanz on March 23. She has a midline placed in the left arm and she started a course of Invanz on March 26 as the urine culture came back positive for ESBL E. coli. Yesterday, patient states that she got up in the morning was feeling quite dizzy in the room was spinning. In general she was not feeling her normal self. She did complain of abdominal pain/chest pain as a band across the upper abdomen lower chest. She was having some confusion yesterday. Patient was not acting like herself, not eating or drinking.. Patient has had ongoing problems with urinary retention and she states that she was not able to urinate all day yesterday and Rodriguez catheter was placed last evening. Patient was transferred to [facility] emergency center for evaluation. She was found to be hypertensive up to 198/103. Patient was given Nitropaste and 2 L of IV fluid. Sodium was 134, potassium 5.5, troponin 0.012 and 0.013. Urinalysis was clear with leukoesterase small, bacteria rare. Chest x-ray positive for congestive heart failure. CAT scan of the brain showed a direct related atrophy and small vessel ischemic changes. There is a 0.7 cm aneurysm arising from the [place] of [place]. 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 CT angiogram of the neck revealed no significant stenosis left or right common or internal carotid arteries. Unremarkable appearance of the vertebral arteries. Patient was admitted to the selective care unit, resumed on her home medications and consult requested with infectious disease and cardiology. Echocardiogram has been ordered. Blood cultures status received. Blood pressure is improved this morning at 145/82, pulse ox is 100% on room air, heart rate in the 50s and 60s, afebrile. nerve specialist has been a sinus rhythm. Patient has been seen by Dr. Harp and he is also recommended MRI of the brain which has been ordered as an outpatient. He suggested outpatient neurosurgical consultation to review images. Continue conservative management, continue aspirin, statin therapy, blood pressure goal of of less than 130/80. He patient has been cleared for discharge by neurology. Dr. Brito is recommending continuing course of Fortaz until completed. Patient is cleared for discharge back to [facility]. Discharge diagnoses: 1. 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 2. Chest pain, noncardiac. 3. ESBL E. coli UTI, probable catheter associated due to history of urinary retention, under treatment with midline placement in the left arm and Invanz since March 26. 4. Brain aneurysm, known. Patient has MRI of the brain scheduled as an outpatient that was arranged by the intermediate. 5. Recent non-ST elevated myocardial infarction January 2019. 6. Frequent falls, CAT scan of the brain, CAT scan of the cervical spine and right hip all negative for acute findings. 7. History of closed head injury with laceration to the right orbit January 13. 8. History of Proteus multidrug resistant UTI, completed treatment in January. 9. Hypertension, uncontrolled. 10. Neurogenic bladder with urinary retention. Rodriguez catheter has been plac ed. 11. Lower extremity paraplegia, patient is normally bed bound/wheelchair bound 12. Gastroesophageal reflux disease 13. Hypothyroidism. 14. Recurrent depression. Discharge plan: Return to [facility] under the care of Dr. Harris. Impression and plan of care have been directed as dictated by the signing physician. Monika Saldivar nurse practitioner acting as scribe for signing physici an. Patient Condition at Discharge: Good Plan - Discharge Summary Discharge Rx Participant: Yes New Discharge Prescriptions: New Meclizine [Antivert] 12.5 mg PO BID PRN tab PRN Reason: Vertigo predniSONE 0 mg PO DIRECTED #30 tab Continue Ranitidine HCl [Zantac] 150 mg PO BID@0600,2100 Acetaminophen Tab [Tylenol] 650 mg PO Q6H PRN PRN Reason: Pain Potassium Chloride ER [K-Dur 20] 20 meq PO BID@0900,1700 Calcium Carbonate/Vitamin D3 [Calcium 600-Vit D3 400 Caplet] 1 tab PO BID@0900,1700 Sertraline [Zoloft] 50 mg PO DAILY@0900 Multivitamins, Thera [Multivitamin (formulary)] 1 tab PO DAILY@0900 Lovastatin [Altoprev] 40 mg PO HS@2100 Levothyroxine Sodium [Synthroid] 75 mcg PO DAILY@0600 Furosemide [Lasix] 20 mg PO DAILY@0600 Fexofenadine HCl 60 mg PO DAILY@0900 Ferrous Sulfate [Iron (65 MG Elemental)] 325 mg PO DAILY@0600 Celecoxib [CeleBREX] 200 mg PO DAILY@0900 Atenolol 100 mg PO DAILY@0900 Aspirin EC [Ecotrin] 325 mg PO DAILY@0900 Melatonin 6 mg PO HS tablet hydrALAZINE HCL [Apresoline] 50 mg PO BID@0900,2100 Isosorbide Mononitrate ER [Imdur] 30 mg PO HS@2100 Ertapenem [INVanz] 1 gm IVPB DAILY@1500 Gabapentin [Neurontin] 200 mg PO TID@0600,1300,2100 #9 cap Discharge Medication List Ranitidine HCl [Zantac] 150 mg PO BID@0600,2100 08/23/17 [History] Acetaminophen Tab [Tylenol] 650 mg PO Q6H PRN 01/16/19 [History] Aspirin EC [Ecotrin] 325 mg PO DAILY@89901/16/19 [History] Atenolol 100 mg PO DAILY@89901/16/19 [History] Calcium Carbonate/Vitamin D3 [Calcium 600-Vit D3 400 Caplet] 1 tab PO BID@0900,1700 01/16/19 [History] Celecoxib [CeleBREX] 200 mg PO DAILY@89901/16/19 [History] Ferrous Sulfate [Iron (65 MG Elemental)] 325 mg PO DAILY@59901/16/19 [History] Fexofenadine HCl 60 mg PO DAILY@89901/16/19 [History] Furosemide [Lasix] 20 mg PO DAILY@59901/16/19 [History] Levothyroxine Sodium [Synthroid] 75 mcg PO DAILY@59901/16/19 [History] Lovastatin [Altoprev] 40 mg PO HS@209901/16/19 [History] Multivitamins, Thera [Multivitamin (formulary)] 1 tab PO DAILY@89901/16/19 [History] Potassium Chloride ER [K-Dur 20] 20 meq PO BID@0900,1700 01/16/19 [History] Sertraline [Zoloft] 50 mg PO DAILY@89901/16/19 [History] Melatonin 6 mg PO HS tablet 01/18/19 [Rx] Ertapenem [INVanz] 1 gm IVPB DAILY@1500 03/31/19 [History] Isosorbide Mononitrate ER [Imdur] 30 mg PO HS@209903/31/19 [History] hydrALAZINE HCL [Apresoline] 50 mg PO BID@0900,2100 03/31/19 [History] Gabapentin [Neurontin] 200 mg PO TID@0600,1300,2100 #9 cap 04/01/19 [Rx] Meclizine [Antivert] 12.5 mg PO BID PRN tab 04/01/19 [Rx] predniSONE 0 mg PO DIRECTED #30 tab 04/01/19 [Rx] Follow up Appointment(s)/Referral(s): Lynn Harris MD [Primary Care Provider] - 1-2 days Discharge Disposition: TRANSFER TO SNF/ECF
[2019-04-01] MEDS ORDERED: ERTAPENEM 1 GM VIAL IVPB SCH (15:00)
[2019-04-01 15:07] VITALS: BP 113/64; PULSE 58; RESP 14; TEMP 98
--- NOTE | 2019-04-01 15:21 | US ---
EXAMINATION TYPE: US kidneys/renal and bladder DATE OF EXAM: 04/01/2019 COMPARISON: NONE CLINICAL HISTORY: 83-year-old female frequent UTIs. TECHNIQUE: Multiple sonographic images of the kidneys and bladder are obtained. FINDINGS: EXAM MEASUREMENTS: Right Kidney: 8.9 x 4.2 x 4.6 cm Left Kidney: 9.0 x 3.3 x 3.8 cm Right Kidney: No hydronephrosis, measures slightly small Left Kidney: No hydronephrosis, measures comparable to right Bladder: not distended, blake, not seen IMPRESSION: 1. No hydronephrosis. 2. Blake catheter in place decompressing the bladder.
--- NOTE | 2019-04-01 15:27 | P.CNNES ---
History of Present Illness Consult date: 04/01/19 Requesting physician: Monika Saldivar Reason for Consult: Brain aneurysm Chief complaint: Brain aneurysm History of Present Illness: This is an 83 RH female patient of Dr. Harris long-term resident at [facility] with history of hypertension, hyperlipidemia, lower extremity paraplegia wheelchair bound, neurogenic bladder s/p NSTEMI and multi-drug resistant UTI in 01/2019. She has had multiple falls. In fact, she sustained a CHI with laceration to the right orbit on 01/13/19. She had two recent falls and presented to the ER on 03/28/[address] of the head and C-spine and x-rays of the right hip, all negative. The day prior to this admission, patient got up in the morning and felt dizzy with a room-spinning sensation. She also c/o a band-like CP and abdominal pain. She was also noted to be confused and was found to have elevated BP 198/103. CT head showed global atrophy, no ICH or anything acute. 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 CTA Neck is unrevealing. Her confusion has improved. Plan is to discharge back to SNF in am. Meanwhile, neurology was kindly consulted for finding of cerebral aneurysm. Patient denies any current severe headache, changes in vision/hearing, facial droop, dysarthria, dysphagia, aphasia, new focal numbness/weakness (she has baseline paraplegia) or bowel/bladder incontinence. She does have a urinary Rodriguez catheter in place. No h/o tobacco use or cystic kidney disease. Review of Systems I have performed a 14-point organ ROS with patient; pertinents are as per HPI. Past Medical History Past Medical History: CVA/TIA, GERD/Reflux, Hyperlipidemia, Hypertension, Osteoarthritis (OA) Additional Past Medical History / Comment(s): uti, leg atrophy, past blood clot after back sx. self caths for over 40 years,RECENT FALL @ [facility], SUTURES TO R FOREHEAD AND STERI STRIPS TO LEFT FOREARM. History of Any Multi-Drug Resistant Organisms: ESBL, MRSA Date of last positivie culture/infection: ESBL 03/19/19 MRSA 03/14/18 MDRO Source:: MRSA / ESBL URINE Past Surgical History: Appendectomy, Back Surgery, Tonsillectomy Additional Past Surgical History / Comment(s): cervical spine sx, cataracts-lens implants Past Anesthesia/Blood Transfusion Reactions: Postoperative Nausea & Vomiting (PONV) Additional Past Anesthesia/Blood Transfusion Reaction / Comment(s): past blood transfusion-no reaction Past Psychological History: Depression Additional Psychological History / Comment(s): PT CURRENTLY LIVES AT [facility] ON [facility]. Smoking Status: Never smoker Past Alcohol Use History: Occasional Past Drug Use History: None Reported - Past Family History Mother History Unknown: Yes Additional Family Medical History / Comment(s): mom in her sleep, unk cause Father Family Medical History: Myocardial Infarction ([place]) Medications and Allergies Home Medications Medication Instructions Recorded Confirmed Type Ranitidine HCl [Zantac] 150 mg PO BID@0600,209908/23/17 03/31/19 History Acetaminophen Tab [Tylenol] 650 mg PO Q6H PRN 01/16/19 03/31/19 History Aspirin EC [Ecotrin] 325 mg PO DAILY@89901/16/19 03/31/19 History Atenolol 100 mg PO DAILY@89901/16/19 03/31/19 History Calcium Carbonate/Vitamin D3 1 tab PO BID@0900,1700 01/16/19 03/31/19 History [Calcium 600-Vit D3 400 Caplet] Celecoxib [CeleBREX] 200 mg PO DAILY@89901/16/19 03/31/19 History Ferrous Sulfate [Iron (65 MG 325 mg PO DAILY@59901/16/19 03/31/19 History Elemental)] Fexofenadine HCl 60 mg PO DAILY@89901/16/19 03/31/19 History Furosemide [Lasix] 20 mg PO DAILY@59901/16/19 03/31/19 History Gabapentin [Neurontin] 200 mg PO TID@0600,1300,209901/16/19 03/31/19 History Levothyroxine Sodium [Synthroid] 75 mcg PO DAILY@59901/16/19 03/31/19 History Lovastatin [Altoprev] 40 mg PO HS@209901/16/19 03/31/19 History Multivitamins, Thera [Multivitamin 1 tab PO DAILY@0900 01/16/19 03/31/19 History (formulary)] Potassium Chloride ER [K-Dur 20] 20 meq PO BID@0900,1700 01/16/19 03/31/19 History Sertraline [Zoloft] 50 mg PO DAILY@0900 01/16/19 03/31/19 History Melatonin 6 mg PO HS tablet 01/18/19 03/31/19 Rx Ertapenem [INVanz] 1 gm IVPB DAILY@1500 03/31/19 03/31/19 History Isosorbide Mononitrate ER [Imdur] 30 mg PO HS@2100 03/31/19 03/31/19 History hydrALAZINE HCL [Apresoline] 50 mg PO BID@0900,2100 03/31/19 03/31/19 History Allergies Allergy/AdvReac Type Severity Reaction Status Date / Time ciprofloxacin [From Cipro] Allergy Unknown Verified 03/31/19 22:35 codeine Allergy Unknown Verified 03/31/19 22:35 morphine Allergy Unknown Verified 03/31/19 22:35 Penicillins Allergy Rash/Hives Verified 03/31/19 22:35 shellfish derived [Shellfish] Allergy Unknown Verified 03/31/19 22:35 strawberry Allergy Unknown Verified 03/31/19 22:35 Sulfa (Sulfonamide Allergy Rash/Hives Verified 03/31/19 22:35 Antibiotics) Physical Examination - Vital Signs Vital Signs: Vital Signs Temp Pulse Pulse Resp BP BP Pulse Ox 04/01/19 11:50 97.4 F L 60 18 125/69 95 04/01/19 09:15 60 18 04/01/19 07:34 97.6 F 64 16 115/61 95 04/01/19 06:41 112/64 04/01/19 03:36 97.6 F 67 16 194/91 95 04/01/19 02:18 60 18 152/84 95 04/01/19 02:07 63 18 186/100 97 04/01/19 00:37 64 18 195/106 96 03/31/19 23:36 97.5 F L 60 18 182/99 98 03/31/19 22:13 94.6 F L 60 18 198/103 98 Intake and Output 03/31/19 04/01/19 04/01/19 22:59 06:59 14:59 Intake Total 250 Output Total 1000 600 Balance -1000 -350 Intake: IV 50 Ertapenem 1 gm In Sodium 50 Chloride 0.9% 50 ml @ 100 mls/hr IVPB DAILY [facility] Rx #:[id number] Oral 200 Output: Urine 1000 600 Other: Voiding Method Self-Catheterization Self-Catheterization Weight 63.503 kg Gen NAD Pleasant and cooperative HEENT Ecchymosis in forehead no active bleeding Sclera without icterus O/P clear Neck Supple No carotid bruit Cor RRR no m/r/g Lungs CTAB Abd Soft NTND +BS Ext Warm to touch MS A+Ox2 Normal fluency Able to follow all basic commands CN II-XII grossly intact no nystagmus Motor Normal bulk Increased tone in BLE No tremors Strength 5/5 BUE 0/5 BLE Sens Intact to LT x4 Coord No dysmetria on FTN bilaterally DTRs 2+/4 sym BUE 0/4 Toes mute bilaterally Gait Cannot test due to paraplegia Results - Laboratory Findings CBC and BMP: 03/31/19 22:16 03/31/19 22:16 Abnormal Lab Findings: Abnormal Labs 03/31/19 03/31/19 04/01/19 22:16 22:16 01:06 RBC 3.77 L Sodium 134 L Potassium 5.5 H BUN 27 H Glucose 120 H Urine Appearance Ur Leukocyte Esterase Small H Urine Bacteria Rare H Urine Mucus 04/01/19 05:30 RBC Sodium Potassium BUN Glucose Urine Appearance Cloudy H Ur Leukocyte Esterase Trace H Urine Bacteria Urine Mucus Rare H - Diagnostic Findings Additional findings: CT Head wo cont 03/31/19. Global atrophy. Small vessel disease. No ICH. 7mm acomm aneurysm. Nil acute. CTA Head/Neck 03/31/19. 7x5.2mm acomm aneurysm. No extracranial vascular stenosis or LVO. I have reviewed neuroimages myself. Assessment and Plan Assessment: Acomm aneurysm, unruptured. Plan: -MRI Brain already ordered for outpatient -Would suggest outpatient neurosurgical consultation to review images -Advise conservative management in the meantime -For the possibility of [id number] phenomenon, she is already on aspirin, so no new change in management is recommended -Statin therapy -BP goal <130/80 -d/w patient and family at bedside in detail. All questions answered -Stable for discharge from acute neuro standpoint. Please call with new ?. Thank you for this consultation. Time with Patient: Greater than 30 (Time spent in direct patient care, greater than 50% of which was spent in [id number] counseling and coordination of care: 70 minutes)
[2019-04-01] MEDS ORDERED: FAMOTIDINE 20 MG TAB PO SCH (21:00)
[2019-04-01] MEDS ORDERED: MELATONIN 3 MG TABLET PO SCH (21:00)
[2019-04-01] MEDS ORDERED: ATORVASTATIN 10 MG TAB PO SCH (21:00)
[2019-04-01] MEDS ORDERED: ISOSORBIDE MONONITRATE ER 30 MG TAB.ER.24H PO SCH (21:00)
[2019-04-02] MEDS ORDERED: LEVOTHYROXINE 75 MCG TAB PO SCH (06:00)
[2019-04-02] MEDS ORDERED: ASPIRIN 325 MG TAB PO SCH (09:00)
--- NOTE | 2019-04-03 16:45 | P.CONS ---
History of Present Illness - Reason for Consult Consult date: 04/01/19 ESBL E. coli urinary tract infection Requesting physician: Lynn Harris - Chief Complaint Dizziness and weakness x few days - History of Present Illness Patient is 83-year-old female with a past medical history significant for recurrent urinary tract infection a [facility] resident in this patient who has been diagnosed with ESBL E. coli urinary tract infection and is currently getting Invanz 1 g IV piggyback daily at the [facility] has received about 7 day course for another daughter provided most of the history, patient has been sent to the ER for evaluation of hallucination weakness and restlessness and the parent restarted due to before the patient was sent back to the ER at [facility] patient apparently was not acting herself and not eating or drinking patient was unable to urinate and a Rodriguez catheter was placed, patient did have one low temperature of 94 otherwise patient has been afebrile her white count has been normal urine not significantly positive ID was consulted for further recommendation regarding antibiotic therapy, patient is feeling better since she has been admitted to the hospital normal hallucination has been noticed no headache no nausea no vomiting no problem pain and no diarrhea Review of Systems Positive point has been mentioned in the HPI rest of the systems are negative Past Medical History Past Medical History: CVA/TIA, GERD/Reflux, Hyperlipidemia, Hypertension, Osteoarthritis (OA) Additional Past Medical History / Comment(s): uti, leg atrophy, past blood clot after back sx. self caths for over 40 years,RECENT FALL @ [facility], SUTURES TO R FOREHEAD AND STERI STRIPS TO LEFT FOREARM. History of Any Multi-Drug Resistant Organisms: ESBL, MRSA Year Discovered:: ESBL 03/19/19 MRSA 03/14/18 MDRO Source:: MRSA / ESBL URINE Past Surgical History: Appendectomy, Back Surgery, Tonsillectomy Additional Past Surgical History / Comment(s): cervical spine sx, cataracts-lens implants Past Anesthesia/Blood Transfusion Reactions: Postoperative Nausea & Vomiting (PONV) Additional Past Anesthesia/Blood Transfusion Reaction / Comm: past blood transfusion-no reaction Past Psychological History: Depression Additional Psychological History / Comment(s): PT CURRENTLY LIVES AT [facility]. Smoking Status: Never smoker Past Alcohol Use History: Occasional Past Drug Use History: None Reported - Past Family History Mother History Unknown: Yes Additional Family Medical History / Comment(s): mom in her sleep, unk cause Father Family Medical History: Myocardial Infarction ([place]) Medications and Allergies Home Medications Medication Instructions Recorded Confirmed Type Ranitidine HCl [Zantac] 150 mg PO BID@0600,209908/23/17 03/31/19 History Acetaminophen Tab [Tylenol] 650 mg PO Q6H PRN 01/16/19 03/31/19 History Aspirin EC [Ecotrin] 325 mg PO DAILY@0901/16/19 03/31/19 History Atenolol 100 mg PO DAILY@89901/16/19 03/31/19 History Calcium Carbonate/Vitamin D3 1 tab PO BID@0900,1700 01/16/19 03/31/19 History [Calcium 600-Vit D3 400 Caplet] Celecoxib [CeleBREX] 200 mg PO DAILY@89901/16/19 03/31/19 History Ferrous Sulfate [Iron (65 MG 325 mg PO DAILY@59901/16/19 03/31/19 History Elemental)] Fexofenadine HCl 60 mg PO DAILY@0901/16/19 03/31/19 History Furosemide [Lasix] 20 mg PO DAILY@59901/16/19 03/31/19 History Levothyroxine Sodium [Synthroid] 75 mcg PO DAILY@59901/16/19 03/31/19 History Lovastatin [Altoprev] 40 mg PO HS@209901/16/19 03/31/19 History Multivitamins, Thera [Multivitamin 1 tab PO DAILY@0901/16/19 03/31/19 History (formulary)] Potassium Chloride ER [K-Dur 20] 20 meq PO BID@0900,1700 01/16/19 03/31/19 History Sertraline [Zoloft] 50 mg PO DAILY@0900 01/16/19 03/31/19 History Melatonin 6 mg PO HS tablet 01/18/19 03/31/19 Rx Ertapenem [INVanz] 1 gm IVPB DAILY@1500 03/31/19 03/31/19 History Isosorbide Mononitrate ER [Imdur] 30 mg PO HS@209903/31/19 03/31/19 History hydrALAZINE HCL [Apresoline] 50 mg PO BID@0900,209903/31/19 03/31/19 History Gabapentin [Neurontin] 200 mg PO TID@0600,1300,2100 #9 cap 04/01/19 Rx Meclizine [Antivert] 12.5 mg PO BID PRN tab 04/01/19 Rx predniSONE 0 mg PO DIRECTED #30 tab 04/01/19 Rx Allergies Allergy/AdvReac Type Severity Reaction Status Date / Time ciprofloxacin [From Cipro] Allergy Unknown Verified 03/31/19 22:35 codeine Allergy Unknown Verified 03/31/19 22:35 morphine Allergy Unknown Verified 03/31/19 22:35 Penicillins Allergy Rash/Hives Verified 03/31/19 22:35 shellfish derived [Shellfish] Allergy Unknown Verified 03/31/19 22:35 strawberry Allergy Unknown Verified 03/31/19 22:35 Sulfa (Sulfonamide Allergy Rash/Hives Verified 03/31/19 22:35 Antibiotics) Physical Exam Vitals: Vital Signs Temp Pulse Pulse Resp BP BP Pulse Ox 04/01/19 11:50 97.4 F L 60 18 125/69 95 04/01/19 09:15 60 18 04/01/19 07:34 97.6 F 64 16 115/61 95 04/01/19 06:41 112/64 04/01/19 03:36 97.6 F 67 16 194/91 95 04/01/19 02:18 60 18 152/84 95 04/01/19 02:07 63 18 186/100 97 04/01/19 00:37 64 18 195/106 96 03/31/19 23:36 97.5 F L 60 18 182/99 98 03/31/19 22:13 94.6 F L 60 18 198/103 98 Intake and Output 03/31/19 04/01/19 04/01/19 22:59 06:59 14:59 Intake Total 250 Output Total 1000 600 Balance -1000 -350 Intake: IV 50 Ertapenem 1 gm In Sodium 50 Chloride 0.9% 50 ml @ 100 mls/hr IVPB DAILY [facility] Rx #:[id number] Oral 200 Output: Urine 1000 600 Other: Voiding Method Self-Catheterization Self-Catheterization Weight 63.503 kg GENERAL DESCRIPTION: Elderly female lying in bed, no distress. No tachypnea or accessory muscle of respiration use. HEENT: Shows Pallor , no scleral icterus. Oral mucous membrane is dry. No pharyngeal erythema or thrush NECK: Trachea central, no thyromegaly. LUNGS: Unlabored breathing. Clear to auscultation anteriorly. No wheeze or crackle. HEART: S1, S2, regular rate and rhythm. No loud murmur ABDOMEN: Soft, no tenderness , guarding or rigidity, no organomegaly EXTREMITIES: No edema of feet. SKIN: No rash, no masses palpable. NEUROLOGICAL: The patient is awake, alert, oriented x3, mood and affect normal. Results CBC & Chem 7: 03/31/19 22:16 03/31/19 22:16 Labs: Abnormal Lab Results - Last 24 Hours (Table) 03/31/19 03/31/19 04/01/19 Range/Units 22:16 22:16 01:06 RBC 3.77 L (3.80-5.40) m/uL Sodium 134 L (137-145) mmol/L Potassium 5.5 H (3.5-5.1) mmol/L BUN 27 H (7-17) mg/dL Glucose 120 H (74-99) mg/dL Urine Appearance (Clear) Ur Leukocyte Esterase Small H (Negative) Urine Bacteria Rare H (None) /hpf Urine Mucus (None) /hpf 04/01/19 Range/Units 05:30 RBC (3.80-5.40) m/uL Sodium (137-145) mmol/L Potassium (3.5-5.1) mmol/L BUN (7-17) mg/dL Glucose (74-99) mg/dL Urine Appearance Cloudy H (Clear) Ur Leukocyte Esterase Trace H (Negative) Urine Bacteria (None) /hpf Urine Mucus Rare H (None) /hpf Assessment and Plan Assessment: 1-patient with recurrent urinary tract infection this patient has been diagnosed with ESBL E. coli infection outpatient setting with no evidence of any ba cteremia being admitted to the hospital for dizziness no fever or elevated white count and repeat UA 2 is relatively negative, indicating adequate treatment of underlying urinary tract infection 2-Patient with multiple antibiotic ALLERGIES that would limit the number of antibiotic safe to use Plan: 1-patient will complete her IV Invanz as ordered there is no need for further extension of IV Invanz therapy as a repeat urine is negative 2-patient and daughter has been educated about recurrent UTIs and how to prevent recurrent intrinsic infection in the future We will follow on clinical condition and cultures to further adjust medication if needed Thank you for this consultation will follow this patient with you
== END 2019-04-01 18:38 ==
LOC: EC 21:57 → 3SCARD 04-01 01:27
PROVIDERS: ADMIT Family Medicine; ATTEND Family Medicine
DX: H81.20 Vestibular neuronitis, unspecified ear (principal); R07.89 Other chest pain; I67.1 Cerebral aneurysm, nonruptured; N39.0 Urinary tract infection, site not specified; B96.20 Unspecified Escherichia coli [E. coli] as the cause of diseases classified elsewhere; Z16.12 Extended spectrum beta lactamase (ESBL) resistance; R33.9 Retention of urine, unspecified; I25.2 Old myocardial infarction; G82.20 Paraplegia, unspecified; K21.9 Gastro-esophageal reflux disease without esophagitis; E03.9 Hypothyroidism, unspecified; F33.9 Major depressive disorder, recurrent, unspecified; M19.90 Unspecified osteoarthritis, unspecified site; I44.0 Atrioventricular block, first degree; I11.0 Hypertensive heart disease with heart failure; I50.9 Heart failure, unspecified; N31.9 Neuromuscular dysfunction of bladder, unspecified; E78.5 Hyperlipidemia, unspecified; R29.6 Repeated falls; Z91.81 History of falling; R41.3 Other amnesia; M79.89 Other specified soft tissue disorders; Z87.828 Personal history of other (healed) physical injury and trauma; Z87.440 Personal history of urinary (tract) infections; Z86.73 Personal history of transient ischemic attack (TIA), and cerebral infarction without residual deficits; Z86.14 Personal history of Methicillin resistant Staphylococcus aureus infection; Z86.718 Personal history of other venous thrombosis and embolism; Z86.711 Personal history of pulmonary embolism; Z99.3 Dependence on wheelchair; Z74.01 Bed confinement status; Z79.82 Long term (current) use of aspirin; Z79.899 Other long term (current) drug therapy; Z79.1 Long term (current) use of non-steroidal anti-inflammatories (NSAID); Z79.890 Hormone replacement therapy; Z88.1 Allergy status to other antibiotic agents; Z88.5 Allergy status to narcotic agent; Z88.0 Allergy status to penicillin; Z88.2 Allergy status to sulfonamides; Z91.013 Allergy to seafood; Z91.018 Allergy to other foods; Z82.49 Family history of ischemic heart disease and other diseases of the circulatory system; Z16.24 Resistance to multiple antibiotics
CPT/HCPCS: 96365; 96361 ×2; 99285; 36415; 93306; 97110; 97162; 97165; 80053; 83605; 83690; 83735; 84484 ×2; 85025; 85610; 85730; 81001; 87040; 71046; 76770; 70496; 70450; 70498; G0378; J1335; Q9967; 96372; 96375; 96376

== ENCOUNTER 2019-04-04 10:02 | Emergency (ER) | payer MEDICARE, BC, OTHER ==
[2019-04-04] MEDS ORDERED: SODIUM CHLORIDE 0.9% 1,000 ML IV ONE (10:16)
--- NOTE | 2019-04-04 10:20 | ED ---
General Adult HPI - General Stated complaint: Altered Mental Status Time Seen by Provider: 04/04/19 10:11 Source: patient, RN notes reviewed Limitations: no limitations - History of Present Illness Initial comments: Patient is a pleasant 83-year-old female presenting to the emergency Department with reported altered mental status. Patient states she is unclear why she is here. Patient does not feel confused. The only thing the patient states she may feel confused about his she feels somebody wakes her up and tells her to take pills however there is nothing in the container. Patient reportedly did have a fall 1 week ago. Confusion reportedly started around 24 hours ago. Patient states she is not normally ambulatory secondary to history of dropfoot. No headache. No new areas of weakness. - Related Data Home Medications Medication Instructions Recorded Confirmed Ranitidine HCl [Zantac] 150 mg PO BID@0600,209908/23/17 04/04/19 Acetaminophen Tab [Tylenol] 650 mg PO Q6H PRN 01/16/19 04/04/19 Aspirin EC [Ecotrin] 325 mg PO BID@0900,209901/16/19 04/04/19 Atenolol 100 mg PO DAILY@89901/16/19 04/04/19 Calcium Carbonate/Vitamin D3 1 tab PO BID@0900,169901/16/19 04/04/19 [Calcium 600-Vit D3 400 Caplet] Celecoxib [CeleBREX] 200 mg PO DAILY@89901/16/19 04/04/19 Ferrous Sulfate [Iron (65 MG 325 mg PO DAILY@59901/16/19 04/04/19 Elemental)] Fexofenadine HCl 60 mg PO DAILY@89901/16/19 04/04/19 Furosemide [Lasix] 20 mg PO DAILY@59901/16/19 04/04/19 Levothyroxine Sodium [Synthroid] 75 mcg PO DAILY@59901/16/19 04/04/19 Lovastatin [Altoprev] 40 mg PO HS@209901/16/19 04/04/19 Multivitamins, Thera [Multivitamin 1 tab PO DAILY@89901/16/19 04/04/19 (formulary)] Potassium Chloride ER [K-Dur 20] 20 meq PO BID@0900,1700 01/16/19 04/04/19 Sertraline [Zoloft] 50 mg PO DAILY@0900 01/16/19 04/04/19 Isosorbide Mononitrate ER [Imdur] 30 mg PO HS@2100 03/31/19 04/04/19 hydrALAZINE HCL [Apresoline] 50 mg PO BID@0900,2100 03/31/19 04/04/19 predniSONE See Taper PO DIRECTED 04/04/19 04/04/19 Previous Rx's Medication Instructions Recorded Melatonin 6 mg PO HS tablet 01/18/19 Meclizine [Antivert] 12.5 mg PO BID PRN tab 04/01/19 Allergies Allergy/AdvReac Type Severity Reaction Status Date / Time ciprofloxacin [From Cipro] Allergy Unknown Verified 04/04/19 10:19 codeine Allergy Unknown Verified 04/04/19 10:19 morphine Allergy Unknown Verified 04/04/19 10:19 Penicillins Allergy Rash/Hives Verified 04/04/19 10:19 shellfish derived [Shellfish] Allergy Unknown Verified 04/04/19 10:19 strawberry Allergy Unknown Verified 04/04/19 10:19 Sulfa (Sulfonamide Allergy Rash/Hives Verified 04/04/19 10:19 Antibiotics) Review of Systems ROS Statement: Those systems with pertinent positive or pertinent negative responses have been documented in the HPI. ROS Other: All systems not noted in ROS Statement are negative. Constitutional: Denies: fever Eyes: Denies: eye pain ENT: Denies: ear pain Respiratory: Denies: cough Cardiovascular: Denies: chest pain Endocrine: Denies: fatigue Gastrointestinal: Denies: abdominal pain Genitourinary: Denies: dysuria Musculoskeletal: Denies: back pain Skin: Denies: rash Neurological: Reports: as per HPI. Denies: headache Past Medical History Past Medical History: CVA/TIA, GERD/Reflux, Hyperlipidemia, Hypertension, Osteoarthritis (OA) Additional Past Medical History / Comment(s): uti, leg atrophy, past blood clot after back sx. self caths for over 40 years,RECENT FALL @ [facility], SUTURES TO R FOREHEAD AND STERI STRIPS TO LEFT FOREARM. History of Any Multi-Drug Resistant Organisms: ESBL, MRSA Date of last positivie culture/infection: ESBL 03/19/19 MRSA 03/14/18 MDRO Source:: MRSA / ESBL URINE Past Surgical History: Appendectomy, Back Surgery, Tonsillectomy Additional Past Surgical History / Comment(s): cervical spine sx, cataracts-lens implants Past Anesthesia/Blood Transfusion Reactions: Postoperative Nausea & Vomiting (PONV) Additional Past Anesthesia/Blood Transfusion Reaction / Comment(s): past blood transfusion-no reaction Past Psychological History: Depression Additional Psychological History / Comment(s): PT CURRENTLY LIVES AT [facility]. Smoking Status: Never smoker Past Alcohol Use History: Occasional Past Drug Use History: None Reported - Past Family History Mother History Unknown: Yes Additional Family Medical History / Comment(s): mom in her sleep, unk cause Father Family Medical History: Myocardial Infarction (AL) General Exam Limitations: no limitations General appearance: alert, in no apparent distress Head exam: Present: other (Ecchymosis in the forehead and ocular region) Eye exam: Present: normal appearance, PERRL, EOMI. Absent: conjunctival injection ENT exam: Present: normal oropharynx Neck exam: Present: normal inspection. Absent: tenderness, meningismus Respiratory exam: Present: normal lung sounds bilaterally Cardiovascular Exam: Present: regular rate, normal rhythm GI/Abdominal exam: Present: soft. Absent: tenderness Extremities exam: Present: normal inspection Neurological exam: Present: alert, oriented X3, CN II-XII intact Expanded Neurological exam: Present: protecting the airway Patient oriented to: Present: person, place, time Speech: Present: fluid speech Cranial nerves: EOM's Intact: Normal Motor strength exam: RUE: 5, LUE: 5, RLE: 4 (Patient states is chronic), LLE: 5 Eye Response: (4) open spontaneously Motor Response: (6) obeys commands Verbal Response: (5) oriented Psychiatric exam: Present: normal affect, normal mood Skin exam: Present: normal color Course Vital Signs 04/04/19 10:12 Temperature 97.3 F L Pulse Rate 67 Respiratory 16 Rate Blood Pressure 159/83 O2 Sat by Pulse 99 Oximetry EKG Findings - EKG Comments: EKG Findings:: Sinus rhythm at 67. For screening AV block MD of 228. QRS 108. QT 446. QTc 471. Left axis. Normal QRS. No acute ST change. Medical Decision Making - Medical Decision Making Patient reevaluated and resting comfortably in bed. Patient updated on results and plan. Case discussed with Dr. Prince who does recommend discharge. She states she will discuss the case with Dr. Harris and have troponin rechecked in the half-way. Family is also present and comfortable with discharge. She states patient did have some confusion while in the hospital and believes this is similar to what is occurring at the nursing facility. - Lab Data Result diagrams: 04/04/19 11:19 04/04/19 11:19 Lab Results 04/04/19 04/04/19 04/04/19 Range/Units 11:19 11:19 11:19 WBC 7.3 (3.8-10.6) k/uL RBC 3.41 L (3.80-5.40) m/uL Hgb 10.4 L (11.4-16.0) gm/dL Hct 31.8 L (34.0-46.0) % MCV 93.4 (80.0-100.0) fL MCH 30.5 (25.0-35.0) pg MCHC 32.7 (31.0-37.0) g/dL RDW 16.5 H (11.5-15.5) % Plt Count 249 (150-450) k/uL Neutrophils % 76 % Lymphocytes % 12 % Monocytes % 8 % Eosinophils % 1 % Basophils % 1 % Neutrophils # 5.6 (1.3-7.7) k/uL Lymphocytes # 0.9 L (1.0-4.8) k/uL Monocytes # 0.6 (0-1.0) k/uL Eosinophils # 0.1 (0-0.7) k/uL Basophils # 0.0 (0-0.2) k/uL Anisocytosis Slight PT 10.0 (9.0-12.0) sec INR 0.9 (<1.2) APTT 25.9 (22.0-30.0) sec Sodium 132 L (137-145) mmol/L Potassium 4.6 (3.5-5.1) mmol/L Chloride 99 (98-107) mmol/L Carbon Dioxide 22 (22-30) mmol/L Anion Gap 11 mmol/L BUN 27 H (7-17) mg/dL Creatinine 0.71 (0.52-1.04) mg/dL Est GFR (CKD-EPI)AfAm >90 (>60 ml/min/1.73 sqM) Est GFR (CKD-EPI)NonAf 78 (>60 ml/min/1.73 sqM) Glucose 94 (74-99) mg/dL Calcium 10.1 (8.4-10.2) mg/dL Total Bilirubin 0.4 (0.2-1.3) mg/dL AST 35 (14-36) U/L ALT 32 (9-52) U/L Alkaline Phosphatase 109 (38-126) U/L Troponin I (0.000-0.034) ng/mL Total Protein 7.0 (6.3-8.2) g/dL Albumin 4.0 (3.5-5.0) g/dL Urine Color Urine Appearance (Clear) Urine pH (5.0-8.0) Ur Specific [place] (1.001-1.035) Urine Protein (Negative) Urine Glucose (UA) (Negative) Urine Ketones (Negative) Urine Blood (Negative) Urine Nitrite (Negative) Urine Bilirubin (Negative) Urine Urobilinogen (<2.0) mg/dL Ur Leukocyte Esterase (Negative) Urine RBC (0-5) /hpf Urine WBC (0-5) /hpf Ur Squamous Epith Cells (0-4) /hpf Urine Bacteria (None) /hpf Hyaline Casts (0-2) /lpf Urine Mucus (None) /hpf Urine Opiates Screen (NotDetected) Ur Oxycodone Screen (NotDetected) Urine Methadone Screen (NotDetected) Ur Propoxyphene Screen (NotDetected) Ur Barbiturates Screen (NotDetected) U Tricyclic Antidepress (NotDetected) Ur Phencyclidine Scrn (NotDetected) Ur Amphetamines Screen (NotDetected) U Methamphetamines Scrn (NotDetected) U Benzodiazepines Scrn (NotDetected) Urine Cocaine Screen (NotDetected) U Marijuana (THC) Screen (NotDetected) 04/04/19 04/04/19 04/04/19 Range/Units 11:19 12:37 12:37 WBC (3.8-10.6) k/uL RBC (3.80-5.40) m/uL Hgb (11.4-16.0) gm/dL Hct (34.0-46.0) % MCV (80.0-100.0) fL MCH (25.0-35.0) pg MCHC (31.0-37.0) g/dL RDW (11.5-15.5) % Plt Count (150-450) k/uL Neutrophils % % Lymphocytes % % Monocytes % % Eosinophils % % Basophils % % Neutrophils # (1.3-7.7) k/uL Lymphocytes # (1.0-4.8) k/uL Monocytes # (0-1.0) k/uL Eosinophils # (0-0.7) k/uL Basophils # (0-0.2) k/uL Anisocytosis PT (9.0-12.0) sec INR (<1.2) APTT (22.0-30.0) sec Sodium (137-145) mmol/L Potassium (3.5-5.1) mmol/L Chloride (98-107) mmol/L Carbon Dioxide (22-30) mmol/L Anion Gap mmol/L BUN (7-17) mg/dL Creatinine (0.52-1.04) mg/dL Est GFR (CKD-EPI)AfAm (>60 ml/min/1.73 sqM) Est GFR (CKD-EPI)NonAf (>60 ml/min/1.73 sqM) Glucose (74-99) mg/dL Calcium (8.4-10.2) mg/dL Total Bilirubin (0.2-1.3) mg/dL AST (14-36) U/L ALT (9-52) U/L Alkaline Phosphatase (38-126) U/L Troponin I 0.045 H* (0.000-0.034) ng/mL Total Protein (6.3-8.2) g/dL Albumin (3.5-5.0) g/dL Urine Color Light Yellow Urine Appearance Clear (Clear) Urine pH 6.5 (5.0-8.0) Ur Specific [place] 1.013 (1.001-1.035) Urine Protein Negative (Negative) Urine Glucose (UA) Negative (Negative) Urine Ketones Trace H (Negative) Urine Blood Negative (Negative) Urine Nitrite Negative (Negative) Urine Bilirubin Negative (Negative) Urine Urobilinogen <2.0 (<2.0) mg/dL Ur Leukocyte Esterase Moderate H (Negative) Urine RBC <1 (0-5) /hpf Urine WBC 4 (0-5) /hpf Ur Squamous Epith Cells 2 (0-4) /hpf Urine Bacteria Few H (None) /hpf Hyaline Casts 3 H (0-2) /lpf Urine Mucus Rare H (None) /hpf Urine Opiates Screen Not Detected (NotDetected) Ur Oxycodone Screen Not Detected (NotDetected) Urine Methadone Screen Not Detected (NotDetected) Ur Propoxyphene Screen Not Detected (NotDetected) Ur Barbiturates Screen Not Detected (NotDetected) U Tricyclic Antidepress Not Detected (NotDetected) Ur Phencyclidine Scrn Not Detected (NotDetected) Ur Amphetamines Screen Not Detected (NotDetected) U Methamphetamines Scrn Not Detected (NotDetected) U Benzodiazepines Scrn Not Detected (NotDetected) Urine Cocaine Screen Not Detected (NotDetected) U Marijuana (THC) Screen Not Detected (NotDetected) - Radiology Data Radiology results: report reviewed (Computed tomography scan of the brain shows no intracranial hemorrhage. Unchanged aneurysm.), image reviewed (Chest x-ray shows chronic interstitial prominence) Disposition Clinical Impression: Confusion Disposition: HOME SELF-CARE Condition: Stable Instructions (If sedation given, give patient instructions): Altered Mental Status (ED) Additional Instructions: Please follow-up with primary care physician in the next day or 2 for recheck. Chronic care physician will order repeat blood work, based on results from today. Please have them review results from today. Return for worsening mental status, chest pain, worsening symptoms or other concerns. Is patient prescribed a controlled substance at d/c from ED?: No Referrals: Lynn Harris MD [Primary Care Provider] - 1-2 days Decision Time: 13:52
[2019-04-04 10:24] VITALS: BP 159/83; PULSE 67; RESP 16; TEMP 97.3
[2019-04-04 11:44] LABS: Anisocytosis Slight; Basophils % (A) 1 %; Eosinophils # (A) 0.1 k/uL (0-0.7); Eosinophils % (A) 1 %; HCT 31.8 % (34.0-46.0); HGB 10.4 gm/dL (11.4-16.0); Lymphocytes # (A) 0.9 k/uL (1.0-4.8); Lymphocytes % (A) 12 %; MCH 30.5 pg (25.0-35.0); MCHC 32.7 g/dL (31.0-37.0); MCV 93.4 fL (80.0-100.0); Mean Platelet Volume 7.8; Monocytes # (A) 0.6 k/uL (0-1.0); Monocytes % (A) 8 %; Neutrophils # (A) 5.6 k/uL (1.3-7.7); Neutrophils % (A) 76 %; Platelet Count 249 k/uL (150-450); RBC 3.41 m/uL (3.80-5.40); RDW 16.5 % (11.5-15.5); WBC 7.3 k/uL (3.8-10.6)
[2019-04-04 11:51] LABS: INR 0.9 (<1.2); Partial Thromboplastin Time 25.9 sec (22.0-30.0)
--- NOTE | 2019-04-04 12:06 | XR ---
EXAMINATION TYPE: XR chest 2V DATE OF EXAM: 04/04/2019 COMPARISON: 03/31/2019 HISTORY: Altered mental status TECHNIQUE: Frontal and lateral views of the chest are obtained. FINDINGS: There is pulmonary hyperinflation and flattening of the diaphragms indicative of COPD. Chr onic left hemidiaphragm elevation is seen. Chronic interstitial prominence throughout. No new focal c onsolidation. Cardiomediastinal silhouette is enlarged. Mild degenerative changes of the spine and di ffuse osseous demineralization. IMPRESSION: Chronic interstitial prominence unchanged from the prior. This may relate to chronic int erstitial lung disease or fluid overload. No acute findings.
--- NOTE | 2019-04-04 12:10 | CT ---
EXAMINATION TYPE: CT brain wo con DATE OF EXAM: 04/04/2019 COMPARISON: 03/31/[address] angiogram of the head and neck HISTORY: Altered mental status CT DLP: 1098.4 mGycm Automated exposure control for dose reduction was used. TECHNIQUE: CT scan of the head is performed without contrast. FINDINGS: There is no acute intracranial hemorrhage or midline shift identified. There is diffuse v entricular and sulcal prominence consistent with diffuse age-related cerebral atrophy. Incidentally n oted basal ganglia calcifications. There is low-attenuation in the periventricular white matter consi stent with chronic small vessel ischemic change. Atherosclerosis is noted of the intracranial vascula ture. The globes are intact and the visualized sinuses are clear. The prior CTA of 03/31/2019 there was a 7 x 5.2 mm anterior commuting artery aneurysm. IMPRESSION: 1. No acute intracranial hemorrhage or midline shift. 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 2. Diffuse age-related cerebral atrophy and chronic small vessel ischemic change.
[2019-04-04 12:11] LABS: ALT 32 U/L (9-52); AST 35 U/L (14-36); African American GFR (CKD) >90 (>60 ml/min/1.73 sqM); Alkaline Phosphatase 109 U/L (38-126); Anion Gap 11 mmol/L; Blood Urea Nitrogen 27 mg/dL (7-17); Calcium 10.1 mg/dL (8.4-10.2); Carbon Dioxide 22 mmol/L (22-30); Chloride 99 mmol/L (98-107); Glucose 94 mg/dL (74-99); Potassium 4.6 mmol/L (3.5-5.1); Sodium 132 mmol/L (137-145); Total Bilirubin 0.4 mg/dL (0.2-1.3)
[2019-04-04 12:58] LABS: Appearance,Urine Clear (Clear); Bacteria,Urine Few /hpf; Bilirubin,Urine Negative (Negative); Blood,Urine Negative (Negative); Color,Urine Light Yellow; Glucose,Urine (UA) Negative (Negative); Hyaline Casts,Urine 3 /lpf (0-2); Ketones,Urine Trace (Negative); Leukocyte Esterase,Urine Moderate (Negative); Mucus,Urine Rare /hpf; Nitrite,Urine Negative (Negative); PH, Urine 6.5 (5.0-8.0); Protein,Urine Negative (Negative); RBC,Urine <1 /hpf (0-5); Specific Gravity,Urine 1.013 (1.001-1.035); Squamous Epithelial Cell,Urine 2 /hpf (0-4); Urobilinogen,Urine <2.0 mg/dL (<2.0); WBC,Urine 4 /hpf (0-5)
[2019-04-04 12:59] LABS: Amphetamine Screen,Urine Not Detected (NotDetected); Barbiturate Screen,Urine Not Detected (NotDetected); Benzodiazepines Screen,Urine Not Detected (NotDetected); Cocaine Screen,Urine Not Detected (NotDetected); Methadone Screen, Urine Not Detected (NotDetected); Opiate Screen,Urine Not Detected (NotDetected); Oxycodone Screen, Urine Not Detected (NotDetected); Phencyclidine Screen,Urine Not Detected (NotDetected); Tricyclic Antidepressant,Urine Not Detected (NotDetected); Urn Cannabinoid Scrn Not Detected (NotDetected)
== END 2019-04-04 14:10 | disposition home or self-care (01) ==
LOC: EC 10:02
DX: R41.0 Disorientation, unspecified (principal); S00.83XA Contusion of other part of head, initial encounter; S00.10XA Contusion of unspecified eyelid and periocular area, initial encounter; K21.9 Gastro-esophageal reflux disease without esophagitis; E78.5 Hyperlipidemia, unspecified; I10 Essential (primary) hypertension; M19.90 Unspecified osteoarthritis, unspecified site; F32.9 Major depressive disorder, single episode, unspecified; Z88.0 Allergy status to penicillin; Z88.1 Allergy status to other antibiotic agents; Z88.2 Allergy status to sulfonamides; Z88.5 Allergy status to narcotic agent; Z91.013 Allergy to seafood; Z91.018 Allergy to other foods; Z79.1 Long term (current) use of non-steroidal anti-inflammatories (NSAID); Z79.52 Long term (current) use of systemic steroids; Z79.82 Long term (current) use of aspirin; Z79.890 Hormone replacement therapy; Z79.899 Other long term (current) drug therapy; Z86.14 Personal history of Methicillin resistant Staphylococcus aureus infection; Z86.73 Personal history of transient ischemic attack (TIA), and cerebral infarction without residual deficits; W19.XXXA Unspecified fall, initial encounter
CPT/HCPCS: 36415; 70450; 71046; 80053; 80306; 81001; 84484; 85025; 85610; 85730; 93005; 96360; 96361; 99285